=== PATIENT | male | born 1955 | race African-American/Black ===

== ENCOUNTER 2020-10-30 13:31 | Emergency (ER) | payer OTHER ==
--- NOTE | 2020-10-30 16:30 | RAD REPORT ---
EXAM DESCRIPTION: RAD - Foot Right 3 View - 10/30/2020 4:20 pm CLINICAL HISTORY: Right foot pain FINDINGS: No fracture or dislocation is seen. Vascular calcifications are present. Small calcaneal spur.
[2020-10-30] MEDS ORDERED: VANCOMYCIN/NS 1 gm 1 GM/250 ML BAG IV SCH (17:00)
[2020-10-30 17:09] LABS: Absolute Lymphocytes (CBC) 1.6 K/uL (0.7-4.9); Basophils % 0.8 % (0-1.3); Hematocrit 39.8 % (39.6-49.0); Lymphocytes % 26.6 % (15.3-44.8); MPV 9.3 fL (7.6-11.3); RBC Red Blood Cell Count 4.72 M/uL (4.33-5.43)
[2020-10-30 17:24] LABS: Potassium 4.4 mmol/L (3.5-5.1)
--- NOTE | 2020-10-30 17:42 | ER ---
Nurse's Notes [facility] Name: Willy Yoo Age: 64 yrs Sex: Male : 1955 Arrival Date: 10/30/2020 Time: 13:35 Bed 4 Private MD: Diagnosis: Open wound of foot-right great toe Presentation: 10/30 13:41 Chief complaint: Patient states: R foot 1st digit pain, swelling, and wound since ll1 08/27/20. Seen at [facility], prescribed nuzyra. Cant afford this RX. No fever. Coronavirus screen: Client denies travel out of the [place] in the last 14 days. At this time, the client does not indicate any symptoms associated with coronavirus-19. Ebola Screen: Patient denies travel to an Ebola-affected area in the 21 days before illness onset. Initial Sepsis Screen: Does the patient meet any 2 criteria? No. Patient's initial sepsis screen is negative. Does the patient have a suspected source of infection? Yes: Skin breakdown/wound. Risk Assessment: Do you want to hurt yourself or someone else? Patient reports no desire to harm self or others. Onset of symptoms was August 27, 2020. 13:41 Method Of Arrival: Ambulatory ll1 13:41 Acuity: JARAD 3 ll1 Historical: - Allergies: 13:40 No Known Allergies; ll1 - PMHx: 13:40 Diabetes - NIDDM; High Cholesterol; ll1 - PSHx: 13:40 None; ll1 - Immunization history:: Flu vaccine is not up to date. - Social history:: Smoking status: Patient denies any tobacco usage or history of. Screenin:56 Abuse screen: Denies threats or abuse. Nutritional screening: No deficits noted. ap3 Tuberculosis screening: No symptoms or risk factors identified. Fall Risk None identified. Assessment: 16:48 General: Appears in no apparent distress. well groomed, Behavior is calm, cooperative. ap3 Pain: Denies pain. Neuro: Level of Consciousness is awake, alert, obeys commands, Oriented to person, place, time, Gait is steady. Cardiovascular: Patient's skin is warm and dry. Derm: Skin is patients right great toe is black in color. Musculoskeletal: Injury Description:. 17:28 Reassessment: Patient appears in no apparent distress at this time. No changes from ap3 previously documented assessment. Patient and/or family updated on plan of care and expected duration. Pain level reassessed. Patient is alert, oriented x 3, equal unlabored respirations, skin warm/dry/pink. Patient denies pain at this time. 18:00 Reassessment: Pt up for discharge but is waiting for vancomycin infusion to be ap3 completed. 19:09 Reassessment: Patient appears in no apparent distress at this time. No changes from ap3 previously documented assessment. Patient and/or family updated on plan of care and expected duration. Pain level reassessed. Patient is alert, oriented x 3, equal unlabored respirations, skin warm/dry/pink. Vital Signs: 13:41 BP 137 / 81; Pulse 75; Resp 17; Temp 97.8; Pulse Ox 96% on R/A; Weight 74.84 kg; Height ll1 5 ft. 10 in. (177.80 cm); Pain 1/10; 16:58 BP 138 / 95 LA Sitting (auto/); Pulse 77; Pulse Ox 98% on R/A; ap3 13:41 Body Mass Index 23.67 (74.84 kg, 177.80 cm) ll1 ED Course: 13:35 Patient arrived in ED. ds1 13:41 Arm band placed on. ll1 13:54 Triage completed. ll1 15:38 Ira[facility] Lemon [facility]C [facility]. kb 15:38 Chance Davis MD is Attending Physician. kb 16:06 Adele Logan, LEELEE is Primary Nurse. sv 16:19 Foot Right 3 View XRAY In Process Unspecified. EDMS 16:40 Inserted saline lock: 20 gauge in left forearm, using aseptic technique. Blood ap3 collected. 16:45 Initial lab(s) drawn, by co, sent to lab. First set of blood cultures drawn by me. ap3 16:55 Second set of blood cultures drawn by co. ap3 16:57 Patient has correct armband on for positive identification. Bed in low position. Call ap3 light in reach. Side rails up X 1. Adult w/ patient. NIBP on. Door closed. Warm blanket given. Head of bed. 17:15 CBC with Diff Sent. ap3 17:15 Basic Metabolic Panel Sent. ap3 17:15 Blood Culture Adult (2) Sent. ap3 17:28 Dressings: non-adherent dressing x 1 right first toe. ap3 17:32 Primary Nurse role handed off by Adele Logan RN ap3 17:32 Evelyn Hale, LEELEE is Primary Nurse. ap3 19:09 No provider procedures requiring assistance completed. IV discontinued, intact, ap3 bleeding controlled, No redness/swelling at site. Pressure dressing applied. Administered Medications: 17:14 Drug: vancoMYCIN 1 grams Route: IVPB; Infused Over: 2 hrs; Site: left forearm; ap3 19:11 Follow up: Response: No adverse reaction; IV Status: Completed infusion; IV Intake: ap3 250ml Intake: 19:11 IV: 250ml; Total: 250ml. ap3 Outcome: 17:41 Discharge ordered by . kb 19:09 Discharged to home ambulatory, with family. ap3 19:09 Condition: stable 19:09 Discharge instructions given to patient, Instructed on discharge instructions, follow up and referral plans. medication usage, Demonstrated understanding of instructions, follow-up care, medications, Prescriptions given X 2. 19:11 Patient left the ED. ap3 Signatures: Dispatcher [employer] EDMD Irais Lemon, NAIL EXPERT-C NAIL EXPERT-Ckb Adele Logan, Violeta Roque RN ds1 Evelyn Hale RN RN ap3 Lewis, Lynsay, RN RN ll1
--- NOTE | 2020-10-30 17:42 | EDPHYS ---
Physician Documentation [facility] Name: Willy Yoo Age: 64 yrs Sex: Male : 1955 Arrival Date: 10/30/2020 Time: 13:35 Bed 4 Private MD: ED Physician Chance Davis HPI: 10/30 16:14 This 64 yrs old Black Male presents to ER via Ambulatory with complaints of Foot Issue. kb 16:14 The patient presents with pain, swelling, redness, ulceration, discoloration. The kb complaints affect the right first toe. Context: resulted from started as fungal infection, ulcer started and hasn't healed, the patient can fully bear weight, the patient is able to ambulate. Onset: The symptoms/episode began/occurred 1 month(s) ago. Modifying factors: The symptoms are alleviated by nothing, the symptoms are aggravated by nothing. Associated signs and symptoms: Pertinent positives: swelling, Pertinent negatives: calf tenderness, fever, nausea, numbness, rash, tingling, vomiting, warmth, weakness. Severity of symptoms: At their worst the symptoms were moderate, in the emergency department the symptoms are unchanged. The patient has not experienced similar symptoms in the past. The patient has not recently seen a physician. Pt went to a clinical biochemical geneticist 2 days ago for this and was prescribed an antibiotic that was too expensive so he came to see if there was something else that he could get, maybe an IV antibiotic. Historical: - Allergies: 13:40 No Known Allergies; ll1 - PMHx: 13:40 Diabetes - NIDDM; High Cholesterol; ll1 - PSHx: 13:40 None; ll1 - Immunization history:: Flu vaccine is not up to date. - Social history:: Smoking status: Patient denies any tobacco usage or history of. ROS: 16:11 Constitutional: Negative for fever, chills, and weight loss, Respiratory: Negative for kb shortness of breath, cough, wheezing, and pleuritic chest pain, MS/Extremity: Negative for injury and deformity, Neuro: Negative for headache, weakness, numbness, tingling, and seizure. 16:11 Skin: Positive for erythema, swelling, ulceration, of the right first toe. Exam: 16:12 Constitutional: This is a well developed, well nourished patient who is awake, alert, kb and in no acute distress. Head/Face: Normocephalic, atraumatic. Respiratory: Respirations even and unlabored. No increased work of breathing, no retractions or nasal flaring. MS/ Extremity: Pulses equal, no cyanosis. Neurovascular intact. Full, normal range of motion. Neuro: Awake and alert, GCS 15, oriented to person, place, time, and situation. Moves all extremities. Normal gait. 16:12 Skin: lesion(s), noted, and can be described as erythematous, ulcerated, violaceous, located on the right first toe. Vital Signs: 13:41 BP 137 / 81; Pulse 75; Resp 17; Temp 97.8; Pulse Ox 96% on R/A; Weight 74.84 kg; Height ll1 5 ft. 10 in. (177.80 cm); Pain 1/10; 16:58 BP 138 / 95 LA Sitting (auto/); Pulse 77; Pulse Ox 98% on R/A; ap3 13:41 Body Mass Index 23.67 (74.84 kg, 177.80 cm) ll1 MDM: 15:38 Patient medically screened. kb 16:10 Data reviewed: vital signs, nurses notes. Data interpreted: Pulse oximetry: on room air kb is 96 %. Interpretation: normal. 17:40 Counseling: I had a detailed discussion with the patient and/or guardian regarding: the kb historical points, exam findings, and any diagnostic results supporting the discharge/admit diagnosis, lab results, radiology results, the need for outpatient follow up, a clinical biochemical geneticist, to return to the emergency department if symptoms worsen or persist or if there are any questions or concerns that arise at home. ED course: Pt has follow up appt with clinical biochemical geneticist on Tuesday. 10/30 15:53 Order name: Basic Metabolic Panel kb 10/30 15:53 Order name: CBC with Diff kb 10/30 15:53 Order name: Blood Culture Adult (2) kb 10/30 15:53 Order name: Basic Metabolic Panel; Complete Time: 17:25 EDMS 10/30 15:53 Order name: CBC with Automated Diff; Complete Time: 17:14 EDMS 10/30 15:53 Order name: Blood Culture EDMS 10/30 15:53 Order name: IV Start; Complete Time: 17:15 kb 10/30 15:53 Order name: Foot Right 3 View XRAY; Complete Time: 16:32 kb 10/30 17:40 Order name: Wound dressing; Complete Time: 17:56 kb Administered Medications: 17:14 Drug: vancoMYCIN 1 grams Route: IVPB; Infused Over: 2 hrs; Site: left forearm; ap3 19:11 Follow up: Response: No adverse reaction; IV Status: Completed infusion; IV Intake: ap3 250ml Disposition: 10/31 06:51 Co-signature as Attending Physician, Chance Davis MD I agree with the assessment and kdr plan of care. Disposition: 10/30/20 17:41 Discharged to Home. Impression: Open wound of foot - right great toe. - Condition is Stable. - Discharge Instructions: Wound Care. - Prescriptions for Doxycycline Hyclate 100 mg Oral Tablet - take 1 tablet by ORAL route every 12 hours; 20 tablet. Bactrim DS 800- 160 mg Oral Tablet - take 1 tablet by ORAL route every 12 hours for 10 days; 20 tablet. - Medication Reconciliation Form, Thank You Letter, Antibiotic Education, Prescription Opioid Use form. - Follow up: Emergency Department; When: As needed; Reason: Worsening of condition. Follow up: Private Physician; When: 2 - 3 days; Reason: Recheck today's complaints, Continuance of care, Re-evaluation by your physician. Signatures: Dispatcher [employer] EDMS Irais Lemon, ÁLVARO-C DEBURRING MACHINE OPERATOR-Chance Talbert MD MD [facility] Evelyn Hale RN RN ap3 Milly Muñoz RN RN ll1 Corrections: (The following items were deleted from the chart) 10/30 19:11 17:41 10/30/2020 17:41 Discharged to Home. Impression: Open wound of foot - right great ap3 toe. Condition is Stable. Forms are Medication Reconciliation Form, Thank You Letter, Antibiotic Education, Prescription Opioid Use. Follow up: Emergency Department; When: As needed; Reason: Worsening of condition. Follow up: Private Physician; When: 2 - 3 days; Reason: Recheck today's complaints, Continuance of care, Re-evaluation by your physician. kb
[2020-10-30 19:19] VITALS: TEMP 97.8
[2020-10-30 19:20] VITALS: BP 138/95; O2SAT 98
== END 2020-10-30 19:11 | disposition home or self-care (01) ==
LOC: ER 13:31
DX: S91.101A Unspecified open wound of right great toe without damage to nail, initial encounter (principal); E11.9 Type 2 diabetes mellitus without complications
CPT/HCPCS: 96365; 87040 ×2; 85025; 80048; 36415; 73630; 99284; 96366; J3370

== ENCOUNTER 2023-06-15 17:45 | Inpatient (IN) | payer OTHER ==
--- OUTSIDE RECORDS SUMMARY | 2023-06-15 17:50 | XMS REPORT | Continuity of Care Document ---
:1955 Author Organization [facility] t Address [address] [place] [address] [address] [place] [address] Care Team Providers Name Role Phone Asked, No Pcp Primary Care Physician Unavailable JUDSON FOX Attending Clinician Unavailable BERNARDINO LUGO Attending Clinician Unavailable BERNARDINO LUGO Attending Clinician Unavailable ERICKA VALDES Attending Clinician Unavailable LAB90 Attending Clinician Unavailable XI MEJÍA Attending Clinician Unavailable August Munguia Attending Clinician TORIN RASCON Attending Clinician Unavailable JUDSON FOX Attending Clinician Unavailable Bruce Heller MD Attending Clinician Saeed Mccartney MD Attending Clinician Joann Durant DPM Attending Clinician Payers Payer Name Policy Type Policy Number Effective Date Expiration Date S yesenia [employer] MEDICARE PPO [id number] 2020 00:00:00 AET[employer] [place] PPO 5 [id number] 2021 00:00:00 Problems Condition Condition Condition Status Onset Resolution Last Treating Co mments Source Name Details Category Date Date Treatment Clinician Date 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 Ghislaine diabetes diabetes 1-29 Seybol d mellitus mellitus 00:00: - without without 00 Externa complicati complicati l on, on, without without long-term long-term current current use of use of insulin insulin DM type 2 DM type 2 Disease Active 2021-07 Ajith cotton with with 08-15 Seybold diabetic diabetic 00:00: - mixed mixed 00 Externa hyperlipid hyperlipid l emia emia Hyperlipid Hyperlipid Disease Active 2021-07 Marly gray emia 08-15 Seybold 00:00: - 00 Externa l Status Status Disease Active [facility] post left post left 03-20 Heal th hip hip 00:00: replacemen replacemen 00 t t Primary Primary Disease Active [facility] osteoarthr osteoarthr 01-12 He alth itis of itis of 00:00: left hip left hip 00 Hip pain, Hip pain, Disease Active [facility] left left 01-12 Health 00:00: 00 Hyperlipid Hyperlipi Problem Active 2021-02-14 Memoria emia, demia, 04:10:54 l unspecifie unspecifie He yanique d d hyperlipid hyperlipid emia type emia type Active Problem 02/14/2021 Wen Clay M.D P.A. PAD PAD Problem Active 2021-02-14 Ponceor ia (periphera (periphera 04:10:54 l l artery l artery Rivera n disease) disease) Active Problem 02/14/2021 Wen Clay M.D P.A. Type 2 Type 2 Problem Active 2021-02-14 Neymar fernie diabetes diabetes 04:10:54 l mellitus mellitus Rivera n without without complicati complicati on, on, without without long-term long-term current current use of use of insulin insulin Active Problem 02/14/2021 Wen Clay M.D P.A. Pre-op Pre-op Diagnosis Active 2021-02-14 Wv moria evaluation evaluation 04:10:54 l Active Ozzie Diagnosis 02/14/2021 Wen Clay M.D P.A. Prostate Prostate Diagnosis Active 2020-12-29 [place] cancer cancer 04:10:27 l screening screening Herm da Active Diagnosis 12/29/2020 Wen Clay M.D P.A. Encounter Encounter Diagnosis Active 2020-12-29 Memoria for for 04:10:27 l [facility] adult adult medical medical examinatio examinatio n without n without abnormal abnormal findings findings Active Diagnosis 12/29/2020 Wen Cedillo Allergies, Adverse Reactions, Alerts Allergy Allergy Status Severity Reaction(s) Onset Inactive Treating Comm ents Source Name Type Date Date Clinician Rolf Bansal Active Info Not Neymar fernie Available 08 l 00:00: Ozzie 00 Social History Social Habit Start Date Stop Date Quantity Comments Source History [facility] Health Alcohol Std Drinks History [facility] Health Alcohol Binge History [facility] Alcohol Comment [facility] intake 2022-06-15 2022-06-15 Lifetime Ghislaine Cotton bold - 00:00:00 00:00:00 non-drinker External (finding) Exposure to 2022-05-25 2022-06-04 Not sure Ghislaine George d - SARS-CoV-2 (event) 00:00:00 08:06:00 Squirrel Man al History of Social 2021-05-06 2021-05-[address] function 00:00:00 00:00:00 Hospital Tobacco use and 2021-01-12 2021-01-12 Smokeless [facility] exposure 00:00:00 00:00:00 tobacco non-user History [facility] 2021-01-12 2021-01-12 [facility] Alcohol Frequency 00:00:00 00:00:00 Sex [birth year] [employer] 00:00:00 00:00:00 Hospital Smoking Status Start Date Stop Date Source Unknown if ever smoked [facility] Never smoked tobacco Ghislaine Dorsey old - External Medications Ordered Filled Start Stop Current Ordering Indication Dosage Frequency Signature Comments Components Source Medication Medication Date Date Medication? Clinician (SIG) Name Name French Espino 2021-07 Yes 50mg Take 50 mg K elsey MG oral 1-08 by mouth Seybold Tablet 00:00: daily - 00 Externa l Jardiance 2021-07 Yes 1{tbl} Take 1 Gabriella ey 25 MG oral 1-08 tablet by Seyb old Tablet 00:00: mouth 2 - 00 times Externa daily FOR l 90 DAYS Atorvastati 2021-07 Yes 20mg Take 20 mg Ghislaine n Calcium 1-06 by mouth 2 Seyb old 20 MG oral 00:00: times - Tablet 00 daily FOR Externa 90 DAYS l Metformin Yes 500mg Take 500 Ajith sey HCl ER 500 9-13 mg by Seybold MG oral 00:00: mouth 2 - TABLET SR 00 times Externa 24 HR daily l Xarelto 2.5 Yes 2.5mg Q.5D Take 2.5 U T MG tablet 9-23 mg by Health 00:00: mouth 2 00 (two) times a day. Xarelto 2.5 Yes 2.5mg Q.5D Take 2.5 U T MG tablet 9-23 mg by Health 00:00: mouth 2 00 (two) times a day. meloxicam 2021- No [id number] 15mg QD Take 1 UT (Mobic) 15 03-20 tablet (15 He alth MG tablet 00:00: 04:59 mg total) 00 :00 by mouth 1 (one) time each day. meloxicam 2021- No [id number] 15mg QD Take 1 UT (Mobic) 15 03-20 tablet (15 He alth MG tablet 00:00: 04:59 mg total) 00 :00 by mouth 1 (one) time each day. meloxicam 2021- No [id number] 15mg QD Take 1 UT (Mobic) 15 03-20 tablet (15 He alth MG tablet 00:00: 04:59 mg total) 00 :00 by mouth 1 (one) time each day. meloxicam 2021- No [id number] 15mg QD Take 1 UT (Mobic) 15 03-20 tablet (15 He alth MG tablet 00:00: 04:59 mg total) 00 :00 by mouth 1 (one) time each day. HYDROcodone 2020- No [id number] 1{tbl} Take 1 UT -acetaminop 03-20 tablet by He alth hen ([place]) 00:00: 04:59 mouth 5-325 MG 00 :00 every 4 tablet (four) hours if needed for severe pain for up to 7 days. HYDROcodone 2020- No [id number] 1{tbl} Take 1 UT -acetaminop -09 23-11 tablet by He alth hen ([place]) 00:00: 04:59 mouth 5-325 MG 00 :00 every 4 tablet (four) hours if needed for severe pain for up to 7 days. pregabalin Yes [id number] 100mg Q.[id number] Take 1 UT (Lyrica) 8-24 [id number] capsule He alth 100 MG 00:00: 3D (100 mg capsule 00 total) by mouth 3 (three) times a day. pregabalin Yes [id number] 100mg Q.[id number] Take 1 UT (Lyrica) 8- [id number] capsule He alth 100 MG 00:00: 3D (100 mg capsule 00 total) by mouth 3 (three) times a day. docusate 2020- No [id number] 100mg Q.5D Take 1 UT sodium 03-10 capsule Health (Colace) 00:00: 04:59 (100 mg 100 MG 00 :00 total) by capsule mouth 2 (two) times a day if needed for constipati on. docusate 2020- No [id number] 100mg Q.5D Take 1 UT sodium 8-04-25 capsule Health (Colace) 00:00: 04:59 (100 mg 100 MG 00 :00 total) by capsule mouth 2 (two) times a day if needed for constipati on. docusate 2020- No [id number] 100mg Q.5D Take 1 UT sodium 8-04-25 capsule Health (Colace) 00:00: 04:59 (100 mg 100 MG 00 :00 total) by capsule mouth 2 (two) times a day if needed for constipati on. docusate 2020- No [id number] 100mg Q.5D Take 1 UT sodium 8-24 04-25 capsule Health (Colace) 00:00: 04:59 (100 mg 100 MG 00 :00 total) by capsule mouth 2 (two) times a day if needed for constipati on. docusate 2020- No [id number] 100mg Q.5D Take 1 UT sodium 03-10 capsule Health (Colace) 00:00: 04:59 (100 mg 100 MG 00 :00 total) by capsule mouth 2 (two) times a day if needed for constipati on. docusate 2020- No [id number] 100mg Q.5D Take 1 UT sodium 03-10 capsule Health (Colace) 00:00: 04:59 (100 mg 100 MG 00 :00 total) by capsule mouth 2 (two) times a day if needed for constipati on. pregabalin 2020- No [id number] 100mg Q.[id number] Take 1 UT (Lyrica) 03-10 [id number] capsule H ealth 100 MG 00:00: 04:59 3D (100 mg capsule 00 :00 total) by mouth 3 (three) times a day. pregabalin 2020- No [id number] 100mg Q.[id number] Take 1 UT (Lyrica) 03-10 [id number] capsule H ealth 100 MG 00:00: 04:59 3D (100 mg capsule 00 :00 total) by mouth 3 (three) times a day. pregabalin 2020- No [id number] 100mg Q.[id number] Take 1 UT (Lyrica) 03-10 [id number] capsule H ealth 100 MG 00:00: 04:59 3D (100 mg capsule 00 :00 total) by mouth 3 (three) times a day. pregabalin 2020- No [id number] 100mg Q.[id number] Take 1 UT (Lyrica) 03-10 [id number] capsule H ealth 100 MG 00:00: 04:59 3D (100 mg capsule 00 :00 total) by mouth 3 (three) times a day. aspirin 81 2020- No 81mg Q.5D Take 1 UT MG EC 03-10 tablet (81 Health tablet 00:00: 04:59 mg total) 00 :00 by mouth 2 (two) times a day for 20 days. For DVT prophylaxi s aspirin 81 2020- No 81mg Q.5D Take 1 UT MG EC 03-10-14 tablet (81 Health tablet 00:00: 04:59 mg total) 00 :00 by mouth 2 (two) times a day for 20 days. For DVT prophylaxi s aspirin 81 2020-0 2020- No 81mg Q.5D Take 1 UT MG EC 03-10-14 tablet (81 Health tablet 00:00: 04:59 mg total) 00 :00 by mouth 2 (two) times a day for 20 days. For DVT prophylaxi s aspirin 81 0 2020- No 81mg Q.5D Take 1 UT MG EC 03-10-14 tablet (81 Health tablet 00:00: 04:59 mg total) 00 :00 by mouth 2 (two) times a day for 20 days. For DVT prophylaxi s ferrous Yes 1 TAB BY UT sulfate 325 8-23 MOUTH Health (65 Fe) MG 00:00: DAILY,INST EC tablet 00 R GIVE WITH ORANGE JUICE ferrous Yes 1 TAB BY UT sulfate 325 8-23 MOUTH Health (65 Fe) MG 00:00: DAILY,INST EC tablet 00 R GIVE WITH ORANGE JUICE Doxycycline Yes Gulnur Kul as Memoria Hyclate - [place] directed l 04:10: Juluvia Yes Gulnur Kul 1 tablet Memoria - [place] l 04:10: Santyl Yes Gulnur Kul not Memor ia 7- [place] defined l 04:10: Atorvastati Yes Gulnur Kul 1 tablet Memoria n Calcium 7- [place] l 04:10: Metformin Yes Gulnur Kul 1 tablet Memoria HCl 7- [place] with a l 04:10: meal Doxycycline Yes Gulnur Kul as Memoria Hyclate 7- [place] directed l 04:10: Januvia Yes Gulnur Kul 1 tablet Memoria 7- [place] l 04:10: Santyl Yes Gulnur Kul not Memor ia 7-09 [place] defined l 04:10: Atorvastati Yes Gulnur Kul 1 tablet Memoria n Calcium 7-09 [place] l 04:10: Metformin Yes Gulnur Kul 1 tablet Memoria HCl 7-09 [place] with a l 04:10: meal Doxycycline Yes Gulnur Kul as Memoria Hyclate 7-09 [place] directed l 04:10: ia Yes Gulnur Kul 1 tablet Memoria 7-09 [place] l 04:10: Santyl Yes Gulnur Kul not Memor ia 7-09 [place] defined l 04:10: Atorvastati Yes Gulnur Kul 1 tablet Memoria n Calcium 7-09 [place] l 04:10: Metformin Yes Gulnur Kul 1 tablet Memoria HCl 7-09 [place] with a l 04:10: meal Doxycycline Yes Gulnur Kul as Memoria Hyclate 7-09 [place] directed l 04:10: ia Yes Gulnur Kul 1 tablet Memoria 7-09 [place] l 04:10: Santyl Yes Gulnur Kul not Memor ia 7-09 [place] defined l 04:10: Atorvastati Yes Gulnur Kul 1 tablet Memoria n Calcium 7-09 [place] l 04:10: Metformin Yes Gulnur Kul 1 tablet Memoria HCl 7-09 [place] with a l 04:10: meal Doxycycline Yes Gulnur Kul as Memoria Hyclate 7-09 [place] directed l 04:10: ia Yes Gulnur Kul 1 tablet Memoria 7-09 [place] l 04:10: Santyl Yes Gulnur Kul not Memor ia 7-09 [place] defined l 04:10: Metformin Yes Gulnur Kul 1 tablet Memoria HCl 7-09 [place] with a l 04:10: meal Atorvastati Yes Gulnur Kul 1 tablet Memoria n Calcium 7-09 [place] l 04:10: Juluvia Yes Gulnur Kul 1 tablet Memoria 7-09 [place] l 04:10: Doxycycline Yes Gulnur Kul as Memoria Hyclate 7-09 [place] directed l 04:10: Santyl Yes Gulnur Kul not Memor ia 7-09 [place] defined l 04:10: Metformin Yes Gulnur Kul 1 tablet Memoria HCl 7-09 [place] with a l 04:10: meal Atorvastati Yes Gulnur Kul 1 tablet Memoria n Calcium 7-09 [place] l 04:10: ia Yes Gulnur Kul 1 tablet Memoria 7-09 [place] l 04:10: Doxycycline Yes Gulnur Kul as Memoria Hyclate 7-09 [place] directed l 04:10: Santyl Yes Gulnur Kul not Memor ia 7-09 [place] defined l 04:10: Metformin Yes Gulnur Kul 1 tablet Memoria HCl 7-09 [place] with a l 04:10: meal Atorvastati Yes Gulnur Kul 1 tablet Memoria n Calcium 7-09 [place] l 04:10: Juluvia Yes Gulnur Kul 1 tablet Memoria 7-09 [place] l 04:10: Doxycycline Yes Gulnur Kul as Memoria Hyclate 7-09 [place] directed l 04:10: Santyl Yes Gulnur Kul not Memor ia 7-09 [place] defined l 04:10: Santyl Yes Gulnur Kul not Memor ia 7-09 [place] defined l 04:10: Metformin Yes Gulnur Kul 1 tablet Memoria HCl 7-09 [place] with a l 04:10: meal Atorvastati Yes Gulnur Kul 1 tablet Memoria n Calcium 7-09 [place] l 04:10: Januvia Yes Gulnur Kul 1 tablet Memoria 7-09 [place] l 04:10: Doxycycline Yes Gulnur Kul as Memoria Hyclate 7-09 [place] directed l 04:10: Metformin Yes Gulnur Kul 1 tablet Memoria HCl 7-09 [place] with a l 04:10: meal Atorvastati Yes Gulnur Kul 1 tablet Memoria n Calcium 7-09 [place] l 04:10: Januvia Yes Gulnur Kul 1 tablet Memoria 7-09 [place] l 04:10: Doxycycline Yes Gulnur Kul as Memoria Hyclate 7-09 [place] directed l 04:10: Santyl Yes Gulnur Kul not Memor ia 7-09 [place] defined l 04:10: Atorvastati Yes Gulnur Kul 1 tablet Memoria n Calcium 7-09 [place] l 04:10: Metformin Yes Gulnur Kul 1 tablet Memoria HCl 7-09 [place] with a l 04:10: meal meloxicam 2021- No [id number] 15mg QD Take 1 UT (Mobic) 15 01-22- tablet (15 He alth MG tablet 00:00: 04:59 mg total) 00 :00 by mouth 1 (one) time each day. meloxicam 2021- No [id number] 15mg QD Take 1 UT (Mobic) 15 01-22 tablet (15 He alth MG tablet 00:00: 04:59 mg total) 00 :00 by mouth 1 (one) time each day. meloxicam No [id number] 15mg QD Take 1 UT (Mobic) 15 01-22 tablet (15 He alth MG tablet 00:00: 04:59 mg total) 00 :00 by mouth 1 (one) time each day. meloxicam No [id number] 15mg QD Take 1 UT (Mobic) 15 01-22 tablet (15 He alth MG tablet 00:00: 00:00 mg total) 00 :00 by mouth 1 (one) time each day. meloxicam No [id number] 15mg QD Take 1 UT (Mobic) 15 01-22 tablet (15 He alth MG tablet 00:00: 00:00 mg total) 00 :00 by mouth 1 (one) time each day. meloxicam No [id number] 15mg QD Take 1 UT (Mobic) 15 01-22 tablet (15 He alth MG tablet 00:00: 00:00 mg total) 00 :00 by mouth 1 (one) time each day. meloxicam No [id number] 15mg QD Take 1 UT (Mobic) 15 01-22 tablet (15 He alth MG tablet 00:00: 00:00 mg total) 00 :00 by mouth 1 (one) time each day. methylPREDN 2020-0 Yes [id number] Use as UT ISolone 6-28 9108 directed Health (Medrol 00:00: by package Dospak) 4 00 instructio MG tablets ns methylPREDN 2020-0 Yes [id number] Use as UT ISolone 6-28 9108 directed Health (Medrol 00:00: by package Dospak) 4 00 instructio MG tablets ns methylPREDN 2021-0 Yes [id number] Use as UT ISolone 6-28 9108 directed Health (Medrol 00:00: by package Dospak) 4 00 instructio MG tablets ns methylPREDN 2020-0 Yes [id number] Use as UT ISolone 6-28 9108 directed Health (Medrol 00:00: by package Dospak) 4 00 instructio MG tablets ns methylPREDN 2021-0 Yes [id number] Use as UT ISolone 6-28 9108 directed Health (Medrol 00:00: by package Dospak) 4 00 instructio MG tablets ns methylPREDN 2021-0 Yes [id number] Use as UT ISolone 6-28 9108 directed Health (Medrol 00:00: by package Dospak) 4 00 instructio MG tablets ns methylPREDN 2021-0 Yes [id number] Use as UT ISolone 6-28 9108 directed Health (Medrol 00:00: by package Dospak) 4 00 instructio MG tablets ns methylPREDN 2021-0 Yes [id number] Use as UT ISolone 6-28 9108 directed Health (Medrol 00:00: by package Dospak) 4 00 instructio MG tablets ns methylPREDN 2021-0 Yes [id number] Use as UT ISolone 6-28 9108 directed Health (Medrol 00:00: by package Dospak) 4 00 instructio MG tablets ns methylPREDN 2021-0 Yes [id number] Use as UT ISolone 6-28 9108 directed Health (Medrol 00:00: by package Dospak) 4 00 instructio MG tablets ns methylPREDN 2021-0 Yes [id number] Use as UT ISolone 6-28 9108 directed Health (Medrol 00:00: by package Dospak) 4 00 instructio MG tablets ns methylPREDN 2021-0 Yes [id number] Use as UT ISolone 6-28 9108 directed Health (Medrol 00:00: by package Dospak) 4 00 instructio MG tablets ns methylPREDN 2021-0 Yes [id number] Use as UT ISolone 6-28 9108 directed Health (Medrol 00:00: by package Dospak) 4 00 instructio MG tablets ns meloxicam 1-0 2021- No [id number] 15mg QD Take 1 UT (Mobic) 01-12 9108 tablet (15 He alth MG tablet 00:00: 04:59 mg total) 00 :00 by mouth 1 (one) time each day. meloxicam 1-0 2021- No [id number] 15mg QD Take 1 UT (Mobic) 15 01-12 9108 tablet (15 He alth MG tablet 00:00: 04:59 mg total) 00 :00 by mouth 1 (one) time each day. meloxicam 2021- No [id number] 15mg QD Take 1 UT (Mobic) 15 01-12 9108 tablet (15 He alth MG tablet 00:00: 04:59 mg total) 00 :00 by mouth 1 (one) time each day. meloxicam 2021- No [id number] 15mg QD Take 1 UT (Mobic) 15 01-12 9108 tablet (15 He alth MG tablet 00:00: 04:59 mg total) 00 :00 by mouth 1 (one) time each day. meloxicam 2020- No [id number] 15mg QD Take 1 UT (Mobic) 15 01-12 9108 tablet (15 He alth MG tablet 00:00: 00:00 mg total) 00 :00 by mouth 1 (one) time each day. meloxicam 2020- No [id number] 15mg QD Take 1 UT (Mobic) 15 01-12 9108 tablet (15 He alth MG tablet 00:00: 00:00 mg total) 00 :00 by mouth 1 (one) time each day. meloxicam 2020- No [id number] 15mg QD Take 1 UT (Mobic) 15 01-12 9108 tablet (15 He alth MG tablet 00:00: 00:00 mg total) 00 :00 by mouth 1 (one) time each day. meloxicam 2020- No [id number] 15mg QD Take 1 UT (Mobic) 15 01-12 9108 tablet (15 He alth MG tablet 00:00: 00:00 mg total) 00 :00 by mouth 1 (one) time each day. Januvia 100 0 Yes UT MG tablet 01-09 Health 00:00: 00 Januvia 100 0 Yes UT MG tablet 01-09 Health 00:00: 00 Januvia 100 2020-0 Yes UT MG tablet 01-09 Health 00:00: 00 Januvia 100 2020-0 Yes UT MG tablet 01-09 Health 00:00: 00 French 2020-0 Yes UT MG tablet 01-09 Health 00:00: 00 French 2020-0 Yes UT MG tablet 01-09 Health 00:00: 00 French 2020-0 Yes UT MG tablet 01-09 Health 00:00: 00 French 2020-0 Yes UT MG tablet 01-09 Health 00:00: 00 French 2020-0 Yes UT MG tablet 01-09 Health 00:00: 00 French 2020-0 Yes UT MG tablet 01-09 Health 00:00: 00 French 2020-0 Yes UT MG tablet 01-09 Health 00:00: 00 French 2020-0 Yes UT MG tablet 01-09 Health 00:00: 00 French 2020-0 Yes UT MG tablet 01-09 Health 00:00: 00 Doxycycline 2020-0 Yes Wen not Mem oria 6-14 [facility] defined l 04:10: Ozzie Doxycycline 0 Yes Wen not Mem oria 6-14 [facility] defined l 04:10: Ozzie Doxycycline 0 Yes Wen not Mem oria 6-14 [facility] defined l 04:10: Ozzie Doxycycline 2020-0 Yes Wen not Mem oria 6-14 [facility] defined l 04:10: Ozzie Doxycycline 2020-0 Yes Wen not Mem oria 6-14 [facility] defined l 04:10: Ozzie Doxycycline 2020-0 Yes Wen not Mem oria 6-14 [facility] defined l 04:10: Ozzie Doxycycline 2020-0 Yes Wen not Mem oria 6-14 [facility] defined l 04:10: Ozzie Doxycycline 2020-0 Yes Wen not Mem oria 6-14 [facility] defined l 04:10: Ozzie Doxycycline 2020-0 Yes Wen not Mem oria 6-14 [facility] defined l 04:10: Ozzie Doxycycline 2020-0 Yes Wen not Mem oria 6-14 [facility] defined l 04:10: Ozzie gabapentin 2020-0 Yes UT (Neurontin) 6 Health 100 MG 00:00: capsule 00 gabapentin 2020-0 Yes UT (Neurontin) 6-03 Health 100 MG 00:00: capsule 00 gabapentin 2020-0 Yes UT (Neurontin) 6-03 Health 100 MG 00:00: capsule 00 gabapentin 2020-0 Yes UT (Neurontin) 6-03 Health 100 MG 00:00: capsule 00 gabapentin 202-0 Yes UT (Neurontin) 6-03 Health 100 MG 00:00: capsule 00 gabapentin 2021-0 Yes UT (Neurontin) 6-03 Health 100 MG 00:00: capsule 00 gabapentin 2020-0 Yes UT (Neurontin) 6-03 Health 100 MG 00:00: capsule 00 gabapentin 2020-0 Yes UT (Neurontin) 6-03 Health 100 MG 00:00: capsule 00 gabapentin 2020-0 Yes UT (Neurontin) 6-03 Health 100 MG 00:00: capsule 00 gabapentin 2020-0 Yes UT (Neurontin) 6-03 Health 100 MG 00:00: capsule 00 gabapentin 2020-0 Yes UT (Neurontin) 6-03 Health 100 MG 00:00: capsule 00 gabapentin 2020-0 Yes UT (Neurontin) 6-03 Health 100 MG 00:00: capsule 00 gabapentin 2020-0 Yes UT (Neurontin) 6-03 Health 100 MG 00:00: capsule 00 Santyl 250 2020-0 Yes APPLY UT UNIT/GM 5-06 TOPICALLY Health ointment 00:00: ONCE DAILY 00 FOR DEBRIDEMEN T Santyl 250 2020-0 Yes APPLY UT UNIT/GM 5-06 TOPICALLY Health ointment 00:00: ONCE DAILY 00 FOR DEBRIDEMEN T Santyl 250 2020-0 Yes APPLY UT UNIT/GM 5-06 TOPICALLY Health ointment 00:00: ONCE DAILY 00 FOR DEBRIDEMEN T Santyl 250 2020-0 Yes APPLY UT UNIT/GM 5-06 TOPICALLY Health ointment 00:00: ONCE DAILY 00 FOR DEBRIDEMEN T Santyl 250 2020-0 Yes APPLY UT UNIT/GM 5-06 TOPICALLY Health ointment 00:00: ONCE DAILY 00 FOR DEBRIDEMEN T Santyl 250 2020-0 Yes APPLY UT UNIT/GM 5-06 TOPICALLY Health ointment 00:00: ONCE DAILY 00 FOR DEBRIDEMEN T Santyl 250 2020-0 Yes APPLY UT UNIT/GM 5-06 TOPICALLY Health ointment 00:00: ONCE DAILY 00 FOR DEBRIDEMEN T Santyl 250 2020-0 Yes APPLY UT UNIT/GM 5-06 TOPICALLY Health ointment 00:00: ONCE DAILY 00 FOR DEBRIDEMEN T Santyl 250 2020-0 Yes APPLY UT UNIT/GM 5-06 TOPICALLY Health ointment 00:00: ONCE DAILY 00 FOR DEBRIDEMEN T Santyl 250 2020-0 Yes APPLY UT UNIT/GM 5-06 TOPICALLY Health ointment 00:00: ONCE DAILY 00 FOR DEBRIDEMEN T Santyl 250 2020-0 Yes APPLY UT UNIT/GM 5-06 TOPICALLY Health ointment 00:00: ONCE DAILY 00 FOR DEBRIDEMEN T Santyl 250 2020-0 Yes APPLY UT UNIT/GM 5-06 TOPICALLY Health ointment 00:00: ONCE DAILY 00 FOR DEBRIDEMEN T Santyl 250 2020-0 Yes APPLY UT UNIT/GM 5-06 TOPICALLY Health ointment 00:00: ONCE DAILY 00 FOR DEBRIDEMEN T clopidogrel 1-0 Yes 75mg QD Take 75 mg UT (Plavix) 75 5-05 by mouth 1 He alth MG tablet 00:00: (one) time 00 each day. clopidogrel 2021-0 Yes 75mg QD Take 75 mg UT (Plavix) 75 5-05 by mouth 1 He alth MG tablet 00:00: () time 00 each day. clopidogrel 2021-0 Yes 75mg QD Take 75 mg UT (Plavix) 75 5-05 by mouth 1 He alth MG tablet 00:00: () time 00 each day. clopidogrel 2021-0 Yes 75mg QD Take 75 mg UT (Plavix) 75 5-05 by mouth 1 He alth MG tablet 00:00: () time 00 each day. clopidogrel 2021-0 Yes 75mg QD Take 75 mg UT (Plavix) 75 5-05 by mouth 1 He alth MG tablet 00:00: () time 00 each day. clopidogrel 2021-0 Yes 75mg QD Take 75 mg UT (Plavix) 75 5-05 by mouth 1 He alth MG tablet 00:00: () time 00 each day. clopidogrel 2021-0 Yes 75mg QD Take 75 mg UT (Plavix) 75 5-05 by mouth 1 He alth MG tablet 00:00: () time 00 each day. clopidogrel 2021-0 Yes 75mg QD Take 75 mg UT (Plavix) 75 5-05 by mouth 1 He alth MG tablet 00:00: (one) time 00 each day. clopidogrel 2021-0 Yes 75mg QD Take 75 mg UT (Plavix) 75 5-05 by mouth 1 He alth MG tablet 00:00: (one) time 00 each day. clopidogrel 2021-0 Yes 75mg QD Take 75 mg UT (Plavix) 75 5-05 by mouth 1 He alth MG tablet 00:00: (one) time 00 each day. clopidogrel 2021-0 Yes 75mg QD Take 75 mg UT (Plavix) 75 5-05 by mouth 1 He alth MG tablet 00:00: (one) time 00 each day. clopidogrel 2021-0 Yes 75mg QD Take 75 mg UT (Plavix) 75 5-05 by mouth 1 He alth MG tablet 00:00: (one) time 00 each day. clopidogrel 2021-0 Yes 75mg QD Take 75 mg UT (Plavix) 75 5-05 by mouth 1 He alth MG tablet 00:00: (one) time 00 each day. atorvastati 2021-0 Yes 20mg QD Take 20 mg UT n (Lipitor) 4-27 by mouth 1 He alth 20 MG 00:00: (one) time tablet 00 each day. atorvastati 2021-0 Yes 20mg QD Take 20 mg UT n (Lipitor) 4-27 by mouth 1 He alth 20 MG 00:00: (one) time tablet 00 each day. atorvastati 2021-0 Yes 20mg QD Take 20 mg UT n (Lipitor) 4-27 by mouth 1 He alth 20 MG 00:00: (one) time tablet 00 each day. atorvastati 2021-0 Yes 20mg QD Take 20 mg UT n (Lipitor) 4-27 by mouth 1 He alth 20 MG 00:00: (one) time tablet 00 each day. atorvastati 2021-0 Yes 20mg QD Take 20 mg UT n (Lipitor) 4-27 by mouth 1 He alth 20 MG 00:00: (one) time tablet 00 each day. atorvastati 2021-0 Yes 20mg QD Take 20 mg UT n (Lipitor) 4-27 by mouth 1 He alth 20 MG 00:00: (one) time tablet 00 each day. atorvastati 2021-0 Yes 20mg QD Take 20 mg UT n (Lipitor) 4-27 by mouth 1 He alth 20 MG 00:00: (one) time tablet 00 each day. atorvastati 2021-0 Yes 20mg QD Take 20 mg UT n (Lipitor) 4-27 by mouth 1 He alth 20 MG 00:00: (one) time tablet 00 each day. atorvastati 2021-0 Yes 20mg QD Take 20 mg UT n (Lipitor) 4-27 by mouth 1 He alth 20 MG 00:00: (one) time tablet 00 each day. atorvastati 2021-0 Yes 20mg QD Take 20 mg UT n (Lipitor) 4-27 by mouth 1 He alth 20 MG 00:00: (one) time tablet 00 each day. atorvastati 2021-0 Yes 20mg QD Take 20 mg UT n (Lipitor) 4-27 by mouth 1 He alth 20 MG 00:00: (one) time tablet 00 each day. atorvastati 2021-0 Yes 20mg QD Take 20 mg UT n (Lipitor) 4-27 by mouth 1 He alth 20 MG 00:00: (one) time tablet 00 each day. atorvastati 2021-0 Yes 20mg QD Take 20 mg UT n (Lipitor) 4-27 by mouth 1 He alth 20 MG 00:00: (one) time tablet 00 each day. Synjardy XR 2021-0 Yes 2{tbl} QD Take 2 UT 12.5-1000 3-04 tablets by Heal th MG 24 hr 00:00: mouth 1 tablet 00 (one) time each day. Synjardy XR 2021-0 Yes 2{tbl} QD Take 2 UT 12.5-1000 3-04 tablets by Heal th MG 24 hr 00:00: mouth 1 tablet 00 (one) time each day. Synjardy XR 2021-0 Yes 2{tbl} QD Take 2 UT 12.5-1000 3-04 tablets by Heal th MG 24 hr 00:00: mouth 1 tablet 00 (one) time each day. Synjardy XR 2021-0 Yes 2{tbl} QD Take 2 UT 12.5-1000 3-04 tablets by Heal th MG 24 hr 00:00: mouth 1 tablet 00 (one) time each day. Synjardy XR 2021-0 Yes 2{tbl} QD Take 2 UT 12.5-1000 3-04 tablets by Heal th MG 24 hr 00:00: mouth 1 tablet 00 (one) time each day. Synjardy XR 2021-0 Yes 2{tbl} QD Take 2 UT 12.5-1000 3-04 tablets by Heal th MG 24 hr 00:00: mouth 1 tablet 00 (one) time each day. Synjardy XR 2021-0 Yes 2{tbl} QD Take 2 UT 12.5-1000 3-04 tablets by Heal th MG 24 hr 00:00: mouth 1 tablet 00 (one) time each day. Synjardy XR 2021-0 Yes 2{tbl} QD Take 2 UT 12.5-1000 3-04 tablets by Heal th MG 24 hr 00:00: mouth 1 tablet 00 (one) time each day. Synjardy XR 2021-0 Yes 2{tbl} QD Take 2 UT 12.5-1000 3-04 tablets by Heal th MG 24 hr 00:00: mouth 1 tablet 00 (one) time each day. Synjardy XR 2021-0 Yes 2{tbl} QD Take 2 UT 12.5-1000 3-04 tablets by Heal th MG 24 hr 00:00: mouth 1 tablet 00 (one) time each day. Synjardy XR 2021-0 Yes 2{tbl} QD Take 2 UT 12.5-1000 3-04 tablets by Heal th MG 24 hr 00:00: mouth 1 tablet 00 (one) time each day. Synjardy XR 1-0 Yes 2{tbl} QD Take 2 UT 12.5-1000 3-04 tablets by Heal th MG 24 hr 00:00: mouth 1 tablet 00 (one) time each day. Synjardy XR 2021-0 Yes 2{tbl} QD Take 2 UT 12.5-1000 3-04 tablets by Heal th MG 24 hr 00:00: mouth 1 tablet 00 (one) time each day. Vital Signs Vital Name Observation Time Observation Value Comments Source Systolic blood 2022-06-15 14:36:00 116 mm[Hg] Ghislaine Laboyybold - pressure External Diastolic blood 2022-06-15 14:36:00 58 mm[Hg] Kelse y Seybold - pressure External Heart rate 2022-06-15 14:36:00 93 /min Ghislaine gossbold - External Body temperature 2022-06-15 14:36:00 35.78 Lissette Gabriella goss Seybold - External Respiratory rate 2022-06-15 14:36:00 16 /min Gabriella goss Seybold - External Body height 2022-06-15 14:36:00 177.8 cm Ghislaine gossbold - External Body weight 2022-06-15 14:36:00 78.019 kg Ghislaine gossbold - External BMI 2022-06-15 14:36:00 24.68 kg/m2 Ghislaine Weldon eybold - External Body height 2021-02-23 15:16:00 177.8 cm [facility] 2021-02-23 15:16:00 80.74 kg [facility] BMI 2021-02-23 15:16:00 25.54 kg/m2 [facility] height 2021-01-22 13:29:00 177.8 cm [facility] weight 2021-01-22 13:29:00 79.379 kg [facility] BMI 2021-01-22 13:29:00 25.11 kg/m2 [facility] height 2021-01-12 19:03:00 177.8 cm [facility] weight 2021-01-12 19:03:00 74.844 kg [facility] BMI 2021-01-12 19:03:00 23.68 kg/m2 [facility] Weight 2021-01-22 15:00:00 [facility] Height 2021-01-22 15:00:00 [facility] Temperature Oral (F) 2021-01-22 15:00:00 98.5 F [facility] Heart Rate 2021-01-22 15:00:00 [facility] Diastolic (mm Hg) 2021-01-22 15:00:00 [facility] Systolic (mm Hg) 2021-01-22 15:00:00 [facility] Weight 2020-12-25 16:00:00 [facility] Height 2020-12-25 16:00:00 [facility] Temperature Oral (F) 2020-12-25 16:00:00 98.7 F [facility] Heart Rate 2020-12-25 16:00:00 [facility] Diastolic (mm Hg) 2020-12-25 16:00:00 [facility] Systolic (mm Hg) 2020-12-25 16:00:00 Neymar rial[facility] Procedures Procedure Date / Time Performed Performing Clinician [facility] e XR HIP 2 OR 3 VW LEFT 2021-03-20 14:08:17 August Huntley IN Hea lth XR HIP 2 OR 3 VW LEFT 2021-01-12 19:17:54 Saeed Mccartney IN He alth ANKLE BRACHIAL INDEX 2020-11-05 22:38:[facility] 2020-11-05 22:37:48 Carleen [facility] LOWER EXTREMITY BILATERAL Plan of Care Planned Activity Planned Date Details Comments Source Future Scheduled 2023-05-14 Screening for [facility] Test 20:03:06 malignant neoplasm of colon (procedure) [code = 894146586] Future Scheduled 2023-05-14 Screening for [facility] Test 20:03:06 malignant neoplasm of colon (procedure) [code = 736106364] Future Scheduled 2023-05-14 Screening for [facility] Test 20:03:06 malignant neoplasm of colon (procedure) [code = 433031981] Future Scheduled 2023-05-14 Hepatitis C screening [facility] Test 20:03:06 (procedure) [code = 028142477] Future Scheduled 2023-05-14 Screening for [facility] Test 20:03:06 malignant neoplasm of colon (procedure) [code = 563328773] Future Scheduled 2023-05-14 Screening for [facility] Test 20:03:06 malignant neoplasm of colon (procedure) [code = 542735693] Future Scheduled 2023-05-14 SHINGLES VACCINES (1 [facility] Test 20:03:06 of 2) [code = SHINGLES VACCINES (1 of 2)] Future Scheduled 2023-05-14 65+ PNEUMOCOCCAL [facility] Test 20:03:06 VACCINE (1 - PCV) [code = 65+ PNEUMOCOCCAL VACCINE (1 - PCV)] Future Scheduled 2023-05-14 COVID-19 VACCINE (3 - [facility] Test 20:03:06 ) [code = COVID-19 VACCINE (3 - season)] Future Scheduled 2023-05-14 INFLUENZA VACCINE (#1) [facility] Test 20:03:06 [code = INFLUENZA VACCINE (#1)] Future Scheduled 2023-05-14 Screening for [facility] Test 20:03:06 malignant neoplasm of colon (procedure) [code = 079567947] Future Scheduled 2023-05-14 Screening for [facility] Test 20:03:06 malignant neoplasm of colon (procedure) [code = 369142906] Future Scheduled 2023-05-14 Screening for [facility] Test 20:03:06 malignant neoplasm of colon (procedure) [code = 874109849] Future Scheduled 2023-05-14 Hepatitis C screening [facility] Test 20:03:06 (procedure) [code = 202875605] Future Scheduled 2023-05-14 Screening for [facility] Test 20:03:06 malignant neoplasm of colon (procedure) [code = 120129076] Future Scheduled 2023-05-14 Screening for [facility] Test 20:03:06 malignant neoplasm of colon (procedure) [code = 864936111] Future Scheduled 2023-05-14 [facility] 20:03:06 of 2) [code = SHINGLES VACCINES (1 of 2)] Future Scheduled 2023-05-14 65+ PNEUMOCOCCAL [facility] Test 20:03:06 VACCINE (1 - PCV) [code = 65+ PNEUMOCOCCAL VACCINE (1 - PCV)] Future Scheduled 2023-05-14 COVID-19 VACCINE (3 - [facility] Test 20:03:06 ) [code = COVID-19 VACCINE (3 - season)] Future Scheduled 2023-05-14 INFLUENZA VACCINE (#1) [facility] Test 20:03:06 [code = INFLUENZA VACCINE (#1)] Future Scheduled 2023-05-14 Hepatitis C screening [facility] Test 20:03:06 (procedure) [code = 616679625] Future Scheduled 2023-05-14 Screening for [facility] Test 20:03:06 malignant neoplasm of colon (procedure) [code = 531665847] Future Scheduled 2023-05-14 Screening for [facility] Test 20:03:06 malignant neoplasm of colon (procedure) [code = 059307750] Future Scheduled 2023-05-14 [facility]INES ([facility] Test 20:03:06 of 2) [code = SHINGLES VACCINES (1 of 2)] Future Scheduled 2023-05-14 65+ PNEUMOCOCCAL [facility] Test 20:03:06 VACCINE (1 - PCV) [code = 65+ PNEUMOCOCCAL VACCINE (1 - PCV)] Future Scheduled 2023-05-14 COVID-19 VACCINE (3 - [facility] Test 20:03:06 season) [code = COVID-19 VACCINE (3 - season)] Future Scheduled 2023-05-14 INFLUENZA VACCINE (#1) [facility] Test 20:03:06 [code = INFLUENZA VACCINE (#1)] Future Scheduled 2023-05-14 Screening for [facility] Test 20:03:06 malignant neoplasm of colon (procedure) [code = 604153467] Future Scheduled 2023-05-14 Screening for [facility] Test 20:03:06 malignant neoplasm of colon (procedure) [code = 601751459] Future Scheduled 2023-05-14 Screening for [facility] Test 20:03:06 malignant neoplasm of colon (procedure) [code = 273340480] Future Scheduled 2023-04-30 Screening for [facility] Test 23:04:33 malignant neoplasm of colon (procedure) [code = 919880854] Future Scheduled 2023-04-30 Screening for [facility] Test 23:04:33 malignant neoplasm of colon (procedure) [code = 986984012] Future Scheduled 2023-04-30 Screening for [facility] Test 23:04:33 malignant neoplasm of colon (procedure) [code = 298813782] Future Scheduled 2023-04-30 Hepatitis C screening [facility] Test 23:04:33 (procedure) [code = 300031774] Future Scheduled 2023-04-30 Screening for [facility] Test 23:04:33 malignant neoplasm of colon (procedure) [code = 052359998] Future Scheduled 2023-04-30 Screening for [facility] Test 23:04:33 malignant neoplasm of colon (procedure) [code = 148792064] Future Scheduled 2023-04-30 SHINGLES VACCINES (1 [facility] Test 23:04:33 of 2) [code = SHINGLES VACCINES (1 of 2)] Future Scheduled 2023-04-30 RSV VACCINES > 60 YR [facility] Test 23:04:33 (1 - 1-dose 60+ series) [code = RSV VACCINES > 60 YR (1 - 1-dose 60+ series)] Future Scheduled 2023-04-30 65+ [facility]AL [facility] Test 23:04:33 VACCINE (1 - PCV) [code = 65+ PNEUMOCOCCAL VACCINE (1 - PCV)] Future Scheduled 2023-04-30 COVID-19 VACCINE (3 - [facility] Test 23:04:33 season) [code = COVID-19 VACCINE (3 - season)] Future Scheduled 2023-04-30 INFLUENZA VACCINE (#1) [facility] Test 23:04:33 [code = INFLUENZA VACCINE (#1)] Future Scheduled 2022-07-22 Hepatitis C screening [facility] Test 13:23:35 (procedure) [code = 901558859] Future Scheduled 2022-07-22 COLONOSCOPY SCREENING [facility] Test 13:23:35 [code = COLONOSCOPY SCREENING] Future Scheduled 2022-07-22 SHINGLES VACCINES (1 [facility] Test 13:23:35 of 2) [code = SHINGLES VACCINES (1 of 2)] Future Scheduled 2022-07-22 COVID-19 VACCINE (3 - [facility] Test 13:23:35 Booster for Moderna series) [code = COVID-19 VACCINE (3 - Booster for Moderna series)] Future Scheduled 2022-07-22 65+ [facility]OCOCCAL [facility] Test 13:23:35 VACCINE (1 - PCV) [code = 65+ PNEUMOCOCCAL VACCINE (1 - PCV)] Future Scheduled 2022-07-22 INFLUENZA VACCINE [facility] Test 13:23:35 [code = INFLUENZA VACCINE] Future Scheduled 2022-07-22 Hepatitis C screening [facility] Test 13:23:35 (procedure) [code = 767121245] Future Scheduled 2022-07-22 COLONOSCOPY SCREENING [facility] Test 13:23:35 [code = COLONOSCOPY SCREENING] Future Scheduled 2022-07-22 SHINGLES VACCINES (1 Met [facility] Test 13:23:35 of 2) [code = SHINGLES VACCINES (1 of 2)] Future Scheduled 2022-07-22 COVID-19 VACCINE (3 - [facility] Test 13:23:35 Booster for Moderna series) [code = COVID-19 VACCINE (3 - Booster for Moderna series)] Future Scheduled 2022-07-22 65+ [facility]OCOCCAL [facility] Test 13:23:35 VACCINE (1 - PCV) [code = 65+ PNEUMOCOCCAL VACCINE (1 - PCV)] Future Scheduled 2022-07-22 [facility]ZA VACCINE [facility] Test 13:23:35 [code = INFLUENZA VACCINE] Future Scheduled 2022-07-22 [facility] C [facility] Test 13:23:35 (procedure) [code = 856192048] Future Scheduled 2022-07-22 COLONOSCOPY SCREENING [facility] Test 13:23:35 [code = COLONOSCOPY SCREENING] Future Scheduled 2022-07-22 SHINGLES VACCINES (1 Met [facility] Test 13:23:35 of 2) [code = SHINGLES VACCINES (1 of 2)] Future Scheduled 2022-07-22 COVID-19 VACCINE (3 - [facility] Test 13:23:35 Booster for Moderna series) [code = COVID-19 VACCINE (3 - Booster for Moderna series)] Future Scheduled 2022-07-22 65+ [facility]OCOCCAL [facility] Test 13:23:35 VACCINE (1 - PCV) [code = 65+ PNEUMOCOCCAL VACCINE (1 - PCV)] Future Scheduled 2022-07-22 [facility]FLUENZA VACCINE [facility] Test 13:23:35 [code = INFLUENZA VACCINE] Future Scheduled 2022-07-21 Hepatitis C screening [facility] Test 17:49:06 (procedure) [code = 627495165] Future Scheduled 2022-07-21 COLONOSCOPY SCREENING [facility] Test 17:49:06 [code = COLONOSCOPY SCREENING] Future Scheduled 2022-07-21 SHINGLES VACCINES (1 Met [facility] Test 17:49:06 of 2) [code = SHINGLES VACCINES (1 of 2)] Future Scheduled 2022-07-21 COVID-19 VACCINE (3 - [facility] Test 17:49:06 Booster for Moderna series) [code = COVID-19 VACCINE (3 - Booster for Moderna series)] Future Scheduled 2022-07-21 65+ [facility]OCOCCAL [facility] Test 17:49:06 VACCINE (1 - PCV) [code = 65+ PNEUMOCOCCAL VACCINE (1 - PCV)] Future Scheduled 2022-07-21 [facility]ZA [facility]ACCINE [facility] Test 17:49:06 [code = INFLUENZA VACCINE] Future Scheduled Hepatitis C screening [facility] Test (procedure) [code = 407198915] Future Scheduled COLONOSCOPY SCREENING [facility] Test [code = COLONOSCOPY SCREENING] Future Scheduled SHINGLES VACCINES (#1) [facility] Test [code = SHINGLES VACCINES (#1)] Future Scheduled 65+ PNEUMOCOCCAL [facility] Test VACCINE (1 of 1 - PPSV23) [code = 65+ PNEUMOCOCCAL VACCINE (1 of 1 - PPSV23)] Future Scheduled INFLUENZA VACCINE [facility] Test [code = INFLUENZA VACCINE] Encounters Start End Encounter Admission Attending Care Care Encounter Source Date/Time Date/Time Type Type Clinicians Facility Department ID 2023-06-15 Outpatient [id number] [id number] [facility]oria 17:48:58 CBFA-4679 FA-4679-BD2 BFA-4679- B l -AZ22-2G0 [id number] A76-9D2N88 [facility] [id number] 9673-11-22 Outpatient [id number] [id number]-[id number] 916B B305-A [facility] 04:10:17 I145-0FJ0 48-8CM6-Z6T 148-4DB2- A l -H0Q8-50W 2-87DWX567F 9T0-31XYV2 [facility] VO557S6JD 3DC 32A3DC 2023-05-24 Outpatient PR7YCOA0- LH2XVZN5-0N CC2C DFD9-7 [facility] 07:36:05 6S37-4L69 79-4L09-278 Z40-5A24- 8 l -8906-F5F 6-I9J9HR6FB 906-F5F6FE [facility] 0PB6ZF362 663 6HY984 2023-05-14 Outpatient [id number] D128 0ACC-9 [facility]oria 04:07:28 9ADD-4430 DD-4430-910 ADD-4430- 9 l -910B-454 B-498H3OYI5 10B-454D3D [place] P8KFK45V1 9A4 EF09A4 2022-08-02 Outpatient [id number] 21D6-C [facility] 18:12:24 CAD2-41BF D2-41BF-92E AD2-41BF- 9 l -81T1-9J9 7-8S48450TT 8Q0-0Q0350 [facility] 1330SX975 253 0QS555 2022-08-01 Outpatient [id number] 7ECE 02EE-1 [facility] 12:52:07 11BF-4FFD BF-4FFD-971 1BF-4FFD- 9 l -971E-DE9 E-SG4V3F38U 71E-DE9B3F [facility] H0Q04C584 963 60Q440 2022-07-22 Outpatient [id number] 5DKCQA04-GB 0CBD EC97-E [facility] 13:23:34 NT86-962Q 96-494C-A1F M50-240L- A l -Q8Z6-6ZU 1-7LO6NCN83 9M0-1GH1TJ [facility] 1MPG363K2 7C4 E817C4 2022-07-21 Outpatient [id number]- [id number] 58EB 9D9D-6 [facility] 17:49:06 603B-4F8E 3B-4J0V-2G3 03B-4F8E- 8 l -8B23-I5K 9-I8Z0W5769 A62-Q1K7Q5 [facility] 6D1749N36 A18 763A18 2022-06-15 Outpatient [id number] 4C77 91CA-5 [facility] 08:35:51 5511-411C 11-411C-A7B 511-411C- A l -U2UD-X31 D-R681VZ7NM 7BD-C103ED [facility] 9HH3WX7Y5 2B7 0AC2B7 2021-06-09 Magdalene FOX [facility] [id number] [place] [facility]03[facility] Outpatient [id number] [id number] 8CD1-F [facility] 13:27:27 O34Z-3L0A 8E-1X3N-340 28E-4E8B- 9 l -921B-568 B-035U83549 21B-568D40 [place] [id number] C47 655C47 2021-03-20 Outpatient [facility] [id number] [place] 09:00:49 Health 2021-02-11 Outpatient [facility] [id number] [place] 09:14:23 Health 2021-02-03 Outpatient ROMAIN, FB CAR 7502 MHFB 10:53:12 BERNARDINO 2021-01-30 Outpatient ROMAIN, [facility] [id number] [place] 01:06:45 BERNARDINO Ch[facility] 2021-01-12 Outpatient [facility] [id number] [place] 14:12:35 Health 2023-01-05 2023-01-05 Outpatient GHISLAINE VALDES [id number] [place]aine 00:00:00 00:00:00 ERICKA Seybol d 2022-12-22 2022-12-22 Outpatient GHISLAINE VALDES [id number] G[place]aine 00:00:00 00:00:00 ERICKA Seybol kade 2022-11-16 2022-11-16 Outpatient GHISLAINE VALDES [id number] Ghis[place]aine 00:00:00 00:00:00 ERICKA Seybol d 2022-10-14 2022-10-14 Outpatient GHISLAINE VALDES [id number] Ghis[place]aine 00:00:00 00:00:00 ERICKA Seybol d 2022-06-18 2022-06-18 Outpatient GHISLAINE VALDES [id number] [place]aine 00:00:00 00:00:00 ERICKA Seybol d 2022-06-17 2022-06-17 Outpatient GHISLAINE VALDES [id number] [place]aine 00:00:00 00:00:00 ERICKA Seybol d 2022-06-15 2022-06-15 Outpatient LAB90 GHISLAINE BRADFORD [id number] [place] 09:45:00 09:45:00 Seybol d 2022-06-15 2022-06-15 Outpatient GHISLAINE VALDES GHISLAINE [id number] [place]aine 08:30:00 08:30:00 ERICKA Seybol d 2022-06-07 2022-06-07 Outpatient AJITH VALDESCLYDE BRADFORD [id number] [place] 15:30:00 15:30:00 ERICKA Seybol d 2021-05-06 2021-05-06 Outpatient KYM [facility] [id number] [place] 00:00:00 00:00:00 XI [address] 2021-04-17 2021-04-17 Office JOSE MARIA Huntley [facility] 1.2.840.114 [id number] [place] 09:48:40 11:04:00 Visit August SUGAR 350.1.13.58 He alth [place] [address].7.[address] [id number] 2021-03-18 2021-04-16 Outpatient ABIODUN, BL BL 9603 BL 10:28:00 23:59:00 TORIN 2021-03-20 2021-03-20 Office JOSE MARIA Huntley [facility] 1.2.840.114 [id number] [place] 08:07:16 10:00:56 Visit August SUGAR 350.1.13.58 He alth [place] 9.2.7.2.[address] [id number] 2021-03-20 2021-03-20 Refill JOSE MARIA Huntley ORTHO 1.2.590.700 [id number] [place] 00:00:00 00:00:00 August SUGAR 350.1.13.58 He alth LAND 9.2.7.2.686 [id number] 2021-03-10 2021-03-10 Outpatient DEBBY HERMINIO [facility] [id number] 16:53:00 20:25:00 [facility] 2021-02-05 2021-03-06 Outpatient ZARINA RASCON MHBL [id number] MHBL 14:28:00 23:59:00 TORIN 2021-02-23 2021-02-23 Office JOSE MARIA Fox ORTHO 1.2.840.114 [id number] [place] 09:06:13 11:18:34 Visit Judson SUGAR 350.1.13.58 He alth LAND 9.2.7.2.686 [id number] 2021-02-12 2021-02-12 Office JOSE MARIA Heller [facility] 1.2.840.114 [id number] [place] 08:52:04 09:07:04 Visit Bruce MUSA 350.1.13.58 [facility] MEDICAL 9.2.7.2.[address] [id number] 2021-02-02 2021-02-02 EXT [facility] OP Romain, EXT MSRDP 1.2.840.11 4 [id number] [place] 00:00:00 00:00:00 [facility] LOCATION 350.1.13.58 Health 9.2.7.2.686 [id number] 2021-02-02 2021-02-02 EXT [facility] OP Romain, EXT MSRDP 1.2.840.11 4 [id number] [place] 00:00:00 00:00:00 [facility] LOCATION 350.1.13.58 Health 9.2.7.2.686 [id number] 2020-12-31 2021-01-29 Outpatient SLATE, BL MHBL 9601 MHBL 10:06:00 23:59:00 TORIN 2021-01-28 2021-01-28 Outpatient ROMAIN, [facility] CAR 7501 [facility] 09:00:00 23:59:00 VIJAIGANESH 2021-01-28 2021-01-28 Outpatient Wen Wen [id number] [facility]inic 10:22:00 10:22:00 [facility] 2021-01-28 2021-01-28 EXT [facility] OP Romain, EXT MSRDP 1.2.840.11 4 [id number] [place] 00:00:00 00:00:00 [facility] LOCATION 350.1.13.58 Health 9.2.7.2.686 [id number] 2021-01-26 2021-01-26 Outpatient ROMAIN, [facility] CAR 7500 [facility] 12:59:00 23:59:00 BERNARDINO 2021-01-22 2021-01-22 Outpatient Wen Wen [id number] eClinic 11:15:00 11:15:00 [facility] 2021-01-22 2021-01-22 Outpatient Wen Wen [id number] eClinic 10:00:00 10:00:00 [facility] 2021-01-22 2021-01-22 Office JOSE MARIA Heller [facility] 1.2.840.114 [id number] [place] 08:05:50 08:20:50 Visit Bruce MUSA 350.1.13.58 H [facility] 9.2.7.2.[address] 4 [id number] 2021-01-12 2021-01-12 Office JOSE MARIA Mccartney [facility] 1.2.840.114 [id number] [place] 13:40:54 17:19:04 Visit Saeed MUSA 350.1.13.58 H [facility] 9.2.7.2.686 [address] 0 [id number] 2020-12-28 2020-12-28 Outpatient Wen Wen [id number] eClinic 19:25:00 19:25:00 [facility] 2020-12-28 2020-12-28 Outpatient Wen Wen [id number] eClinic 15:19:00 15:19:00 [facility] 2020-12-25 2020-12-25 Outpatient Wen Wen [id number] eClinic 11:00:00 11:00:00 [facility] 2020-11-20 2020-12-19 Outpatient SLATE, MHBL MHBL 9600 MHBL 12:39:00 23:59:00 TORIN 2020-11-05 2020-11-05 [facility], 1.2.840.1 [id number] Methodi 15:08:10 23:59:00 Encounter Joann Rivera 98074.1.1 539 s t 3.430.2.7 Hospit a .3.340366 l .8 2020-11-05 2020-11-05 [facility], 1.2.840.1 [id number] Methodi 15:04:31 15:07:00 Encounter Joann Rodriguez. 75308.1.1 538 s t 3.430.2.7 Hospit a .3.398515 l .8 2020-11-05 2020-11-05 Travel 1.2.840.1 1.2.222.551 [id number] Methodi 00:00:00 00:00:[address] 3.430.2.7 0.2.7.3.698 Ho spita .3.429109 084.8 l .8 2020-11-05 2020-11-05 Transcribe Carleen, 1.2.840.1 [id number] Methodi 00:00:00 00:00:00 Orders Joann Rodriguez. 22966.1.[address] 3.430.2.7 Hospit a .3.381044 l .8 2020-11-05 2020-11-05 Transcribe Carleen, 1.2.840.1 [id number] Methodi 00:00:00 00:00:00 Orders Joann Rodriguez. 00512.1.[address] 3.430.2.7 Hospit a .3.484980 l .8 Results Test Description Test Time Test Results Result Source Comments Comments XR hip left 2 or 3 views left hip reveal [facility] 3 views 3 left total hip 15:01:01 replacement is well sized and seated no evidence of fracture or dislocation leg lengths appear equal. XR hip left 2 or 3 views left hip reveal [facility] 3 views 3 left total hip 15:01:01 replacement is well sized and seated no evidence of fracture or dislocation leg lengths appear equal. XR hip left 2 or 2020-12-17 2 views of the left hip [facility] 3 views 8 taken in clinic today 20:33:22 reviewed by me. 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 ?Moderate to severe arthritic changes of the right side as well. 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 Technique: Upper and lower extremity systolic arterial pressure measurements were obtained and bilateral ankle-brachial indices and toe-brachial indices were calculated. Ankle and toe volume plethysmography/photopl ethysmography/pulse volume recordings (PVR) were obtained for evaluation. Bilateral lower extremity arterial Doppler sonography was obtained concomitantly and reported separately. __ Impression: Bilateral ankle-brachial indices (GONZÁLEZ) and toe-brachial indices were calculated as follows: Right GONZÁLEZ: Measured systolic brachial, posterior tibial, and dorsalis pedis arterial pressures were 117, 35, 44, mmHg, respectively. Right digital/toe arterial pressure could not be calculated due to vessel noncompressibility; right toe-brachial index could not be calculated. The calculated ankle-brachial index (posterior tibial) is 0.29 and the calculated ankle-brachial index (dorsalis pedis) is 0.37. These results and the associated right-sided pulse volume recordings/photoplethys mography are consistent with severe peripheral artery disease. Left GONZÁLEZ: Measured systolic brachial, posterior tibial, dorsalis pedis, and digital/toe arterial pressures were 119, 157, 82, and 141 mmHg, respectively. The calculated ankle-brachial index (posterior tibial) is 1.32 and the calculated ankle-brachial index (dorsalis pedis) is 0.69; the calculated toe-brachial index is 1.18. These results and the associated left-sided pulse volume recordings/photoplethys mography suggest mild to moderate peripheral artery disease; please correlate with the findings of bilateral lower extremity arterial Doppler sonography. __ GONZÁLEZ Guidelines: >1.4: Calcified Vessel0.9-1.4: Normal0.7-0.89: Mild PAD0.51-0.69: Moderate PAD<0.5: Severe PAD TBI Guidelines:>0.6: Normal0.34-0.59: Mild PAD0.12-0.34: Moderate PAD<0.11: Severe PAD [facility]-[id number] Interface, Radiology Results Incoming - 11/05/2020 6:36 PM CDT Examination: US ANKLE BRACHIAL INDEX COMPLETEClinical history: "I70.203 Unspecified atherosclerosis of [place] arteries of extremities bilateral legs, I70.203" Comparison: There are no prior studies for comparison.Technique: Upper and lower extremity systolic arterial pressure measurements were obtained and bilateral ankle-brachial indices and toe-brachial indices were calculated. Ankle and toe volume plethysmography/photopl ethysmography/pulse volume recordings (PVR) were obtained for evaluation.Bilateral lower extremity arterial Doppler sonography was obtained concomitantly and reported separately. Impression : Bilateral ankle-brachial indices (GONZÁLEZ) and toe-brachial indices were calculated as follows:Right GONZÁLEZ: Measured systolic brachial, posterior tibial, and dorsalis pedis arterial pressures were 117, 35, 44, mmHg, respectively. Right digital/toe arterial pressure could not be calculated due to vessel noncompressibility; right toe-brachial index could not be calculated. The calculated ankle-brachial index (posterior tibial) is 0.29 and the calculated ankle-brachial index (dorsalis pedis) is 0.37. These results and the associated right-sided pulse volume recordings/photoplethys mography are consistent with severe peripheral artery disease.Left GONZÁLEZ: Measured systolic brachial, posterior tibial, dorsalis pedis, and digital/toe arterial pressures were 119, 157, 82, and 141 mmHg, respectively. The calculated ankle-brachial index (posterior tibial) is 1.32 and the calculated ankle-brachial index (dorsalis pedis) is 0.69; the calculated toe-brachial index is 1.18. These results and the associated left-sided pulse volume recordings/photoplethys mography suggest mild to moderate peripheral artery disease; please correlate with the findings of bilateral lower extremity arterial Doppler sonography. ABI Guidelines:>1.4: Calcified Vessel0.9-1.4: Normal0.7-0.89: Mild PAD0.51-0.69: Moderate PAD<0.5: Severe PADTBI Guidelines:>0.6: Normal0.34-0.59: Mild PAD0.12-0.34: Moderate PAD<0.11: Severe [id number] Us duplex 2020-10-17 Examination: US DUPLEX M [facility]ist arterial lower 1 [facility] extremity 23:28:54 EXTREMITY BILATERAL Clinical history: "I. Unspecified atherosclerosis of [place] arteries of extremities bilateral legs, I70." Comparison: There are no prior studies for comparison. Technique: The bilateral common femoral, femoral, popliteal, posterior tibial, anterior tibial, and dorsalis pedis arteries were evaluated using real-time B-mode grayscale, Doppler spectral analysis, and Doppler color flow imaging. Bilateral ankle-brachial indices were obtained concomitantly and reported separately. __ IMPRESSION: Right lower extremity: Within the named arteries of the right lower extremity, there is evidence of mild to moderate and diffuse atherosclerosis without a focal, hemodynamically significant stenosis identified. If a more definitive evaluation is required, please consider catheter-directed arteriography. Left lower extremity: Within the named arteries of the left lower extremity, there is evidence of mild to moderate and diffuse atherosclerosis without a focal, hemodynamically significant stenosis identified. If a more definitive evaluation is required, please consider catheter-directed arteriography. Findings: Peak systolic arterial velocities are as follows (in cm/s): Right leg: Common femoral: 84 Femoral: Proximal: 67Mid: 86Distal: 102 Popliteal:Proximal: 76Mid: 55Distal: 25 Posterior tibial:Proximal: 53Mid: 26Distal: 22 Anterior tibial:Proximal: 19Mid: 39Distal: 19 Dorsalis pedis: 64 Right leg, arterial DOPPLER WAVEFORMS: Common femoral: Triphasic Femoral: Proximal: TriphasicMid: TriphasicDistal: Triphasic Popliteal:Proximal: BiphasicMid: MonophasicDistal: Monophasic Posterior tibial:Proximal: MonophasicMid: MonophasicDistal: Monophasic Anterior tibial:Proximal: MonophasicMid: MonophasicDistal: Monophasic Dorsalis pedis: Monophasic Left leg: Common femoral: 102 Femoral:Proximal: 55Mid: 78Distal: 107 Popliteal:Proximal: 118Mid: 78Distal: 91 Posterior tibial:Proximal: 38Mid: 33Distal: 46 Anterior tibial:Proximal: 93Mid: 45Distal: 41 Dorsalis pedis: 37 Left leg, arterial DOPPLER WAVEFORMS: Common femoral: Triphasic Femoral: Proximal: TriphasicMid: TriphasicDistal: Triphasic Popliteal:Proximal: TriphasicMid: TriphasicDistal: Triphasic Posterior tibial:Proximal: BiphasicMid: MonophasicDistal: Monophasic Anterior tibial:Proximal: TriphasicMid: MonophasicDistal: Monophasic Dorsalis pedis: Monophasic __ Thank you for allowing us to participate in the care of your patient. __ [facility]-[id number] [facility], Radiology Results Incoming - 11/05/2020 6:31 PM CDT Examination: US DUPLEX ARTERIAL LOWER EXTREMITY BILATERALClinical history: "I70.203 Unspecified atherosclerosis of [place] arteries of extremities bilateral legs, I70.203" Comparison: There are no prior studies for comparison.Technique: The bilateral common femoral, femoral, popliteal, posterior tibial, anterior tibial, and dorsalis pedis arteries were evaluated using real-time B-mode grayscale, Doppler spectral analysis, and Doppler color flow imaging. Bilateral ankle-brachial indices were obtained concomitantly and reported separately. IMPRESSION :Right lower extremity: Within the named arteries of the right lower extremity, there is evidence of mild to moderate and diffuse atherosclerosis without a focal, hemodynamically significant stenosis identified. If a more definitive evaluation is required, please consider catheter-directed arteriography.Left lower extremity: Within the named arteries of the left lower extremity, there is evidence of mild to moderate and diffuse atherosclerosis without a focal, hemodynamically significant stenosis identified. If a more definitive evaluation is required, please consider catheter-directed arteriography.Findings: Peak systolic arterial velocities are as follows (in cm/s):Right leg: Common femoral: 84Femoral: Proximal: 67Mid: 86Distal: 102Popliteal:Proximal: 76Mid: 55Distal: 25Posterior tibial:Proximal: 53Mid: 26Distal: 22Anterior tibial:Proximal: 19Mid: 39Distal: 19Dorsalis pedis: 64 Right leg, arterial DOPPLER WAVEFORMS:Common femoral: TriphasicFemoral: Proximal: TriphasicMid: TriphasicDistal: TriphasicPopliteal:Prox imal: BiphasicMid: MonophasicDistal: MonophasicPosterior tibial:Proximal: MonophasicMid: MonophasicDistal: MonophasicAnterior tibial:Proximal: MonophasicMid: MonophasicDistal: MonophasicDorsalis pedis: MonophasicLeft leg:Common femoral: 102Femoral:Proximal: 55Mid: 78Distal: 107Popliteal:Proximal: 118Mid: 78Distal: 91Posterior tibial:Proximal: 38Mid: 33Distal: 46 Anterior tibial:Proximal: 93Mid: 45Distal: 41 Dorsalis pedis: 37 Left leg, arterial DOPPLER WAVEFORMS:Common femoral: TriphasicFemoral: Proximal: TriphasicMid: TriphasicDistal: TriphasicPopliteal:Prox imal: TriphasicMid: TriphasicDistal: TriphasicPosterior tibial:Proximal: BiphasicMid: MonophasicDistal: MonophasicAnterior tibial:Proximal: TriphasicMid: MonophasicDistal: MonophasicDorsalis pedis: Monophasic Thank you for allowing us to participate in the care of your patient. __[facility]-[id number]
[2023-06-15 18:33] LABS: Absolute Lymphocytes (CBC) 1.1 K/uL (0.7-4.9); Hematocrit 38.7 % (39.6-49.0); Lymphocytes % 21.6 % (15.3-44.8); MCV 87.9 fL (80-100); MPV 8.5 fL (7.6-11.3); Platelets 187 thou/uL (152-406); RBC Red Blood Cell Count 4.41 M/uL (4.33-5.43)
[2023-06-15 18:40] LABS: Protime INR 1.1
--- NOTE | 2023-06-15 18:51 | RAD REPORT ---
EXAM DESCRIPTION: Adri Single View06/15/2023 6:28 pm CLINICAL HISTORY: COUGH COMPARISON: No comparisons TECHNIQUE: Portable AP view of the chest. FINDINGS: The lungs are clear. Left basilar atelectasis. No pneumothorax or effusion. The cardiomed iastinal contours are unremarkable. IMPRESSION: No acute cardiopulmonary process.
[2023-06-15 19:29] LABS: Albumin 2.8 g/dL (3.4-5.0); Bilirubin Direct 0.1 mg/dL (0-0.2); Bilirubin Indirect, Calculated 0.2 mg/dL (0.2-0.8); Bilirubin Total 0.3 mg/dL (0.2-1.0); Magnesium 2.2 mg/dL (1.6-2.4); Potassium 4.2 mEq/L (3.5-5.1); Protein, Total 5.7 g/dL (6.4-8.2)
[2023-06-15 19:35] LABS: Troponin High Sensitivity 134.1 pg/mL (<58.9)
[2023-06-15 19:49] LABS: Specific Gravity 1.028 (1.005-1.030); Urine Bacteria <20 /HPF (<20); Urine Bilirubin NEGATIVE (Negative); Urine Blood Trace (Negative); Urine Clarity Extremely Turbid (Clear); Urine Color Light-Yellow (Yellow); Urine Glucose 4+ (Over) (Negative); Urine Mucus Slight /HPF (None Seen); Urine Protein TRACE (Negative); Urine RBC 21-50 /HPF (None Seen); Urine Urobilinogen Normal (Normal)
--- NOTE | 2023-06-15 19:52 | RAD REPORT ---
EXAM DESCRIPTION: US - Extrem Venous W Compress Jimmy - 06/15/2023 7:05 pm CLINICAL HISTORY: Pain, swelling COMPARISON: None. TECHNIQUE: Real-time sonographic evaluation of the bilateral lower extremity deep venous systems was performed. FINDINGS: Normal compressibility, flow augmentation, phasic flow and spontaneous flow is identified in both the left and right lower extremity deep venous systems. No intraluminal filling defects seen. Bilateral non ruptured Ha cyst, measuring 4.8 cm on the right and 4.1 cm on the left. IMPRESSION: No evidence of DVT in either lower extremity.
[2023-06-15] MEDS ORDERED: CEFTRIAXONE 1000 MG/VIAL ONE (20:52)
[2023-06-15] MEDS ORDERED: ASPIRIN 81 MG CHEWABLE TABLET ONE (20:52)
[2023-06-15] MEDS ORDERED: FUROSEMIDE 40 MG/4 ML VIAL ONE (20:53)
--- NOTE | 2023-06-15 21:31 | ER ---
Nurse's Notes [facility] Name: Willy Yoo Age: 67 yrs Sex: Male : 1955 Arrival Date: 06/15/2023 Time: 17:45 Bed 6 Private MD: Diagnosis: UTI/ Urinary tract infection, site not specified;Combined systolic (congestive) and diastolic (congestive) heart failure;Type 2 diabetes mellitus with hyperglycemia;Edema, unspecified;Non ST elevation [place];Acute kidney failure, unspecified-on chronic;Synovial cyst of popliteal space [Ha], left knee;Synovial cyst of popliteal space [Ha], right knee Presentation: 06/15 17:58 Chief complaint: Patient states: Intermittent puneet feet swelling, pt states "it's worse aa5 when I stand for long periods of time". Pt also reports puneet leg pain. Coronavirus screen: At this time, the client does not indicate any symptoms associated with coronavirus-19. Ebola Screen: Patient denies travel to an Ebola-affected area in the 21 days before illness onset. Initial Sepsis Screen: Does the patient meet any 2 criteria? HR > 90 bpm. Does the patient have a suspected source of infection? No. Patient's initial sepsis screen is negative. Risk Assessment: Do you want to hurt yourself or someone else? Patient reports no desire to harm self or others. Onset of symptoms was 2022. 17:58 Acuity: JARAD 3 aa5 17:58 Method Of Arrival: Ambulatory aa5 Historical: - Allergies: 17:59 No Known Allergies; aa5 - PMHx: 17:58 High Cholesterol; aa5 17:59 Diabetes mellitus; aa5 - Immunization history:: Adult Immunizations unknown. - Social history:: Smoking status: Patient denies any tobacco usage or history of. - Family history:: not pertinent. Screenin:15 [facility] ED Fall Risk Assessment (Adult) History of falling in the last 3 months, mb9 including since admission No falls in past 3 months (0 pts) Confusion or Disorientation No (0 pts) Intoxicated or Sedated No (0 pts) Impaired Gait No (0 pts) Mobility Assist Device Used No (0 pt) Altered Elimination No (0 pt) Score/Fall Risk Level 0 - 2 = Low Risk Oriented to surroundings, Maintained a safe environment, Educated pt \\T\\ family on fall prevention, incl call for assistance when getting out of bed. Abuse screen: Denies threats or abuse. Nutritional screening: No deficits noted. Tuberculosis screening: No symptoms or risk factors identified. Assessment: 21:11 Reassessment:. General: Appears in no apparent distress. Behavior is calm, cooperative. mb9 Pain: Denies pain. Neuro: [place] Agitation-Sedation Scale (RASS): 0 - Alert and Calm Level of Consciousness is awake, alert, obeys commands, Oriented to person, place, time, situation, Appropriate for age. Cardiovascular: Patient's skin is warm and dry. Cardiovascular: Heart tones S1 S2 present JVD is present bilaterally Rhythm is regular. Respiratory: Airway is patent Respiratory effort is even, unlabored, Respiratory pattern is regular, symmetrical, Breath sounds are clear bilaterally. GI: Abdomen is flat, non-distended, Bowel sounds present X 4 quads. Abd is soft and non tender X 4 quads. : No signs and/or symptoms were reported regarding the genitourinary system. EENT: No signs and/or symptoms were reported regarding the EENT system. Derm: Skin is pink, warm \\T\\ dry. Musculoskeletal: Range of motion: intact in all extremities. Vital Signs: 17:58 BP 118 / 82; Pulse 85; Resp 18 S; Temp 98.5(TE); Pulse Ox 100% on R/A; Weight 79.38 kg aa5 (R); Height 5 ft. 10 in. (R); 06/16 02:16 BP 101 / 69; Pulse 69; Resp 17; Temp 98; Pulse Ox 99% on R/A; rv 06/15 17:58 Body Mass Index 25.11 (79.38 kg, 177.8 cm) aa5 [place] Coma Score: 02:16 Eye Response: spontaneous(4). Motor Response: obeys commands(6). Verbal Response: rv oriented(5). Total: 15. ED Course: 06/15 17:48 Patient arrived in ED. mg5 17:56 Ugo Jordan MD is Attending Physician. lakshmi 17:57 Arm band placed on. aa5 17:58 Triage completed. aa5 18:27 Basic Metabolic Panel Sent. bc6 18:27 CBC with Diff Sent. bc6 18:27 LFT's Sent. bc6 18:27 Magnesium Sent. bc6 18:27 NT PRO-BNP Sent. bc6 18:27 PT-INR Sent. bc6 18:27 Troponin HS Sent. bc6 18:27 Inserted saline lock: 20 gauge in left forearm, using aseptic technique. Blood bc6 collected. 18:30 XRAY Chest (1 view) In Process Unspecified. EDMS 19:07 US Extremity Venous W Compression Puneet In Process Unspecified. EDMS 19:19 Urinalysis w/ reflexes Sent. bc6 21:11 Aimee Guillermo RN is Primary Nurse. mb9 21:15 Placed in gown. Bed in low position. Call light in reach. Side rails up X 1. Client mb9 placed on continuous cardiac and pulse oximetry monitoring. NIBP monitoring applied. production stage manager on. 21:15 No provider procedures requiring assistance completed. mb9 21:24 CT Stone Protocol In Process Unspecified. EDMS 21:25 June Zavala MD is Hospitalizing Provider. [facility] 06/16 02:17 Provided Education on: metformin. rv 02:17 Patient admitted, IV remains in place. rv Administered Medications: 06/15 20:45 Drug: Aspirin PO Chewable Tablet 162 mg PO once Route: PO; 3 06/16 02:19 Follow up: Response: No adverse reaction rv 06/15 20:45 Drug: Furosemide IVP 40 mg IVP once; give over 2 minutes Route: IVP; Site: left forearm;lg3 06/16 02:19 Follow up: Response: No adverse reaction rv 06/15 20:45 Drug: Rocephin IV 1 grams IV at per protocol once; Given slow IV push per pharmacy lg3 instructions Route: IV; Rate: per protocol; Site: left forearm; 06/16 02:18 Follow up: IV Status: Completed infusion rv 06/15 21:32 Drug: Enoxaparin Sub-Q 1 mg/kg Sub-Q once Route: Sub-Q; Site: right lower abdomen; 9 06/16 02:18 Follow up: Response: No adverse reaction rv 06/15 21:32 Drug: Lisinopril PO 10 mg PO once Route: PO; 9 06/16 02:18 Follow up: Response: No adverse reaction rv Medication: 02:17 VIS not applicable for this client. rv Outcome: 06/15 21:30 Decision to Hospitalize by Provider. [facility] 11/30 02:17 Admitted to ER Hold. Please see [facility] for further documentation. rv Condition: good Instructed on the need for admit, 08:57 Patient left the ED. ph Signatures: Dispatcher [employer] Ugo Wild MD MD cha Calderon, Audri, RN RN aa5 Rhonda Melo RN RN ph Tuan Rico RN RN rv Susy Briggs RN RN 3 Aimee Guillermo RN RN 9 Millie Brandt [facility] Merline Michel 5 Corrections: (The following items were deleted from the chart) 06/15 17:59 17:58 Chief complaint: Patient states: Intermittent puneet feet swelling, pt states "it's aa5 worse when I stand for long periods of time" aa5 17:59 17:58 PMHx: Diabetes - NIDDM; aa5 aa5
--- NOTE | 2023-06-15 21:31 | EDPHYS ---
Physician Documentation [facility] Name: Willy Yoo Age: 67 yrs Sex: Male : 1955 Arrival Date: 06/15/2023 Time: 17:45 Bed 6 Private MD: ED Physician Ugo Jordan HPI: 06/15 21:15 This 67 yrs old Black Male presents to ER via Ambulatory with complaints of Feet lakshmi Swelling. 21:15 The patient presents with decreased range of motion, pain, swelling. The complaints lakshmi affect the right leg and left leg. Context: The problem was sustained at an unknown site, resulted from an unknown cause, the patient can fully bear weight. Modifying factors: The symptoms are alleviated by elevating leg, the symptoms are aggravated by weight bearing. Associated signs and symptoms: Pertinent positives: swelling. The patient has shortness of breath while exercising. The patient's shortness of breath is aggravated by coughing, supine position, is alleviated by rest, sitting up. le edema. Associated signs and symptoms: Pertinent positives: non-productive cough. Severity of symptoms: At their worst the symptoms were mild moderate in the emergency department the symptoms are unchanged. Historical: - Allergies: 17:59 No Known Allergies; aa5 - PMHx: 17:58 High Cholesterol; aa5 17:59 Diabetes mellitus; aa5 - Immunization history:: Adult Immunizations unknown. - Social history:: Smoking status: Patient denies any tobacco usage or history of. - Family history:: not pertinent. ROS: 21:15 Constitutional: Negative for fever, chills, and weight loss, Eyes: Negative for injury, lakshmi pain, redness, and discharge, ENT: Negative for injury, pain, and discharge, Neck: Negative for injury, pain, and swelling, Respiratory: Negative for shortness of breath, cough, wheezing, and pleuritic chest pain, Exam: 21:20 Constitutional: This is a well developed, well nourished patient who is awake, alert, lakshmi and in no acute distress. Head/Face: Normocephalic, atraumatic. Eyes: Pupils equal round and reactive to light, extra-ocular motions intact. Lids and lashes normal. Conjunctiva and sclera are non-icteric and not injected. Cornea within normal limits. Periorbital areas with no swelling, redness, or edema. ENT: Nares patent. No nasal discharge, no septal abnormalities noted. Tympanic membranes are normal and external auditory canals are clear. Oropharynx with no redness, swelling, or masses, exudates, or evidence of obstruction, uvula midline. Mucous membranes moist. Neck: Trachea midline, no thyromegaly or masses palpated, and no cervical lymphadenopathy. Supple, full range of motion without nuchal rigidity, or vertebral point tenderness. No Meningismus. Chest/axilla: Normal chest wall appearance and motion. Nontender with no deformity. No lesions are appreciated. Respiratory: Lungs have equal breath sounds bilaterally, clear to auscultation and percussion. No rales, rhonchi or wheezes noted. No increased work of breathing, no retractions or nasal flaring. Abdomen/GI: Soft, non-tender, with normal bowel sounds. No distension or tympany. No guarding or rebound. No evidence of tenderness throughout. Back: No spinal tenderness. No costovertebral tenderness. Full range of motion. Male : Normal genitalia with no discharge or lesions. Skin: Warm, dry with normal turgor. Normal color with no rashes, no lesions, and no evidence of cellulitis. Neuro: Awake and alert, GCS 15, oriented to person, place, time, and situation. Cranial nerves II-XII grossly intact. Motor strength 5/5 in all extremities. Sensory grossly intact. Cerebellar exam normal. Normal gait. Psych: Awake, alert, with orientation to person, place and time. Behavior, mood, and affect are within normal limits. 21:20 Cardiovascular: Rate: normal, actual rate is 85 bpm, Rhythm: regular, Pulses: Pulses are 4+ in bilateral radial, brachial, femoral, popliteal, posterior tibial and and dorsalis pedis arteries.. Heart sounds: normal, Edema: 3+ edema to level of left midcalf and right midcalf, JVD: is noted bilaterally, to 3 cm, 21:20 ECG was reviewed by the Attending Physician. Vital Signs: 17:58 BP 118 / 82; Pulse 85; Resp 18 S; Temp 98.5(TE); Pulse Ox 100% on R/A; Weight 79.38 kg aa5 (R); Height 5 ft. 10 in. (R); 06/16 02:16 BP 101 / 69; Pulse 69; Resp 17; Temp 98; Pulse Ox 99% on R/A; rv 06/15 17:58 Body Mass Index 25.11 (79.38 kg, 177.8 cm) aa5 Heidy Coma Score: 02:16 Eye Response: spontaneous(4). Motor Response: obeys commands(6). Verbal Response: rv oriented(5). Total: 15. MDM: 06/15 17:56 Patient medically screened. lakshmi 21:22 Differential diagnosis: Bronchitis CHF exacerbation, pneumonia, pulmonary edema, lakshmi reactive airway disease. Antibiotic administration: Rocephin and Zithromax given. Differential Diagnosis sepsis. Immunization status: Pneumococcal vaccine: within last 5 years. Influenza vaccine: Data reviewed: vital signs, nurses notes, lab test result(s), EKG, radiologic studies, CT scan, plain films. Consideration of Admission/Observation Patient was admitted/placed on observation. Escalation of care including admission/observation considered. I considered the following discharge prescriptions or medication management in the emergency department Medications were administered in the Emergency Department. See MAR. Independent interpretation of the following test(s) in the Emergency Department EKG: See my EKG interpretation above. Test considered but Not performed: Ultrasound no 2 d echo. Historians other than the Patient: Spouse/Significant Other: . Care significantly affected by the following chronic conditions: Diabetes, Hypertension, high cholesterol. Counseling: I had a detailed discussion with the patient and/or guardian regarding the historical points, exam findings, and any diagnostic results supporting the discharge/admit diagnosis, the presence of at least one elevated blood pressure reading (>120/80) during this emergency department visit, lab results, radiology results, the need for further work-up and treatment in the hospital. 06/15 18:00 Order name: Basic Metabolic Panel; Complete Time: 20:24 [facility] 06/15 18:00 Order name: CBC with Diff; Complete Time: 20:24 [facility] 06/15 18:00 Order name: LFT's; Complete Time: 20:24 [facility] 06/15 18:00 Order name: Magnesium; Complete Time: 20:24 [facility] 06/15 18:00 Order name: NT PRO-BNP; Complete Time: 20:24 [facility] 06/15 18:00 Order name: PT-INR; Complete Time: 20:24 [facility] 06/15 18:00 Order name: Troponin HS; Complete Time: 20:24 [facility] 06/15 18:00 Order name: Urinalysis w/ reflexes; Complete Time: 20:24 [facility] 06/15 19:53 Order name: Urine Culture [facility] 06/15 20:25 Order name: Urine Culture [facility] 06/15 22:35 Order name: Basic Metabolic Panel [facility] 06/15 22:35 Order name: Basic Metabolic Panel [facility] 06/15 22:35 Order name: CBC with Automated Diff [facility] 06/15 22:35 Order name: CBC with Automated Diff [facility] 06/16 08:15 Order name: Glucose, Ancillary Testing [facility] 06/16 08:18 Order name: Troponin High Sensitivity [facility] 06/15 18:00 Order name: XRAY Chest (1 view); Complete Time: 20:24 [facility] 06/15 18:00 Order name: US Extremity Venous W Compression Jimmy; Complete Time: 20:24 [facility] 06/15 20:28 Order name: CT Stone Protocol [facility] 06/15 18:00 Order name: EKG; Complete Time: 18:01 [facility] 06/15 18:00 Order name: Cardiac monitoring; Complete Time: 21:16 [facility] 06/15 18:00 Order name: EKG - Nurse/Tech; Complete Time: 18:34 [facility] 06/15 18:00 Order name: IV Saline Lock; Complete Time: 18:26 [facility] 06/15 18:00 Order name: Labs collected and sent; Complete Time: 18:26 [facility] 06/15 18:00 Order name: O2 Per Protocol; Complete Time: 21:16 [facility] 06/15 18:00 Order name: O2 Sat Monitoring; Complete Time: 21:16 [facility] EC:20 Rate is 79 beats/min. Rhythm is regular. QRS [place] is Normal. NM interval is normal. QRS lakshmi interval is normal. QT interval is normal. No Q waves. T waves are Inverted in leads II, III, aVF, V5, V6. No ST changes noted. Clinical impression: NSR w/ Non-specific ST/T Changes. Interpreted by me. Reviewed by me. Administered Medications: 20:45 Drug: Aspirin PO Chewable Tablet 162 mg PO once Route: PO; [facility] 06/16 02:19 Follow up: Response: No adverse reaction 06/15 20:45 Drug: Furosemide IVP 40 mg IVP once; give over 2 minutes Route: IVP; Site: left forearm;[facility] 06/16 02:19 Follow up: Response: No adverse reaction 06/15 20:45 Drug: Rocephin IV 1 grams IV at per protocol once; Given slow IV push per pharmacy lg3 instructions Route: IV; Rate: per protocol; Site: left forearm; 06/16 02:18 Follow up: IV Status: Completed infusion rv 06/15 21:32 Drug: Enoxaparin Sub-Q 1 mg/kg Sub-Q once Route: Sub-Q; Site: right lower abdomen; 9 06/16 02:18 Follow up: Response: No adverse reaction rv 06/15 21:32 Drug: Lisinopril PO 10 mg PO once Route: PO; 9 06/16 02:18 Follow up: Response: No adverse reaction rv Disposition Summary: 06/15/23 21:30 Hospitalization Ordered Notes: Hospitalization Status: Observation lakshmi Provider: June Zavala cha Condition: Fair lakshmi Problem: new lakshmi Symptoms: have improved lakshmi Bed/Room Type: Standard lakshmi Location: Telemetry/MedSurg (observation)(06/16/23 08:16) em1 Room Assignment: 429(06/16/23 08:16) em1 Diagnosis - UTI/ Urinary tract infection, site not specified lakshmi - Combined systolic (congestive) and diastolic (congestive) heart failure lakshmi - Type 2 diabetes mellitus with hyperglycemia lakshmi - Edema, unspecified lakshmi - Non ST elevation HI lakshmi - Acute kidney failure, unspecified - on chronic lakshmi - Synovial cyst of popliteal space [Ha], left knee lakshmi - Synovial cyst of popliteal space [Ha], right knee lakshmi Forms: - Medication Reconciliation Form lakshmi - SBAR form lakshmi - Leadership Thank You Letter lakshmi Signatures: Dispatcher [employer] Ugo Mistry MD MD cha Martinez, Eric em1 Angelina Lakhani, RN RN aa5 Susy Briggs RN RN lg3 Aimee Guillermo RN RN mb9 Tuan Rico RN rv Corrections: (The following items were deleted from the chart) 06/15 17:59 17:58 PMHx: Diabetes - NIDDM; gertrudis caba 06/16 04:05 06/15 21:30 Telemetry/MedSurg (observation) [place] [id number] 06/16 04:05 06/15 21:30 [place] [id number] 06/16 08:16 04:05 [facility] ER HOLD lg3 em1 08:16 04:05 ERHOLD- lg3 em1
[2023-06-15] MEDS ORDERED: ATORVASTATIN 20 MG TAB ONE (21:33)
[2023-06-15] MEDS ORDERED: lisinopriL 10 MG TAB ONE (21:33)
[2023-06-15] MEDS ORDERED: ENOXAPARIN 80 MG/0.8 ML SQ ONE (21:33)
--- NOTE | 2023-06-15 22:22 | RAD REPORT ---
EXAM DESCRIPTION: CT - Stone Protocol - 06/15/2023 9:22 pm CLINICAL HISTORY: FLANK PAIN COMPARISON: No comparisons TECHNIQUE: Thin cut axial CT imaging of the abdomen and pelvis was performed without IV contrast. Mu ltiplanar reformats were generated and reviewed. All CT scans are performed using dose optimization technique as appropriate and may include automated exposure control or mA/KV adjustment according to patient size. FINDINGS: Small layering left pleural effusion. The liver, spleen, adrenal glands, and pancreas show no suspicious findings. Gallbladder and biliary tree are also without suspicious finding. Symmetric renal contour, without suspicious parenchymal findings within limits of noncontrast techniq ue. No hydroureteronephrosis. Bilateral renal nonobstructing calculi largest measuring up to 4 millim eter at the right lower pole. No dilated bowel loops or bowel wall thickening. No free air, free fluid or inflammatory stranding. N o hernia, mass or bulky lymphadenopathy. The urinary bladder is without significant finding. Prostati c calcifications. Dense streak artifact in the pelvis related to neural hip arthroplasty limits evalu ation. No suspicious bony findings. IMPRESSION: Bilateral nonobstructing renal calculi the largest measuring 4 millimeter. No other acut e intra-abdominal process.
--- NOTE | 2023-06-15 22:27 | P.HP ---
Certification for Inpatient Patient admitted to: Observation With expected LOS: <2 Midnights Practitioner: I am a practitioner with admitting privileges, knowledge of patient current condition, hospital course, and medical plan of care. Services: Services provided to patient in accordance with Admission requirements found in Title 42 Section 412.3 of the Code of Federal Regulations Patient History Date of Service: 06/16/23 Reason for admission: Leg swelling, suspected CHF. History of Present Illness: Six 7-year-old male patient was seen with significant medical history who came to the ED with complaint of leg swelling. Reported has been having swelling of the left for a couple of days/weeks. He reports no feelings of orthopnea, PND, dyspnea on exertion. 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 He decided to come to the ED because of leg swelling and in the ED he was worked up and found to have elevated BNP and chest x-ray was not concerning for pul monary edema he had significant leg swelling up to the thighs so he was started on IV diuretic with appropriate response. He was put into the hospital for management of suspected CHF. Allergies No Known Allergies Allergy (Verified 10/30/20 16:37) Review of Systems General: Unremarkable Eyes: Unremarkable ENT: Unremarkable Respiratory: Unremarkable Cardiovascular: Edema Gastrointestinal: Unremarkable Genitourinary: Unremarkable Musculoskeletal: Unremarkable Integumentary: Unremarkable Neurological: Unremarkable Physical Examination - Physical Exam General: Alert, Oriented x3 HEENT: Atraumatic Neck: Supple Respiratory: Normal air movement Cardiovascular: Regular rate/rhythm, Normal S1 S2 Gastrointestinal: Soft and benign Musculoskeletal: Swelling Neurological: Normal speech, Normal strength at 5/5 x4 extr - Studies Laboratory Data (last 24 hrs) 06/15/23 06/15/23 06/15/23 18:25 18:25 18:25 WBC 5.00 Hgb 12.5 L Hct 38.7 L Plt Count 187 PT 12.1 INR 1.10 Sodium 141 Potassium 4.2 BUN 42 H Creatinine 1.83 H Glucose 272 H Magnesium 2.2 Total Bilirubin 0.3 AST 28 ALT 41 Alkaline Phosphatase 110 Assessment and Plan - Plan CHF/leg swelling: Patient has significant symptoms concerning for CHF. Will have echocardiogram done to evaluate cardiac function. Will continue on Lasix therapy for volume management. Will continue fluid restriction of 1.5 L/day. Continue on low-sodium diet. Cardiology consultation placed. Prophylaxis: Lovenox for DVT prophylaxis CODE STATUS: Full code Disposition: Workup is suspected cardiac pathology and will be discharged once is deemed clinically stable. - Advance Directives Does patient have a Living Will: No Does patient have a Durable POA for Healthcare: No
[2023-06-15] MEDS ORDERED: ACETAMINOPHEN 325 MG TABLET PO PRN (22:28)
[2023-06-15] MEDS ORDERED: ONDANSETRON 4 MG/2 ML VIAL IV PRN (22:28)
[2023-06-16 04:09] VITALS: BMI 25.1
[2023-06-16 05:22] LABS: Absolute Lymphocytes (CBC) 1.4 K/uL (0.7-4.9); Hematocrit 38.1 % (39.6-49.0); Lymphocytes % 31.1 % (15.3-44.8); MCV 87.9 fL (80-100); Platelets 195 thou/uL (152-406); RBC Red Blood Cell Count 4.33 M/uL (4.33-5.43)
[2023-06-16 05:46] LABS: Potassium 3.8 mEq/L (3.5-5.1)
[2023-06-16] MEDS: INSULIN REGULAR (HUMAN) 100 UNIT/ML SQ SCH ×4 (07:30→21:00)
[2023-06-16] MEDS: ASPIRIN EC 81 MG TAB PO SCH (08:45)
[2023-06-16] MEDS: ENOXAPARIN 40 MG/0.4 ML SQ SCH ×2 (08:46→18:05)
[2023-06-16] MEDS ORDERED: INSULIN REGULAR (HUMAN) 100 UNIT/ML ONE (08:50)
[2023-06-16] MEDS ORDERED: ASPIRIN EC 81 MG TAB PO ONE (08:50)
[2023-06-16] MEDS ORDERED: FUROSEMIDE 40 MG/4 ML VIAL ONE (08:50)
[2023-06-16] MEDS ORDERED: ENOXAPARIN 40 MG/0.4 ML SQ ONE (08:51)
[2023-06-16] MEDS ORDERED: FUROSEMIDE 40 MG/4 ML VIAL IV SCH (09:00)
--- NOTE | 2023-06-16 11:38 | ECHO ---
HEIGHT: 5 ft 10 in WEIGHT: 175 lb 0 oz DATE OF STUDY: 06/16/[address]: Jorge Barajas MD 2-DIMENSIONAL: YES M.MODE: YES DOPPLER: YES COLOR FLOW: YES TDS: PORTABLE: YES DEFINITY: BUBBLE STUDY: DIAGNOSIS: EVALUATION OF CONGESTIVE HEART FAILURE CARDIAC HISTORY: CATHERIZATION: NO SURGERY: NO PROSTHETIC VALVE: NO PACEMAKER: NO MEASUREMENTS (cm) DIASTOLIC (NORMALS) SYSTOLIC (NORMALS) IVSd 1.2 (0.6-1.2) LA Diam 4.2 (1.9-4.0) LVEF 23% LVIDd 5.3 (3.5-5.7) LVIDs 4.7 (2.0-3.5) %FS 10% LVPWd 1.2 (0.6-1.2) Ao Diam 2.7 (2.0-3.7) 2 DIMENSIONAL ASSESSMENT: RIGHT ATRIUM: NORMAL LEFT ATRIUM: ENLARGED RIGHT VENTRICLE: NORMAL LEFT VENTRICLE: LEFT VENTRICULAR HYPERTROPHY TRICUSPID VALVE: MILD TRICUSPID REGURGITATION MITRAL VALVE: MILD MITRAL REGURGITATION PULMONIC VALVE: NORMAL AORTIC VALVE: NORMAL PERICARDIAL EFFUSION: NONE AORTIC ROOT: NORMAL LEFT VENTRICULAR WALL MOTION: SEVERE GLOBAL HYPOKINESIS DOPPLER/COLOR FLOW: SEE BELOW COMMENTS: 1. SEVERELY DEPRESSED LEFT VENTRICULAR EJECTION FRACTION 25-30% 2. SEVERE GLOBAL HYPOKINESIS 3. LEFT ATRIAL ENLARGEMENT 4. MILD MITRAL REGURGITATION 5. DIASTOLIC DYSFUNCTION 6. MILD TRICUSPID REGURGITATION TECHNOLOGIST: WANG MEJÍA
[2023-06-16] MEDS ORDERED: INFLUENZA VACCINE (for 6+ mo) 0.5 ML DOSE IMVAC ONE (12:00)
--- NOTE | 2023-06-16 12:03 | RAD REPORT ---
EXAM DESCRIPTION: US - Renal Ultrasound-Complete - 06/16/2023 11:24 am CLINICAL HISTORY: NAWAF COMPARISON: Stone Protocol dated 06/15/2023 TECHNIQUE: Sonographic grayscale and color flow images of the kidneys and bladder were obtained. FINDINGS: Both kidneys are normal in size, shape, and echotexture. The right kidney measures 9 cm in length. No hydronephrosis, or focal mass. Mildly echogenic 1 cm foc us near the pelvis may represent a small calculus or prominent fat, with no shadowing. The left kidney measures 9.5 cm in length. No hydronephrosis, or focal mass. 4 millimeter left lower pole echogenic shadowing calculus. The urinary bladder shows normal distention with mild wall thickening and layering debris. IMPRESSION: Bilateral echogenic foci along the renal pelvis, suggestive of calculi. The 1 cm focus o n the right could alternatively represent prominent hilar fat. Mild urinary bladder wall thickening and layering debris. Please correlate clinically for evidence of cystitis.
--- NOTE | 2023-06-16 15:13 | EKG ---
Test Date: 2023-06-15 Test Time: 18:31:59 Plating Tank Operator: MARYAN MEASUREMENT RESULTS: Intervals: Rate: 79 CT: 140 QRSD: 78 QT: 400 QTc: 458 [place]: P: 74 CT: 140 QRS: 95 T: 177 INTERPRETIVE STATEMENTS: Normal sinus rhythm Rightward axis Nonspecific ST and T wave abnormality Abnormal ECG No previous ECG available for comparison Electronically Signed On 06-16-23 15:10:50 RAILROAD DISPATCHER by Leon Coleman
[2023-06-16 17:44] LABS: Albumin 2.5 g/dL (3.4-5.0); Bilirubin Total 0.4 mg/dL (0.2-1.0); Magnesium 2.2 mg/dL (1.6-2.4); Protein, Total 5.3 g/dL (6.4-8.2)
[2023-06-16] MEDS ORDERED: SACUBITRIL/VALSARTAN 24/26 MG TAB PO SCH (21:00)
[2023-06-16] MEDS: MIDODRINE HCL 5 MG TABLET PO SCH (21:18)
[2023-06-16] MEDS: SACUBITRIL/VALSARTAN 24/26 MG TAB PO SCH (21:19)
[2023-06-17] MEDS: ASPIRIN EC 81 MG TAB PO SCH (05:11)
[2023-06-17] MEDS: INSULIN REGULAR (HUMAN) 100 UNIT/ML SQ SCH ×3 (07:30→16:30)
[2023-06-17] MEDS: MIDODRINE HCL 5 MG TABLET PO SCH ×3 (08:24→20:24)
[2023-06-17] MEDS: SACUBITRIL/VALSARTAN 24/26 MG TAB PO SCH ×2 (08:25→20:24)
[2023-06-17] MEDS: FUROSEMIDE 20 MG/ 2ML VIAL IV SCH ×2 (08:25→17:00)
[2023-06-17] MEDS ORDERED: LIDOCAINE 1% 20 ML MDV ONE (16:03)
[2023-06-17] MEDS ORDERED: HEPA 1000U/500MLS 2,000 UNIT/1,000 ML BAG IV ONE (16:03)
[2023-06-17] MEDS ORDERED: NITROGLYCERIN/D5W 50 MG/250 ML BTL IV ONE (16:47)
[2023-06-17] MEDS ORDERED: VERAPAMIL HCL 10 MG/4 ML VIAL IV ONE (16:47)
[2023-06-17] MEDS ORDERED: FENTANYL CITR 100 MCG/2 ML ONE (16:47)
[2023-06-17] MEDS ORDERED: MIDAZOLAM HCL 2 MG/2 ML INJ ONE (16:48)
[2023-06-17] MEDS ORDERED: HEPARIN 5000 UNIT/ML 1 ML VIAL ONE (16:48)
[2023-06-17] MEDS ORDERED: HEPARIN 10,000 UNIT/10 ML VIAL IV ONE (16:48)
[2023-06-17] MEDS ORDERED: NA CHLORIDE 0.9% 500 ML ONE (16:54)
[2023-06-17] MEDS ORDERED: Phenylephrine HCl 10 MG/ML 1 ML VIAL ONE (17:13)
--- NOTE | 2023-06-17 17:46 | OP ---
Date of Procedure: 06/17/2023 Surgeon: YOON WILKINSON Procedures Performed: 1.Selective coronary angiogram. 2.Left heart catheterization. Indication: A newly diagnosed systolic heart failure with ejection fraction below 30%. Access: Right radial artery 6-N[place]ien closed with TR band. Complications: None. Bleeding: Less than 20 mL. Anesthesia: Total sedation time was none. Blood pressure was low, could not give any sedation. Description Of Procedure: After risks, benefits, and alternatives were explained, patient agreed to procedure and signed informed consent. Patient was brought into cardiac catheterization laboratory, prepped and draped in the usual sterile fashion. Then, I accessed right radial artery using Fluid c micropuncture kit, placed a 6-Nigerien Slender sheath and took a 5-Nigerien [place] 4.0 catheter into the aortic root over a J-wire, engaged left main, took standard views and then in the RCA and took stand sadia views and then the catheter was pushed into the LV, measured the LVEDP, and pullback did not samantha rd any gradient. Then, I removed the catheter and the sheath. Placed TR band with good hemostasis. Findings: 1.Left main; proximal 20%, but it is still with very large lumen. It is about 6 mm vessel. 2.LAD; very large, proximal 20% to 30%, mid 20%. Diagonal branches are normal. 3.Left circumflex is normal. 4.RCA is large and dominant and has mid 30% stenosis. 5.LVEDP is elevated at 27 mmHg. Conclusion: 1.Mild nonobstructive coronary artery disease. 2.Elevated LVEDP. Recommendation: Guideline directed medical therapy for congestive heart failure and IV diuretics. SR/MODL Voice ID: [id number] Report ID: [id number]
[2023-06-18] MEDS: INSULIN REGULAR (HUMAN) 100 UNIT/ML SQ SCH ×3 (00:49→11:30)
[2023-06-18] MEDS: MIDODRINE HCL 5 MG TABLET PO SCH (08:44)
[2023-06-18] MEDS: FUROSEMIDE 20 MG/ 2ML VIAL IV SCH (08:44)
[2023-06-18] MEDS: ASPIRIN EC 81 MG TAB PO SCH (08:44)
[2023-06-18 08:45] VITALS: BP 109/69
[2023-06-18] MEDS: ENOXAPARIN 40 MG/0.4 ML SQ SCH (08:45)
[2023-06-18] MEDS: SACUBITRIL/VALSARTAN 24/26 MG TAB PO SCH (09:00)
[2023-06-18 09:19] VITALS: TEMP 97.6
[2023-06-18 09:41] VITALS: O2SAT 100
== END 2023-06-18 13:55 | disposition home or self-care (01) | DRG 281 ==
LOC: ER 17:45 → ERHOLD 22:28 → 4TH 06-16 08:34 → OBSVTOIN 06-16 15:28
PROVIDERS: ADMIT Internal Medicine Nephrology; ATTEND Hospitalist
PROC: 4A023N7 Measurement of Cardiac Sampling and Pressure, Left Heart, Percutaneous Approach (ICD-10-PCS; principal; 2023-06-17)
PROC: B2111ZZ Fluoroscopy of Multiple Coronary Arteries using Low Osmolar Contrast (ICD-10-PCS; 2023-06-17)
DX: I13.0 Hypertensive heart and chronic kidney disease with heart failure and stage 1 through stage 4 chronic kidney disease, or unspecified chronic kidney disease (principal); I21.4 Non-ST elevation (NSTEMI) myocardial infarction; N17.9 Acute kidney failure, unspecified; N39.0 Urinary tract infection, site not specified; I50.9 Heart failure, unspecified; N18.9 Chronic kidney disease, unspecified; E11.22 Type 2 diabetes mellitus with diabetic chronic kidney disease; E11.65 Type 2 diabetes mellitus with hyperglycemia; E78.00 Pure hypercholesterolemia, unspecified; M71.22 Synovial cyst of popliteal space [Baker], left knee; M71.21 Synovial cyst of popliteal space [Baker], right knee; I25.10 Atherosclerotic heart disease of native coronary artery without angina pectoris
CPT/HCPCS: 36415; 71045; 74176; 76377; 76770; 76937; 80048; 80053; 80076; 81001; 82947; 83735; 83880; 84484; 85025; 85610; 87086; 87088; 93005; 93306; 93458; 93970; 96365; 96366; 96372; 96375; 99152; 99153; 99285; C1893; G0378; J0696; J1644; J1650; J1815; J1940; J2001; J2250; J2371; J3010; J7040; Q9966

== ENCOUNTER 2023-10-23 02:25 | Emergency (ER) | payer OTHER ==
[2023-10-23] MEDS ORDERED: IBUPROFEN 400 MG TAB ONE (02:31)
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
[2023-10-23 11:54] VITALS: BP 93/68; TEMP 98.2; O2SAT 95
--- NOTE | 2023-10-24 11:46 | RAD REPORT ---
EXAM DESCRIPTION: RAD - Lumbar Spine 3 Views - 10/23/2023 4:25 am CLINICAL HISTORY: Pain COMPARISON: None. TECHNIQUE: Lumbar Spine 3 Views FINDINGS: Lumbar spine shows minimal leftward convex curvature. No fracture or subluxation. Moderate-sized, anterolateral, endplate osteophytes throughout lumbar spine. No significant sclerotic/lytic bone lesion. Lumbar disc spaces show no significant narrowing. Partially-imaged left total hip arthroplasty. Bilateral iliac arterial calcifications IMPRESSION: Mild lumbar spine degenerative disease. Electronically signed by: Kody Issa MD 10/23/2023 05:05 AM CDT Due to temporary technical issues with the PACS/Fluency reporting system, reports are being signed by the in house radiologist without review as a courtesy to ensure prompt reporting. The interpreting r adiologist is fully responsible for the content of the report
--- NOTE | 2023-10-24 11:51 | RAD REPORT ---
EXAM DESCRIPTION: RAD - Shoulder Left 2 View - 10/23/2023 3:44 am CLINICAL HISTORY: Trauma, pain TECHNIQUE: Two views of the left shoulder. COMPARISON: No relevant prior studies available. FINDINGS: Bones/joints: Mild degenerative changes at the glenohumeral and acromioclavicular articu lations. No acute fracture. No dislocation. Soft tissues: Unremarkable. IMPRESSION: No acute injury. Electronically signed by: Eh Pagan MD 10/23/2023 04:02 AM CDT Due to temporary technical issues with the PACS/Fluency reporting system, reports are being signed by the in house radiologist without review as a courtesy to ensure prompt reporting. The interpreting r adiologist is fully responsible for the content of the report.
--- NOTE | 2023-10-24 12:29 | RAD REPORT ---
EXAM DESCRIPTION: RAD - Forearm Left - 10/23/2023 3:45 am CLINICAL HISTORY: Trauma, pain TECHNIQUE: Frontal and lateral views of the left forearm. COMPARISON: No relevant prior studies available. FINDINGS: Bones/joints: Unremarkable. No acute fracture. No dislocation. Soft tissues: Unremarkable. Vasculature: Atherosclerotic disease. IMPRESSION: No acute injury. Electronically signed by: Eh Pagan MD 10/23/2023 04:01 AM CDT Due to temporary technical issues with the PACS/Fluency reporting system, reports are being signed by the in house radiologist without review as a courtesy to ensure prompt reporting. The interpreting r adiologist is fully responsible for the content of the report.
--- NOTE | 2023-10-24 12:30 | RAD REPORT ---
EXAM DESCRIPTION: CT - Head C Spine Mpr Wo Con - 10/23/2023 6:54 am CLINICAL HISTORY: The patient is 67 years old and is Male; TRAUMA TECHNIQUE: Axial computed tomography images of the head/brain and cervical spine without intravenous contrast. Sagittal and coronal reformatted images were created and reviewed. This CT exam was pe rformed using one or more of the following dose reduction techniques: automated exposure control, a djustment of the mA and/or kV according to patient size, and/or use of iterative reconstruction techn ique. COMPARISON: No relevant prior studies available. FINDINGS: Brain: Unremarkable. No hemorrhage. No significant white matter disease. No edema. Ventricles: Unremarkable. No ventriculomegaly. Skull: No acute fracture. Sinuses: Unremarkable as visualized. No acute sinusitis. Mastoid air cells: Unremarkable as visualized. No mastoid effusion. Vertebrae: See below. Discs/spinal canal/neural foramina: Moderate spinal canal narrowing at C2-3. Moderate left neural foraminal narrowing and moderate spinal canal narrowing at C3-4. Moderate to severe left and moderate right neural foraminal narrowing at C4-5. Moderate spinal canal narrowing at C5-6. Soft tissues: Unremarkable. IMPRESSION: No acute intracranial abnormality. No acute findings in the cervical spine. Electronically signed by: Rafael Brooks MD 10/23/2023 03:32 AM CDT Due to temporary technical issues with the PACS/Fluency reporting system, reports are being signed by the in house radiologist without review as a courtesy to ensure prompt reporting. The interpreting r adiologist is fully responsible for the content of the report.
== END 2023-10-23 05:32 | disposition home or self-care (01) ==
LOC: ER 02:25
DX: M54.2 Cervicalgia (principal); M54.50 Low back pain, unspecified; M79.602 Pain in left arm; V49.40XA Driver injured in collision with unspecified motor vehicles in traffic accident, initial encounter; E11.9 Type 2 diabetes mellitus without complications; E78.00 Pure hypercholesterolemia, unspecified
CPT/HCPCS: 70450; 72100; 72125; 99284

== ENCOUNTER → 2024-06-15 | Emergency (ER) | payer OTHER ==
[~2024-06-15] MED LIST: ACETAMINOPHEN 500 MG TAB PO PRN; ALPRAZOLAM 0.25 MG TABLET PO PRN; D10W 125 ML IV PRN; D10W 250 ML IV ONE; D50W 25 GM/50 ML SYRINGE IV PRN; HEPARIN 5000 UNIT/ML 1 ML VIAL ONE; HEPARIN/D5W 25,000 UNIT/500 ML BAG IV ONE; NA CHLORIDE 0.9% 2,000 ML ONE; ONDANSETRON 4 MG/2 ML VIAL IV PRN
[2024-06-15 06:33] LABS: Absolute Eosinophils 0.1 K/uL (0-0.5); Absolute Monocytes 0.3 K/uL (0.1-1.3); Absolute Neutrophil 1.8 K/uL (1.8-8.0); Basophils % 0.5 % (0-1.3); Eosinophils % 3.6 % (0-4.4); Hematocrit 42.7 % (39.6-49.0); Lymphocytes % 30.1 % (15.3-44.8); MCH 29.2 pg (27.0-35.0); MCHC 32.8 g/dL (32.0-36.0); MCV 88.9 fL (80-100); MPV 7.8 fL (7.6-11.3); Monocytes % 10.2 % (3.3-12.3); Neutrophils % 55.6 % (41.7-73.7); Nucleated Red Blood Cells % 0.1 % (0-0); Platelets 210 thou/uL (152-406); Red Cell Distribution Width 13.5 % (12.1-15.2)
[2024-06-15 06:42] LABS: PT Prothrombin Time 10.3 SECONDS (9.4-12.5); Protime INR 0.92
[2024-06-15 06:56] LABS: ALT/SGPT 52 U/L (16-61); AST/SGOT 43 U/L (15-37); Albumin 2.9 g/dL (3.4-5.0); Alkaline Phosphatase 131 U/L (45-117); Anion Gap 6.2 mEq/L (5.0-15.0); BUN Blood Urea Nitrogen 38 mg/dL (7-18); Bicarbonate 32 mEq/L (21-32); Bilirubin Total 0.3 mg/dL (0.2-1.0); Globulin 2.8 g/dL (2.3-3.5); Glomerular Filtration Rate 43 ml/min (=/>90); Glucose Level 92 mg/dL (74-106); Magnesium 2.4 mg/dL (1.6-2.4); NT PRO-BNP 8762 pg/mL (<125); Potassium 4.2 mEq/L (3.5-5.1); Protein, Total 5.7 g/dL (6.4-8.2); Sodium Level 139 mEq/L (136-145)
[2024-06-15 06:57] LABS: Bilirubin Direct < 0.2 mg/dL (0-0.2); Bilirubin Indirect, Calculated 0.1 mg/dL (0.2-0.8)
[2024-06-15 06:58] LABS: Troponin High Sensitivity 91.2 pg/mL (<58.9)
--- NOTE | 2024-06-15 07:37 | RAD REPORT ---
EXAM: XR Chest, 1 View CLINICAL HISTORY: The patient is 68 years old and is Male; Chest pain. TECHNIQUE: Single view of the chest. COMPARISON: No relevant prior studies available. FINDINGS: Lungs: No pulmonary vascular congestion or consolidation. Pleural space: Unremarkable. No pneumothorax. Heart: The cardiac silhouette is enlarged versus artifact of AP technique. Mediastinum: Unremarkable. Bones/joints: Degenerative changes in the AC joints. No acute rib fracture. Upper abdomen: No free air in the visualized upper abdomen. IMPRESSION: No acute cardiopulmonary process identified. Electronically signed by: Adele Howe MD 06/15/2024 06:[address] [facility] [place] Due to temporary technical issues with the PACS/[employer] reporting system, reports are being christie d by the in-house radiologist without review as a courtesy to ensure prompt reporting the interpreting radiologist is fully responsible for the content of the report. Transcribed Date/Time: 06/15/2024 7:36 AM
--- NOTE | 2024-06-15 08:10 | EDPHYS ---
Physician Documentation [facility] Name: Willy Yoo Age: 68 yrs Sex: Male : 1955 Arrival Date: 06/15/2024 Time: 05:51 Bed 2 Private MD: ED Physician Donald Parra HPI: 06/15 06:08 This 68 yrs old Black Male presents to ER via Unassigned with complaints of Low Blood sp4 Sugar. 08:04 Patient is a 68-year-old male history of CHF, current medications include atorvastatin, sp4 Jardiance, sitagliptin, aspirin,, furosemide, midodrine, potassium, Entresto. Patient presents with fluctuating blood sugars but otherwise reports no other symptoms. He reports that his sugars were registered as low by his Dexcom device. . Historical: - Allergies: 06:00 No Known Allergies; ha1 - Home Meds: 06:00 midodrine 5 mg oral tablet [Active]; ha1 - PMHx: 06:00 diabetes mellitus; High Cholesterol; LOW BLOOD PRESSURE (2023); ha1 - Immunization history:: Adult Immunizations up to date. - Infectious Disease History:: Denies. - Social history:: Smoking status: Patient denies any tobacco usage or history of. - Family history:: not pertinent. ROS: 08:06 Constitutional: Negative for fever, chills, and weight loss, positive for fluctuations sp4 in blood sugar. 08:06 All other systems are negative, Exam: 08:06 Constitutional: This is a well developed, well nourished patient who is awake, alert, sp4 and in no acute distress. Head/Face: Normocephalic, atraumatic. Eyes: Pupils equal round and reactive to light, extra-ocular motions intact. Lids and lashes normal. Conjunctiva and sclera are not injected. Cornea within normal limits. Periorbital areas with no swelling, redness, or edema. ENT: Nares patent. No nasal discharge, no septal abnormalities noted. Tympanic membranes are normal and external auditory canals are clear. Oropharynx with no redness, swelling, or masses, exudates, or evidence of obstruction, uvula midline. Mucous membranes moist. Neck: Trachea midline, no thyromegaly or masses palpated, and no cervical lymphadenopathy. Supple, full range of motion without nuchal rigidity, or vertebral point tenderness. Chest/axilla: Normal chest wall appearance and motion. Nontender with no deformity. No lesions are appreciated. Cardiovascular: Regular rate and rhythm with a normal S1 and S2. No gallops, murmurs, or rubs. Normal PMI, no JVD. No pulse deficits. Respiratory: Lungs have equal breath sounds bilaterally, clear to auscultation and percussion. No rales, rhonchi or wheezes noted. No increased work of breathing, no retractions or nasal flaring. Abdomen/GI: Soft, with normal bowel sounds. No distension or tympany. No guarding or rebound. No evidence of tenderness throughout. Back: No spinal tenderness. No costovertebral tenderness. Skin: Warm, dry with normal turgor. Normal color with no rashes, no lesions, and no evidence of cellulitis. MS/ Extremity: Pulses equal, no cyanosis. Neurovascular intact. Full, normal range of motion. Neuro: Awake and alert, GCS 15, oriented to person, place, time, and situation. Cranial nerves II-XII grossly intact. Motor strength 5/5 in all extremities. Sensory grossly intact. Psych: Awake, alert, with orientation to person, place and time. Behavior, mood, and affect are within normal limits 08:06 ECG was reviewed by the Attending Physician. EKG at 0 614 normal sinus rhythm rate 90. Prolonged QT. Otherwise normal Vital Signs: 06:00 BP 99 / 73; Pulse 90; Resp 18 S; Temp 97.2(T); Pulse Ox 99% on R/A; Weight 77.11 kg; ha1 Height 5 ft. 10 in. ; 07:00 BP 80 / 61; Pulse 89; Resp 16; Pulse Ox 97% ; ko1 07:29 BP 93 / 73; Pulse 85; Resp 16; Pulse Ox 98% ; ko1 08:02 BP 97 / 70; Pulse 74; Resp 16; Pulse Ox 98% ; ko1 06:00 Body Mass Index 24.39 (77.11 kg, 177.8 cm) [facility] MDM: 06:22 Medical Screening Exam initiated sp4 07:47 ED course: EXAM: XR Chest, 1 View CLINICAL HISTORY: The patient is 68 years old and is sp4 Male; Chest pain. TECHNIQUE: Single view of the chest. COMPARISON: No relevant prior studies available. FINDINGS: Lungs: No pulmonary vascular congestion or consolidation. Pleural space: Unremarkable. No pneumothorax. Heart: The cardiac silhouette is enlarged versus artifact of AP technique. Mediastinum: Unremarkable. Bones/joints: Degenerative changes in the AC joints. No acute rib fracture. Upper abdomen: No free air in the visualized upper abdomen. IMPRESSION: No acute cardiopulmonary process identified. . 08:08 Differential diagnosis: DKA, hyperglycemia, hyperthyroidism, myxedema coma, new onset sp4 diabetes, thyroid storm. Data reviewed: vital signs, nurses notes, old medical records, lab test result(s), EKG, radiologic studies, plain films. Consideration of Admission/Observation Patient was admitted/placed on observation. Escalation of care including admission/observation considered. Management of patient was discussed with the following: Hospitalist: admit team, Dr. Lucas VARGHESE . ED course: Patient's troponin is elevated. Stable for admission for further evaluation.. 06/15 06:09 Order name: Basic Metabolic Panel; Complete Time: 07:46 sp4 06/15 06:09 Order name: CBC with Diff; Complete Time: 07:46 sp4 06/15 06:09 Order name: LFT's; Complete Time: 07:46 sp4 06/15 06:09 Order name: Magnesium; Complete Time: 07:46 sp4 06/15 06:09 Order name: NT PRO-BNP; Complete Time: 07:46 sp4 06/15 06:09 Order name: PT-INR; Complete Time: 07:46 sp4 06/15 06:09 Order name: Troponin HS; Complete Time: 07:46 sp4 06/15 06:24 Order name: Glucose, Ancillary Testing; Complete Time: 07:46 EDMS 06/15 07:27 Order name: Glucose, Ancillary Testing; Complete Time: 07:46 EDMS 06/15 08:41 Order name: Urinalysis w/ reflexes EDMS 06/15 08:42 Order name: Basic Metabolic Panel EDMS 06/15 08:42 Order name: Basic Metabolic Panel EDMS 06/15 08:42 Order name: Basic Metabolic Panel EDMS 06/15 08:42 Order name: Basic Metabolic Panel EDMS 06/15 08:42 Order name: CBC with Automated Diff EDMS 06/15 08:42 Order name: CBC with Automated Diff EDMS 06/15 08:42 Order name: CBC with Automated Diff EDMS 06/15 08:42 Order name: CBC with Automated Diff EDMS 06/15 08:42 Order name: Lipid Profile EDMS 06/15 08:42 Order name: Lipid Profile EDMS 06/15 08:42 Order name: Magnesium EDMS 06/15 08:42 Order name: Magnesium EDMS 06/15 08:42 Order name: Magnesium EDMS 06/15 08:42 Order name: Magnesium EDMS 06/15 08:42 Order name: NT PRO-BNP EDMS 06/15 08:42 Order name: NT PRO-BNP EDMS 06/15 08:42 Order name: NT PRO-BNP EDMS 06/15 08:42 Order name: NT PRO-BNP EDMS 06/15 08:42 Order name: Troponin High Sensitivity EDMS 06/15 08:42 Order name: Troponin High Sensitivity; Complete Time: 03:57 EDMS 06/15 08:42 Order name: Troponin High Sensitivity EDMS 06/15 08:42 Order name: Troponin High Sensitivity EDMS 06/15 10:07 Order name: Glucose, Ancillary Testing; Complete Time: 03:57 EDMS 06/15 11:52 Order name: Glucose, Ancillary Testing; Complete Time: 03:57 EDMS 06/15 06:09 Order name: XRAY Chest (1 view); Complete Time: 03:57 sp4 06/15 08:38 Order name: CONS Physician Consult EDHI 06/15 06:09 Order name: Cardiac monitoring; Complete Time: 06:20 sp4 06/15 06:09 Order name: EKG - Nurse/Tech; Complete Time: 06:20 sp4 06/15 06:09 Order name: IV Saline Lock; Complete Time: 06:29 sp4 06/15 06:09 Order name: Labs collected and sent; Complete Time: 06:29 sp4 06/15 06:09 Order name: O2 Per Protocol; Complete Time: 06:29 sp4 06/15 06:09 Order name: O2 Sat Monitoring; Complete Time: :29 sp4 EC:06 Rate is 90 beats/min. Rhythm is regular, Normal Sinus Rhythm. QRS [place] is Normal. [place] sp4 interval is normal. QRS interval is normal. QT interval is prolonged. No Q waves. T waves are Normal. No ST changes noted. Clinical impression: No evidence of ischemia. Interpreted by me. Reviewed by me. Administered Medications: 06:53 Drug: NS 0.9% IV 1000 ml IV at 1 bolus Per protocol; to be given as a bolus over 60 br2 minutes Route: IV; Rate: 1 bolus; Site: right antecubital; 14:30 Follow up: IV Status: Completed infusion bp 06:53 Drug: NS 0.9% IV 1000 ml IV at 1000 ml once; to be given as a bolus over 60 minutes br2 Route: IV; Rate: 1000 ml; Site: right antecubital; 14:31 Follow up: IV Status: Completed infusion bp 07:22 Drug: D10 in Water IVP 250 ml IVP once Route: IVP; Site: left antecubital; bp 14:31 Follow up: Response: No adverse reaction bp 08:28 Drug: Heparin ([place]-Bolus No thrombolytic) - HEParin IVP 60 units/kg IVP once; Max 5000 bp units {Co-Signature: agueda (Ayla Meraz RN).} Route: IVP; Site: right antecubital; 14:31 Follow up: Response: No adverse reaction bp 08:28 Drug: Heparin ([place] Drip) 12 units/kg/hr - ([place] [address] units, D5W IV 500 ml) IV at bp calculated rate Per protocol; Max initial rate 1000 units/hr {Co-Signature: agueda (Ayla Meraz RN).} Route: IV; Rate: calculated rate; Site: right antecubital; 14:30 Follow up: IV Status: Order to discontinue infusion bp Point of Care Testing: Blood Glucose: 06:00 Blood Glucose: 82 mg/dL; ha1 Ranges: Critical Glucose Levels:Adult <50 mg/dl or >400 mg/dl <40 mg/dl or >180 mg/dl Disposition Summary: 06/15/24 08:10 Hospitalization Ordered Notes: Hospitalization Status: Inpatient Admission sp4 Provider: June Zavala sp4 Condition: Stable sp4 Problem: new sp4 Symptoms: have improved sp4 Bed/Room Type: Standard sp4 Location: [facility] ER HOLD(06/15/24 09:38) Room Assignment: (06/15/24 09:38) ss Diagnosis - NSTEMI, acute CHF exacerbation sp4 - Brittle diabetes type II , acute hypoglycemia sp4 Forms: - Medication Reconciliation Form sp4 - SBAR form sp4 - Leadership Thank You Letter sp4 Signatures: Dispatcher [employer] EDMS Vika, Shawna sp Jazz Hercules, RN RN ss Frank Atkinson RN RN bp Alana Vazquez, LEELEE RN ha1 Donald Parra MD MD sp4 Elina Wesley RN RN br2 Ayla Meraz RN ko1 Corrections: (The following items were deleted from the chart) 06:10 06:10 BASIC METABOLIC PANEL+C.LAB.BRZ ordered. EDMS EDMS 06:10 06:10 CBC+H.LAB.BRZ ordered. EDMS EDMS 06:10 06:10 HEPATIC FUNCTION+C.LAB.BRZ ordered. EDMS EDMS 06:10 06:10 MAGNESIUM+C.LAB.BRZ ordered. EDMS EDMS 06:10 06:10 PROBNP+C.LAB.BRZ ordered. EDMS EDMS 06:10 06:10 PROTIME (+INR)+COAG.LAB.BRZ ordered. EDMS EDMS 06:10 06:10 Troponin High Sensitivity+C.LAB.BRZ ordered. EDMS EDMS 06:10 06:10 Chest Single View+RAD.RAD.BRZ ordered. EDMS EDMS 08:57 08:10 sp4 sp 09:29 08:10 Telemetry/MedSurg (observation) sp4 bp 09:29 08:57 410 sp bp 09:37 09:29 BR ER HOLD bp ss 09:37 09:29 bp ss 09:38 09:37 Telemetry/MedSurg (Inpatient) ss ss 09:38 09:37 410 ss ss
--- NOTE | 2024-06-15 08:10 | ER ---
Nurse's Notes [facility] Name: Willy Yoo Age: 68 yrs Sex: Male : 1955 Arrival Date: 06/15/2024 Time: 05:51 Bed 2 Private MD: Diagnosis: NSTEMI, acute CHF exacerbation;Brittle diabetes type II , acute hypoglycemia Presentation: 06/15 06:00 Chief complaint: Patient states: LOW BLOOD SUGAR AT HOME , BUT I FEEL NORMAL. ha1 06:00 Coronavirus screen: Vaccine status: Patient reports receiving the 1st dose of the Covid ha1 vaccine. Ebola Screen: No symptoms or risks identified at this time. Initial Sepsis Screen: Does the patient meet any 2 criteria? No. Patient's initial sepsis screen is negative. Does the patient have a suspected source of infection? No. Patient's initial sepsis screen is negative. Risk Assessment: Do you want to hurt yourself or someone else? Patient reports no desire to harm self or others. Onset of symptoms was June 15, 2024. 06:00 Method Of Arrival: Ambulatory ha1 06:00 Acuity: JARAD 3 ha1 Triage Assessment: 06:00 General: Appears comfortable, Behavior is calm, cooperative. Pain: Denies pain. Neuro: ha1 Level of Consciousness is awake, alert, obeys commands, Oriented to person, place, time, situation. Cardiovascular: Capillary refill < 3 seconds Patient's skin is warm and dry. Respiratory: Airway is patent Respiratory effort is even, unlabored, Respiratory pattern is regular, symmetrical. GI: Reports LOW SUGAR LEVEL. Musculoskeletal: Circulation, motion, and sensation intact. Range of motion: intact in all extremities. Historical: - Allergies: 06:00 No Known Allergies; ha1 - Home Meds: 06:00 midodrine 5 mg oral tablet [Active]; ha1 - PMHx: 06:00 diabetes mellitus; High Cholesterol; LOW BLOOD PRESSURE (2023); ha1 - Immunization history:: Adult Immunizations up to date. - Infectious Disease History:: Denies. - Social history:: Smoking status: Patient denies any tobacco usage or history of. - Family history:: not pertinent. Screenin:00 [facility] ED Fall Risk Assessment (Adult) History of falling in the last 3 months, ha1 including since admission No falls in past 3 months (0 pts) Confusion or Disorientation No (0 pts) Intoxicated or Sedated No (0 pts) Impaired Gait No (0 pts) Mobility Assist Device Used No (0 pt) Altered Elimination No (0 pt) Score/Fall Risk Level 0 - 2 = Low Risk Oriented to surroundings, Maintained a safe environment, Educated pt \T\ family on fall prevention, incl call for assistance when getting out of bed, Hourly rounding (assess needs \T\ fall precautionary measures) done. Abuse screen: Denies threats or abuse. Denies injuries from another. Nutritional screening: No deficits noted. Tuberculosis screening: No symptoms or risk factors identified. Assessment: 06:15 Reassessment: Patient and/or family updated on plan of care and expected duration. Pain br2 level reassessed. Patient is alert, oriented x 3, equal unlabored respirations, skin warm/dry/pink. General: Appears in no apparent distress. comfortable, Behavior is calm, cooperative. Pain: Denies pain. Neuro: [place] Agitation-Sedation Scale (RASS): 0 - Alert and Calm Level of Consciousness is awake, alert, obeys commands, Oriented to person, place, time, situation. Cardiovascular: Capillary refill < 3 seconds. Respiratory: Airway is patent Respiratory effort is even, unlabored, Respiratory pattern is regular, symmetrical. GI: GI: No signs and/or symptoms were reported involving the gastrointestinal system. : No signs and/or symptoms were reported regarding the genitourinary system. EENT: No signs and/or symptoms were reported regarding the EENT system. Derm: No signs and/or symptoms reported regarding the dermatologic system. Musculoskeletal: Capillary refill < 3 seconds, Range of motion: intact in all extremities. Vital Signs: 06:00 BP 99 / 73; Pulse 90; Resp 18 S; Temp 97.2(T); Pulse Ox 99% on R/A; Weight 77.11 kg; ha1 Height 5 ft. 10 in. ; 07:00 BP 80 / 61; Pulse 89; Resp 16; Pulse Ox 97% ; ko1 07:29 BP 93 / 73; Pulse 85; Resp 16; Pulse Ox 98% ; ko1 08:02 BP 97 / 70; Pulse 74; Resp 16; Pulse Ox 98% ; ko1 06:00 Body Mass Index 24.39 (77.11 kg, 177.8 cm) [facility] ED Course: 05:58 Patient arrived in ED. gm2 06:00 Patient has correct armband on for positive identification. Placed in gown. Bed in low ha1 position. Call light in reach. Side rails up X 1. 06:08 Donald Parra MD is Attending Physician. sp4 06:15 Inserted saline lock: 20 gauge in right forearm, using aseptic technique. Blood br2 collected. Flushed with 10 mL NS. 06:22 EKG done, by signal technician. af3 06:26 Triage completed. ha1 06:29 XRAY Chest (1 view) In Process Unspecified. EDMS 06:46 Elina Wesley, RN is Primary Nurse. br2 07:00 Pt visited by . ko1 07:05 Patient requests rest room assistance. ko1 07:05 Assisted with urinal. ko1 07:20 Patient requests food. ko1 07:50 ED physician to see patient. ko1 07:59 Patient requests rest room assistance. ko1 07:59 No provider procedures requiring assistance completed. ko1 07:59 Provided Education on: blood sugar and blood pressure. Client placed on continuous ko1 cardiac and pulse oximetry monitoring. NIBP monitoring applied. information technology administrator on. Door closed. Noise minimized. Lights dimmed. 07:59 Assisted with urinal. ko1 08:09 June Zavala MD is Hospitalizing Provider. sp4 Administered Medications: 06:53 Drug: NS 0.9% IV 1000 ml IV at 1 bolus Per protocol; to be given as a bolus over 60 br2 minutes Route: IV; Rate: 1 bolus; Site: right antecubital; 14:30 Follow up: IV Status: Completed infusion bp 06:53 Drug: NS 0.9% IV 1000 ml IV at 1000 ml once; to be given as a bolus over 60 minutes br2 Route: IV; Rate: 1000 ml; Site: right antecubital; 14:31 Follow up: IV Status: Completed infusion bp 07:22 Drug: D10 in Water IVP 250 ml IVP once Route: IVP; Site: left antecubital; bp 14:31 Follow up: Response: No adverse reaction bp 08:28 Drug: Heparin ([place]-Bolus No thrombolytic) - HEParin IVP 60 units/kg IVP once; Max 5000 bp units {Co-Signature: ko1 (Ayla Meraz RN).} Route: IVP; Site: right antecubital; 14:31 Follow up: Response: No adverse reaction bp 08:28 Drug: Heparin ([place] Drip) 12 units/kg/[place] - ([place] [address] units, D5W IV 500 ml) IV at bp calculated rate Per protocol; Max initial rate 1000 units/hr {Co-Signature: ko1 (Ayla Meraz RN).} Route: IV; Rate: calculated rate; Site: right antecubital; 14:30 Follow up: IV Status: Order to discontinue infusion bp Medication: 06:30 VIS not applicable for this client. ha1 Point of Care Testing: Blood Glucose: 06:00 Blood Glucose: 82 mg/dL; ha1 Ranges: Outcome: 08:10 Decision to Hospitalize by Provider. sp4 14:30 Patient left the ED. bp Signatures: Dispatcher [employer] EDMS Frakn Atkinson, LEELEE RN bp Alana Vazquez RN RN ha1 Ayla Meraz, LEELEE RN ko1 Donald Parra MD MD sp4 Danae Stack 2 Elina Wesley RN RN br2 Starla Trujillo 3 Ayla Meraz RN ko1
--- NOTE | 2024-06-15 08:33 | P.HP ---
Certification for Inpatient Patient admitted to: Observation Practitioner: I am a practitioner with admitting privileges, knowledge of patient current condition, hospital course, and medical plan of care. Services: Services provided to patient in accordance with Admission requirements found in Title 42 Section 412.3 of the Code of Federal Regulations Patient History Date of Service: 06/15/24 Reason for admission: Hypoglycemia History of Present Illness: 68-year-old -[place] male with a past medical history of heart failure,Diabetes, hyperlipidemia, hypertension, presents to the emergency room with hypoglycemia. He reports recently starting insulin, reports hypoglycemia overnight. Blood sugar was 58. He reports seeing Dr. Coleman for heart failure, on Entresto, he denies chest pain, shortness of breath, abdominal pain, dizziness, edema. Plan to admit to obs for hypoglycemia, NSTEMI, elevated troponin. With Dr. Coleman to consult Allergies No Known Allergies Allergy (Verified 10/30/20 16:37) Home Medications: Atorvastatin Calcium [Lipitor*] 20 mg PO DAILY 06/16/23 Empagliflozin [Jardiance] 25 mg PO DAILY 06/16/23 Sitagliptin Phosphate [Januvia] 100 mg PO DAILY 06/16/23 Aspirin 81 mg PO DAILY #30 tab.chew 06/18/23 Aspirin [Aspirin EC 81 MG] 81 mg PO DAILY #30 tab 06/18/23 Furosemide [Lasix] 20 mg PO BIDL #60 tab 06/18/23 Midodrine HCl [Proamatine*] 5 mg PO TID #90 tab 06/18/23 Potassium Chloride 10 meq PO DAILY #30 tab 06/18/23 Sacubitril/Valsartan [Entresto 24 mg-26 mg Tablet] 0.5 tab PO BID #30 tab Review of Systems 10-point ROS is otherwise unremarkable General: As per HPI Physical Examination - Physical Exam General: Alert, In no apparent distress, Oriented x3 HEENT: Atraumatic, Normocephalic Neck: Supple, 2+ carotid pulse no bruit Respiratory: Clear to auscultation bilaterally, Normal air movement Cardiovascular: Normal pulses, Regular rate/rhythm, Normal S1 S2 Capillary refill: <2 Seconds Gastrointestinal: Normal bowel sounds, Soft and benign Musculoskeletal: No clubbing, No swelling Integumentary: No breakdown, No significant lesion Neurological: Normal speech, Normal strength at 5/5 x4 extr, Cranial nerves 3-12 intact - Studies Laboratory Data (last 24 hrs) 06/15/24 06/15/24 06/15/24 06:18 06:18 06:18 WBC 3.20 L Hgb 14.0 Hct 42.7 Plt Count 210 PT 10.3 INR 0.92 Sodium 139 Potassium 4.2 BUN 38 H Creatinine 1.72 H Glucose 92 Magnesium 2.4 Total Bilirubin 0.3 AST 43 H ALT 52 Alkaline Phosphatase 131 H Assessment and Plan - Problems (Diagnosis) (1) Hypoglycemia Current Visit: Yes Status: Acute (2) Diabetes mellitus type 2, insulin dependent Current Visit: Yes Status: Acute (3) NSTEMI (non-ST elevated myocardial infarction) Current Visit: Yes Status: Acute (4) Elevated brain natriuretic peptide (BNP) level Current Visit: Yes Status: Acute - Plan Admit to MedSur, Cardiology to consult, telemetry, Trend troponins, BNP, Instructed to stop insulin, Can resume p.o. metformin, p.o. oral hypoglycemics. Follow-up with PCP, endocrinology after discharge-information given to patient for [facility] and endocrinology prior to Accu-Cheks ACHS, hypoglycemia protocol EKG normal sinus rhythm, nonspecific ST elevation Full code DVT heparin drip Diet cardiac Disposition Home independent prior Discharge Plan: Home - Advance Directives Does patient have a Living Will: No Does patient have a Durable POA for Healthcare: No - Code Status/Comfort Care Code Status: Full Code Critical Care: No Time Spent Managing Pts Care (In Minutes): 55
[2024-06-15 09:36] VITALS: BMI 24.3
--- NOTE | 2024-06-15 10:15 | P.DS ---
Admission Date: 06/15/24 Discharge Date: 06/15/24 Discharge Condition: GOOD Brief History of Present Illness: 68-year-old -[place] male with a past medical history of heart failure,Diabetes, hyperlipidemia, hypertension, presents to the emergency room with hypoglycemia. He reports recently starting insulin, reports hypoglycemia overnight. Blood sugar was 58. He reports seeing Dr. Coleman for heart failure, on Entresto, he denies chest pain, shortness of breath, abdominal pain, dizziness, edema. Plan to admit to obs for hypoglycemia, NSTEMI, elevated troponin. With Dr. Coleman to consult. - Physical Exam General: Alert, In no apparent distress, Oriented x3 HEENT: Atraumatic, Normocephalic Neck: Supple, 2+ carotid pulse no bruit Respiratory: Clear to auscultation bilaterally, Normal air movement Cardiovascular: Normal pulses, Regular rate/rhythm, Normal S1 S2 Capillary refill: <2 Seconds Gastrointestinal: Normal bowel sounds, Soft and benign Musculoskeletal: No clubbing, No swelling Integumentary: No breakdown, No significant lesion Neurological: Normal speech, Normal strength at 5/5 x4 extr, Cranial nerves 3-12 intact Hospital Course: 68-year-old -[place]ian male with a past medical history of heart failure,Diabetes, hyperlipidemia, hypertension, presents to the emergency room with hypoglycemia. He reports recently starting insulin, reports hypoglycemia overnight. Blood sugar was 58. He reports seeing Dr. Coleman for heart failure, on Entresto, he denies chest pain, shortness of breath, abdominal pain, dizziness, edema. Plan to admit to obs for hypoglycemia, NSTEMI, elevated troponin. With Dr. Coleman to consult. Dr. Coleman saw patient in the emergency room, instructed to stop heparin drip, resume home meds can follow-up with him outpatient. Patient instructed to stop insulin, follow-up with [facility] for endocrinology after discharge, verbalized understanding. Discharge medication Instructed resume home meds, however to stop insulin, follow-up with [facility] endocrinology after Assessment NSTEMI, started on heparin drip, Dr. Coleman evaluated patient in the emergency room, discontinued heparin drip resume home medicines after discharge Elevated BNP, resume home medicines after discharge per Dr. Bazan Hypoglycemia, on insulin, instructed to DC insulin after discharge follow-up with endocrinology after discharge Continue home medicines as previously prescribed GOAL: Clear understanding of disease process INSTRUCTIONS: Physician Discharge Instructions: -Follow-up with cardiology -Follow-up with PCP in 1 to 2 weeks -Please call Dr. Zavlaa at [phone] if any questions regarding hospital stay -Please call nursing station at [phone] if any nursing or medication questions -Return to the emergency room if symptoms worsen Diet: ADA, low sodium Activity: Fall precautions Laboratory Data at Discharge: WBC 3.20 thou/uL (4.3-10.9) L 06/15/24 06:18 Hgb 14.0 g/dL (13.6-17.9) 06/15/24 06:18 Hct 42.7 % (39.6-49.0) 06/15/24 06:18 Plt Count 210 thou/uL (152-406) 06/15/24 06:18 PT 10.3 SECONDS (9.4-12.5) 06/15/24 06:18 INR 0.92 06/15/24 06:18 Sodium 139 mEq/L (136-145) 06/15/24 06:18 Potassium 4.2 mEq/L (3.5-5.1) 06/15/24 06:18 BUN 38 mg/dL (7-18) H 06/15/24 06:18 Creatinine 1.72 mg/dL (0.70-1.30) H 06/15/24 06:18 Glucose 92 mg/dL (74-106) 06/15/24 06:18 Magnesium 2.4 mg/dL (1.6-2.4) 06/15/24 06:18 Total Bilirubin 0.3 mg/dL (0.2-1.0) 06/15/24 06:18 AST 43 U/L (15-37) H 06/15/24 06:18 ALT 52 U/L (16-61) 06/15/24 06:18 Alkaline Phosphatase 131 U/L (45-117) H 06/15/24 06:18 Home Medications: Atorvastatin Calcium [Lipitor*] 20 mg PO DAILY 06/16/23 Empagliflozin [Jardiance] 25 mg PO DAILY 06/16/23 Sitagliptin Phosphate [Januvia] 100 mg PO DAILY 06/16/23 Aspirin 81 mg PO DAILY #30 tab.chew 06/18/23 Aspirin [Aspirin EC 81 MG] 81 mg PO DAILY #30 tab 06/18/23 Furosemide [Lasix] 20 mg PO BIDL #60 tab 06/18/23 Midodrine HCl [Proamatine*] 5 mg PO TID #90 tab 06/18/23 Potassium Chloride 10 meq PO DAILY #30 tab 06/18/23 Sacubitril/Valsartan [Entresto 24 mg-26 mg Tablet] 0.5 tab PO BID #30 tab 06/18/23 Physician Discharge Instructions: 68-year-old -E[place]ian male with a past medical history of heart failure,Diabetes, hyperlipidemia, hypertension, presents to the emergency room with hypoglycemia. He reports recently starting insulin, reports hypoglycemia overnight. Blood sugar was 58. He reports seeing Dr. Coleman for heart failure, on Entresto, he denies chest pain, shortness of breath, abdominal pain, dizziness, edema. Plan to admit to obs for hypoglycemia, NSTEMI, elevated troponin. With Dr. Coleman to consult. Dr. Coleman saw patient in the emergency room, instructed to stop heparin drip, resume home meds can follow-up with him outpatient. Patient instructed to stop insulin, follow-up with [facility] for endocrinology after discharge, verbalized understanding. Discharge medication Instructed resume home meds, however to stop insulin, follow-up with [facility] endocrinology after Assessment NSTEMI, started on heparin drip, Elevated BNP, Hypoglycemia, on insulin, Continue home medicines as previously prescribed GOAL: Clear understanding of disease process INSTRUCTIONS: Physician Discharge Instructions: -Follow-up with cardiology -Follow-up with PCP in 1 to 2 weeks -Please call Dr. Zavala at [phone] if any questions regarding hospital stay -Please call nursing station at [phone] if any nursing or medication questions -Return to the emergency room if symptoms worsen Diet: ADA, low sodium Activity: Fall precautions Diet: Low sodium Activity: Fall precautions Followup: OOT,OOT [Primary Care Provider] - Leon Coleman MD [ACTIVE - CAN ADMIT] - Chance Wynn MD [OUTSIDE PHYSICIAN] - Time spent managing pt's care (in minutes): 45
--- NOTE | 2024-06-15 10:35 | CON ---
Date of Consultation: 06/15/2024 Reason For Consultation: Elevated troponin. History Of Present Illness: This is a 68-year-old male very well known to me. He has significant sy stolic heart failure that is nonischemic, status post coronary angiogram a year ago with mild coronar y artery disease, presented because of hypoglycemia episodes. His sugar has been running low ___ insulin was started recently. Denies having any chest pain or shortness of breath. The blood wo rk was done in the emergency room with troponin was 91, so I was called in for consultation. Saw him by bedside. He has no cardiac symptoms. He feels very well after the hypoglycemia episode was lilian ected. Past Medical History: 1.CHF. 2.Mild coronary artery disease. 3.Diabetes. 4.Chronic kidney disease. 5.Hypertension. Medications: Refer to reconciliation sheet for detailed list. Allergies: NO KNOWN DRUG ALLERGIES. Family History: No premature coronary artery disease or cancer. Social History: He does not smoke or drink. Does not use any drugs. Review of Systems: All systems reviewed and they were negative except what was mentioned in the HPI. Laboratory Data: BUN 38, creatinine 1.72. Troponin is 91. NT-proBNP is 8762. Assessment And Recommendations: 1.Elevated troponin. This is demand. He has very mild coronary artery disease. No need for IV hep dipak, to discontinue it, and no need for further troponin checks. From Cardiology standpoint, earl gu can be released and follow up as an outpatient. 2.Congestive heart failure, systolic. Appears to be euvolemic. Low-salt diet, and continue home me dications. 3.Hypoglycemia. Recommend to stop insulin. 4.Chronic kidney disease, and creatinine is stable. Case was discussed with the primary hospitalist. /GEREMIAS Voice ID: [id number] Report ID: [id number]
[2024-06-15] MEDS: INSULIN REGULAR (HUMAN) 100 UNIT/ML SQ SCH (11:30)
[2024-06-15 15:25] VITALS: TEMP 97.2
[2024-06-15 15:27] VITALS: O2SAT 98
[2024-06-15 15:28] VITALS: BP 97/70
--- NOTE | 2024-06-18 10:21 | EKG ---
Test Date: 2024-06-15 Test Time: 06:14:22 Supervisor Painting: AF MEASUREMENT RESULTS: Intervals: Rate: 90 IL: 174 QRSD: 82 QT: 402 QTc: 491 [place]: P: 66 IL: 174 QRS: 48 T: 102 INTERPRETIVE STATEMENTS: Normal sinus rhythm Nonspecific T wave abnormality Prolonged QT Abnormal ECG Compared to ECG 06/15/2023 18:31:59 T-wave abnormality now present Prolonged QT interval now present Right-axis deviation no longer present ST (T wave) deviation no longer present Electronically Signed On 06-18-24 10:20:09 [id number] ANALYST by Werner Flores
== END | disposition home or self-care (01) ==
LOC: ER 05:51 → ERHOLD 08:34 → UNDOADMOB 08:34 → INTOOBSV 08:34
DX: I21.4 Non-ST elevation (NSTEMI) myocardial infarction (principal); I50.20 Unspecified systolic (congestive) heart failure; E11.649 Type 2 diabetes mellitus with hypoglycemia without coma; E78.00 Pure hypercholesterolemia, unspecified; I10 Essential (primary) hypertension; N18.9 Chronic kidney disease, unspecified; Z79.82 Long term (current) use of aspirin; Z79.4 Long term (current) use of insulin
CPT/HCPCS: 93005; 85025; 80048; 36415; 83735; 85610; 82947 ×4; 80076; 84484 ×2; 83880; 71045; J1644; J7030; 96361; 96365; 96366; 99285

== ENCOUNTER 2025-04-07 14:35 | Emergency (ER) | payer OTHER ==
[2025-04-07 15:31] LABS: Absolute Lymphocytes (CBC) 0.6 K/uL (0.7-4.9); Hematocrit 38.6 % (39.6-49.0); Hemoglobin 12.4 g/dL (13.6-17.9); MCH 28.3 pg (27.0-35.0); MCHC 32.2 g/dL (32.0-36.0); MCV 88.0 fL (80-100); MPV 8.5 fL (7.6-11.3); Nucleated RBC Absolute Count 0.0 (0-0); Nucleated Red Blood Cells % 0.1 % (0-0); RBC Red Blood Cell Count 4.38 M/uL (4.33-5.43); White Blood Count 4.00 thou/uL (4.3-10.9)
[2025-04-07 15:45] LABS: ALT/SGPT 35.0 U/L (16-61); AST/SGOT 24.0 U/L (15-37); Albumin 2.5 g/dL (3.4-5.0); Albumin/Globulin Ratio 1.0 (1.1-1.8); Alkaline Phosphatase 119.0 U/L (45-117); Anion Gap 10.6 mEq/L (5.0-15.0); BUN Blood Urea Nitrogen 51.0 mg/dL (7-18); Globulin 2.6 g/dL (2.3-3.5); Glucose Level 303.0 mg/dL (74-106); Lipase 82.0 U/L (13-75); Potassium 4.6 mEq/L (3.5-5.1)
[2025-04-07] MEDS ORDERED: KETOROLAC 30 MG/ML INJ ONE (16:03)
[2025-04-07] MEDS ORDERED: INSULIN REGULAR (HUMAN) 100 UNIT/ML ONE (16:04)
[2025-04-07 16:24] LABS: Sqamous Epithelial <5 /HPF (None Seen); Urine Culture Reflex Order REFLEXED; Urine Microscopic Reflex YN ORDER UMIC
--- NOTE | 2025-04-07 17:10 | RAD REPORT ---
EXAMINATION: Abdomen Pelvis W Contrast CLINICAL INDICATION: Male, 69 years old.right inguinal pain TECHNIQUE: CT abdomen and pelvis was performed, after the administration of IV contrast, as per [facility] protocol. Axial, sagittal and coronal reconstructions were obtained. One or more of the following dose reduction techniques were used: Automated exposure control, adjustment of the mA and/o r kV according to patient size, and/or iterative reconstruction. Unless otherwise specified, incidental findings do not require dedicated imaging follow-up. [id number]. COMPARISON: No prior exams FINDINGS: LOWER CHEST: Bilateral pleural effusions and associated atelectasis.Moderate cardiomegaly. Mild circu mferential thickening of the distal esophagus which could reflect esophagitis. UPPER GI: No significant abnormality. LIVER: No significant focal abnormality. GALLBLADDER/BILE DUCTS: No biliary ductal dilatation.? PANCREAS: No mass, ductal dilation, or truman-pancreatic fluid. SPLEEN: Unremarkable. ADRENALS: No adrenal masses. KIDNEYS AND URETERS: No hydronephrosis.No suspicious renal mass.Nonobstructing renal calculi.No urete ral calculi. ABDOMINAL AORTA AND OTHER VESSELS: Moderate atherosclerotic changes without aortic aneurysm. PERITONEUM: No abnormal free fluid. No free air. LYMPH NODES: No pathologic lymphadenopathy. ABDOMINAL WALL: Body wall edema. SMALL BOWEL/COLON: Small bowel has normal course and caliber. No colonic wall thickening or pericolon ic inflammatory changes.Normal appendix. Mild diverticulosis without diverticulitis. Moderate formed stool burden. URINARY BLADDER: Nonspecific circumferential bladder wall thickening. REPRODUCTIVE ORGANS: No pathologic process. MUSCULOSKELETAL: No acute or suspicious osseous abnormality. Left hip arthroplasty. ADDITIONAL FINDINGS: None. IMPRESSION: No acute findings within the abdomen or pelvis. Anasarca including small bilateral effusions and poss ible pulmonary edema.
[2025-04-07] MEDS ORDERED: CEFTRIAXONE 1000 MG/VIAL ONE (17:43)
[2025-04-07] MEDS ORDERED: NA CHLORIDE 0.9% 100 ML ONE (17:44)
--- NOTE | 2025-04-07 18:28 | EDPHYS ---
Physician Documentation [facility] Name: Willy Yoo Age: 69 yrs Sex: Male : 1955 Arrival Date: 04/07/2025 Time: 14:35 Bed 18 Private MD: ED Physician Nicolas Jarquin HPI: 04/07 15:05 This 69 yrs old Black Male presents to ER via Ambulatory with complaints of Pelvic cp Problem. 15:05 The patient presents with tenderness, of the right suprapubic area, intermittent cp swelling, pain. 15:05 Onset: The symptoms/episode began/occurred 4 day(s) ago. cp 15:05 Modifying factors: the symptoms are aggravated by heavy lifting and pulling. Associated cp signs and symptoms: Pertinent negatives: abdominal pain, constipation, diarrhea, fever, hematuria, vomiting, chest pain, shortness of breath. Severity of symptoms: in the emergency department the symptoms have improved, markedly. Historical: - Allergies: 14:59 No Known Allergies; hb - Home Meds: 14:59 Lasix 40 mg oral tablet daily [Active]; atorvastatin 80 mg oral tablet daily [Active]; hb Jardiance 25 mg oral tablet daily [Active]; sacubitril-valsartan 24-26 mg oral tablet 2 times per day [Active]; Ozempic subcutaneous every week [Active]; midodrine 5 mg Oral tablet [Active]; Verquvo 5 mg oral tablet daily [Active]; - PMHx: 14:59 diabetes mellitus; High Cholesterol; low blood pressure (2023); hb - Immunization history:: Adult Immunizations up to date. - Infectious Disease History:: Denies. - Social history:: Smoking status: Patient denies any tobacco usage or history of. ROS: 15:10 Constitutional: Negative for body aches, chills, fever, poor PO intake, cp 15:10 Abdomen/GI: Negative for abdominal pain, nausea, vomiting, and diarrhea, cp 15:10 : Positive for of the right suprapubic area, pain, tenderness, intermittent swelling, Negative for urinary symptoms, hematuria, flank pain, difficulty urinating, penile pain, testicular pain 15:10 Eyes: Negative for injury, pain, redness, and discharge, cp 15:10 ENT: Negative for drainage from ear(s), ear pain, sore throat, difficulty swallowing, cp difficulty handling secretions, 15:10 Cardiovascular: Negative for chest pain, palpitations, 15:10 Respiratory: Negative for cough, shortness of breath, wheezing, 15:10 Back: Negative for pain at rest, pain with movement, 15:10 Neuro: Negative for altered mental status, headache, numbness, weakness, 15:10 All other systems are negative, Exam: 15:15 Constitutional: The patient appears in no acute distress, alert, awake, cp non-diaphoretic, non-toxic, well developed, well nourished, 15:15 Head/Face: Normocephalic, atraumatic. cp 15:15 Eyes: Periorbital structures: appear normal, Conjunctiva: normal, no exudate, no injection, Sclera: no appreciated abnormality, Lids and lashes: appear normal, bilaterally, 15:15 ENT: External ear(s): are unremarkable, Nose: is normal, Mouth: Lips: moist, Oral mucosa: moist, Posterior pharynx: Airway: no evidence of obstruction, patent, 15:15 Chest/axilla: Inspection: normal, 15:15 Cardiovascular: Rate: normal, Rhythm: regular, Edema: ankle edema, that is mild, JVD: is not appreciated, 15:15 Respiratory: the patient does not display signs of respiratory distress, Respirations: normal, no use of accessory muscles, no retractions, labored breathing, is not present, Breath sounds: are clear throughout, no decreased breath sounds, no stridor, no wheezing, 15:15 Abdomen/GI: Inspection: abdomen appears normal, exam of right suprapubic area is negative for swelling, protruding hernia. mild tenderness to area, 15:15 Back: pain, is absent, ROM is normal, Vital Signs: 14:58 BP 114 / 58; Pulse 88; Resp 15; Temp 97.7; Pulse Ox 99% on R/A; hb 15:00 BP 98 / 69; Pulse 87; Resp 16; Pulse Ox 98% ; me1 16:00 BP 98 / 68; Pulse 89; Resp 15; Pulse Ox 100% ; me1 17:00 BP 98 / 69; Pulse 86; Resp 16; Pulse Ox 100% ; me1 18:00 BP 93 / 67; Pulse 79; Resp 16; Temp 98.3; Pulse Ox 100% ; me1 MDM: 14:53 Medical Screening Exam initiated 15:45 Differential diagnosis: nonspecific abdominal pain, appendicitis, UTI, urinary cp retention, Ken catheter problem, prostatitis, urethritis, incarcerated hernia. 18:28 Data reviewed: vital signs, nurses notes, lab test result(s), radiologic studies, CT cp scan, and as a result, I will discharge patient. 18:28 I considered the following discharge prescriptions or medication management in the emergency department Medications were administered in the Emergency Department. See MAR. Care significantly affected by the following chronic conditions: Diabetes, Congestive Heart Failure. Counseling: I had a detailed discussion with the patient and/or guardian regarding the historical points, exam findings, and any diagnostic results supporting the discharge/admit diagnosis, lab results, radiology results, the need for outpatient follow up, for definitive care, a family practitioner, a general surgeon, to return to the emergency department if symptoms worsen or persist or if there are any questions or concerns that arise at home. Response to treatment: the patient's symptoms have mildly improved after treatment, and as a result, I will discharge patient. 04/07 15:02 Order name: CBC with Diff; Complete Time: 15:46 cp 04/07 15:02 Order name: CMP; Complete Time: 15:46 cp 04/07 15:46 Interpretation: Normal except: CL 108; GLUC 303; BUN 51; CRE 1.36; GFR 56; ALK 119; TP cp 5.1; ALB 2.5; A/G 1.0. 04/07 15:02 Order name: Lipase; Complete Time: 15:46 cp 04/07 15:02 Order name: UA Rfx Beto Cult if indicated; Complete Time: 17:29 04/07 17:29 Interpretation: Normal except: [facility] Extremely Turbid; UGLUC 4+ (Over); UESTR 500; UWBC cp >50; URBC 21-50. 04/07 16:29 Order name: Urine Culture EDMS 04/07 15:02 Order name: CT Abd/Pelvis - IV Contrast Only; Complete Time: 17:29 cp 04/07 15:02 Order name: IV Saline Lock; Complete Time: 15:19 cp 04/07 15:02 Order name: Labs collected and sent; Complete Time: 15:19 cp Administered Medications: 16:13 Drug: Insulin Regular Human Sub-Q 5 units Sub-Q once {Co-Signature: me1 (jose Ceron RN).} Route: Sub-Q; Site: abdomen; 17:43 Follow up: Response: No adverse reaction me1 16:13 Drug: Ketorolac IVP 10 mg 10 mg IVP once Route: IVP; Site: right antecubital; me1 17:42 Follow up: Response: No adverse reaction; Pain is decreased me1 17:50 Drug: Rocephin IV 1 grams IV at calculated rate once; Given slow IV push per pharmacy me1 instructions Route: IV; Rate: calculated rate; Site: right forearm; 18:16 Follow up: Response: No adverse reaction; IV Status: Completed infusion me1 Disposition: 18:44 Co-signature as Attending Physician, Nicolas Jarqiun MD I reviewed the patient's care rn provided by the Advanced Practice Provider and agree with the diagnosis and treatment plan. Disposition Summary: 04/07/25 18:28 Discharge Ordered Notes: Location: Home cp Problem: new cp Symptoms: have improved cp Condition: Stable cp Diagnosis - UTI/ Urinary tract infection, site not specified cp - Unilateral inguinal hernia, without obstruction or gangrene cp Followup: cp - With: Jairo Vanessa MD - When: 2 - 3 days - Reason: evaluation of hernia Discharge Instructions: - Discharge Summary Sheet cp - Urinary Tract Infection, Adult cp - Inguinal Hernia, Adult cp - Laparoscopic Inguinal Hernia Repair, Adult cp Forms: - Medication Reconciliation Form cp - Antibiotic Education cp - Prescription Opioid Use cp - Patient Portal Instructions cp - Leadership Thank You Letter cp - Work release form me1 Prescriptions: - cefpodoxime 200 mg Oral tablet - take 1 tablet ORAL route every 12 hours for 7 days with food; 14 tablet; cp Refills: 0, Product Selection Permitted Signatures: Dispatcher [employer] EDNicolas Levine MD MD rn Page, Corey, PA-C PA-C cp Anaya Whitfield RN RN Libby Ceron RN RN me1 Libby Ceron RN me1 Corrections: (The following items were deleted from the chart) 15:02 15:02 CBC+H.LAB.BRZ ordered. EDMS EDMS 15:02 15:02 COMPREHENSIVE METABOLIC PANEL+C.LAB.BRZ ordered. EDMS EDMS 15:02 15:02 LIPASE+C.LAB.BRZ ordered. EDMS EDMS 15:02 15:02 UA Rfx Beto Cult if indicated+U.LAB.BRZ ordered. EDMS EDMS 15:02 15:02 Abdomen Pelvis W Con+CT.RAD.BRZ ordered. EDMS EDMS
--- NOTE | 2025-04-07 18:28 | ER ---
Nurse's Notes [facility] Name: Willy Yoo Age: 69 yrs Sex: Male : 1955 Arrival Date: 04/07/2025 Time: 14:35 Bed 18 Private MD: Diagnosis: UTI/ Urinary tract infection, site not specified;Unilateral inguinal hernia, without obstruction or gangrene Presentation: 04/07 14:58 Chief complaint: Intermittent lower abdominal pain and swelling x 4 days. Coronavirus hb screen: At this time, the client does not indicate any symptoms associated with coronavirus-19. Ebola Screen: No symptoms or risks identified at this time. Onset of symptoms was April 03, 2025. 14:58 Method Of Arrival: Ambulatory hb 14:58 Acuity: JARAD 3 hb 15:00 Initial Sepsis Screen: Does the patient meet any 2 criteria? No. Patient's initial me1 sepsis screen is negative. Does the patient have a suspected source of infection? No. Patient's initial sepsis screen is negative. Risk Assessment: Do you want to hurt yourself or someone else? Patient reports no desire to harm self or others. Triage Assessment: 15:00 General: Appears uncomfortable, well groomed, well developed, well nourished, Behavior me1 is calm, cooperative, appropriate for age, Reports Intermittent lower abdominal pain and swelling x 4 days. Pain: Complains of pain in right femoral area Pain does not radiate. Pain currently is 6 out of 10 on a pain scale. Quality of pain is described as sharp, Pain began gradually, Is intermittent. EENT: No signs and/or symptoms were reported regarding the EENT system. Neuro: Level of Consciousness is awake, alert, obeys commands, Oriented to person, place, time, situation, Appropriate for age. Cardiovascular: Patient's skin is warm and dry. Respiratory: Airway is patent Respiratory effort is even, unlabored, Respiratory pattern is regular, symmetrical. GI: Abdomen is non-distended, Reports lower abdominal pain. : No signs and/or symptoms were reported regarding the genitourinary system. Derm: Skin is intact, is healthy with good turgor, Skin is normal. Musculoskeletal: Circulation, motion, and sensation intact. Range of motion: intact in all extremities. Historical: - Allergies: 14:59 No Known Allergies; hb - Home Meds: 14:59 Lasix 40 mg oral tablet daily [Active]; atorvastatin 80 mg oral tablet daily [Active]; hb Jardiance 25 mg oral tablet daily [Active]; sacubitril-valsartan 24-26 mg oral tablet 2 times per day [Active]; Ozempic subcutaneous every week [Active]; midodrine 5 mg Oral tablet [Active]; Verquvo 5 mg oral tablet daily [Active]; - PMHx: 14:59 diabetes mellitus; High Cholesterol; low blood pressure (2023); hb - Immunization history:: Adult Immunizations up to date. - Infectious Disease History:: Denies. - Social history:: Smoking status: Patient denies any tobacco usage or history of. Screenin:00 [facility] ED Fall Risk Assessment (Adult) History of falling in the last 3 months, me1 including since admission No falls in past 3 months (0 pts) Confusion or Disorientation No (0 pts) Intoxicated or Sedated No (0 pts) Impaired Gait No (0 pts) Mobility Assist Device Used No (0 pt) Altered Elimination No (0 pt) Score/Fall Risk Level 0 - 2 = Low Risk Maintained a safe environment, Provided non-skid footwear, Hourly rounding (assess needs \T\ fall precautionary measures) done. Abuse screen: Denies threats or abuse. Nutritional screening: No deficits noted. Tuberculosis screening: No symptoms or risk factors identified. Assessment: 15:00 General: See triage assessment. me1 Vital Signs: 14:58 BP 114 / 58; Pulse 88; Resp 15; Temp 97.7; Pulse Ox 99% on R/A; hb 15:00 BP 98 / 69; Pulse 87; Resp 16; Pulse Ox 98% ; me1 16:00 BP 98 / 68; Pulse 89; Resp 15; Pulse Ox 100% ; me1 17:00 BP 98 / 69; Pulse 86; Resp 16; Pulse Ox 100% ; me1 18:00 BP 93 / 67; Pulse 79; Resp 16; Temp 98.3; Pulse Ox 100% ; me1 ED Course: 14:42 Patient arrived in ED. mr 14:47 Ugo Duque PA-C is PHCP. cp 14:47 Nicolas Jarquin MD is Attending Physician. cp 14:59 Triage completed. hb 15:00 No provider procedures requiring assistance completed. me1 15:00 Arm band placed on Patient placed in an exam room. me1 15:00 Patient has correct armband on for positive identification. Bed in low position. Call me1 light in reach. Side rails up X2. Provided Education on: POC. Verbalized understanding.. Client placed on continuous cardiac and pulse oximetry monitoring. NIBP monitoring applied. Pulse ox on. NIBP on. 15:11 Libby Ceron, RN is Primary Nurse. me1 15:19 Initial lab(s) drawn, by me, sent to lab. Inserted saline lock: 20 gauge in right wy1 antecubital area, using aseptic technique. 15:19 CBC with Diff Sent. me1 15:19 CMP Sent. me1 15:19 Lipase Sent. me1 16:51 CT Abd/Pelvis - IV Contrast Only In Process Unspecified. [facility] 18:25 Jairo Vanessa MD is Referral Physician. cp 18:40 IV discontinued, intact, bleeding controlled, No redness/swelling at site. Pressure me1 dressing applied. Administered Medications: 16:13 Drug: Insulin Regular Human Sub-Q 5 units Sub-Q once {Co-Signature: me1 (jose Ceron RN).} Route: Sub-Q; Site: abdomen; 17:43 Follow up: Response: No adverse reaction me1 16:13 Drug: Ketorolac IVP 10 mg 10 mg IVP once Route: IVP; Site: right antecubital; me1 17:42 Follow up: Response: No adverse reaction; Pain is decreased me1 17:50 Drug: Rocephin IV 1 grams IV at calculated rate once; Given slow IV push per pharmacy me1 instructions Route: IV; Rate: calculated rate; Site: right forearm; 18:16 Follow up: Response: No adverse reaction; IV Status: Completed infusion me1 Medication: 15:00 VIS not applicable for this client. me1 Outcome: 18:28 Discharge ordered by MD. cp 18:40 Discharged to home ambulatory, me1 18:40 Condition: stable 18:40 Discharge instructions given to patient, Instructed on discharge instructions, follow up and referral plans. medication usage, Demonstrated understanding of instructions, follow-up care, medications, Prescriptions given X 1, 18:41 Patient left the ED. me1 Signatures: Dispatcher [employer] EDPA Aimee Buck, Reg Reg mr Page, ANA M Arizmendi PA-C, cp, Heather, RN RN Libby Ceron RN RN wy1 Libby Ceron RN me1 Corrections: (The following items were deleted from the chart) 16:36 14:58 Chief complaint: Intermittent lower abdominal pain and swelling x 4 days. [facility] 18:31 18:00 BP 93 / 67; Pulse 79bpm; Resp 16bpm; Pulse Ox 100%; me1 me1
[2025-04-07 19:31] VITALS: O2SAT 100
[2025-04-07 19:33] VITALS: BP 93/67; TEMP 98.3
== END 2025-04-07 18:41 | disposition home or self-care (01) ==
LOC: ER 14:35
DX: N39.0 Urinary tract infection, site not specified (principal); K40.90 Unilateral inguinal hernia, without obstruction or gangrene, not specified as recurrent
CPT/HCPCS: 96365; 87088; 85025; 81001; 87086; 36415; 83690; 80053; 74177; 96375; 96372; 99284; Q9967; J1815; J0696

== ENCOUNTER 2025-04-16 11:44 | Inpatient (IN) | payer OTHER ==
[2025-04-16] MEDS ORDERED: FUROSEMIDE 20 MG/ 2ML VIAL ONE (12:14)
[2025-04-16] MEDS ORDERED: NA CHLORIDE 0.9% 250 ML ONE ×2 (13:07→13:20)
[2025-04-16 13:18] LABS: Anion Gap 7.7 mEq/L (5.0-15.0); BUN Blood Urea Nitrogen 51.0 mg/dL (7-18); Glucose Level 203.0 mg/dL (74-106); Potassium 4.7 mEq/L (3.5-5.1)
[2025-04-16 13:30] LABS: Absolute Lymphocytes (CBC) 0.7 K/uL (0.7-4.9); Hematocrit 41.5 % (39.6-49.0); Hemoglobin 13.4 g/dL (13.6-17.9); MCH 28.6 pg (27.0-35.0); MCHC 32.3 g/dL (32.0-36.0); MCV 88.6 fL (80-100); MPV 9.5 fL (7.6-11.3); Nucleated RBC Absolute Count 0.0 (0-0); Nucleated Red Blood Cells % 0.1 % (0-0); RBC Red Blood Cell Count 4.68 M/uL (4.33-5.43); White Blood Count 3.80 thou/uL (4.3-10.9)
--- NOTE | 2025-04-16 13:42 | ER ---
Nurse's Notes [facility] Name: Willy Yoo Age: 69 yrs Sex: Male : 1955 Arrival Date: 04/16/2025 Time: 11:44 Bed 7 Private MD: Diagnosis: Heart failure, unspecified;Pedal Edema Presentation: 04/16 11:57 Chief complaint: Patient states: they are prepping me for hernia surgery and they sent iw me here for cardiac clearance. Coronavirus screen: At this time, the client does not indicate any symptoms associated with coronavirus-19. Ebola Screen: No symptoms or risks identified at this time. Initial Sepsis Screen: Does the patient meet any 2 criteria? No. Patient's initial sepsis screen is negative. Does the patient have a suspected source of infection? No. Patient's initial sepsis screen is negative. Risk Assessment: Do you want to hurt yourself or someone else? Patient reports no desire to harm self or others. Onset of symptoms was April 16, 2025. 11:57 Method Of Arrival: Ambulatory iw 11:59 Acuity: JARAD 3 iw Triage Assessment: 12:00 General: Appears in no apparent distress. comfortable, Behavior is calm, cooperative, bp appropriate for age. Pain: Denies pain. EENT: No deficits noted. Neuro: No deficits noted. Cardiovascular: Rhythm is sinus rhythm. Respiratory: No deficits noted. GI: No signs and/or symptoms were reported involving the gastrointestinal system. : No signs and/or symptoms were reported regarding the genitourinary system. Derm: No deficits noted. Musculoskeletal: Swelling present in right foot and left foot. Historical: - Allergies: 12:00 No Known Allergies; iw - PMHx: 12:00 diabetes mellitus; High Cholesterol; low blood pressure (2023); iw - PSHx: 12:00 left hip; iw - Immunization history:: Adult Immunizations up to date. - Infectious Disease History:: Denies. - Social history:: Smoking status: Patient denies any tobacco usage or history of. Screenin:00 [facility] ED Fall Risk Assessment (Adult) History of falling in the last 3 months, bp including since admission No falls in past 3 months (0 pts) Confusion or Disorientation No (0 pts) Intoxicated or Sedated No (0 pts) Impaired Gait No (0 pts) Mobility Assist Device Used No (0 pt) Altered Elimination No (0 pt) Score/Fall Risk Level 0 - 2 = Low Risk Oriented to surroundings. 12:00 Abuse screen: Denies threats or abuse. Denies injuries from another. Nutritional bp screening: No deficits noted. Tuberculosis screening: No symptoms or risk factors identified. Assessment: 14:58 Reassessment: REPORT SENT TO 2ND FLOOR. bp 15:15 Reassessment: Patient appears in no apparent distress at this time. Patient and/or jb4 family updated on plan of care and expected duration. Pain level reassessed. Patient is alert, oriented x 3, equal unlabored respirations, skin warm/dry/pink. 16:02 Reassessment: Patient appears in no apparent distress at this time. Patient and/or jb4 family updated on plan of care and expected duration. Pain level reassessed. Patient is alert, oriented x 3, equal unlabored respirations, skin warm/dry/pink. Vital Signs: 09:00 BP 136 / 83; Pulse 60; Resp 18; Pulse Ox 96% on R/A; ab3 10:00 BP 169 / 101; Pulse 88; Resp 20; Pulse Ox 95% on R/A; ab3 11:59 BP 92 / 69; Pulse 80; Resp 16; Temp 97; Pulse Ox 100% on R/A; Weight 83.91 kg; Height 5 iw ft. 10 in. ; Pain 5/10; 12:45 BP 100 / 74; Pulse 79; Resp 16; Pulse Ox 100% on R/A; ab3 13:00 BP 85 / 41; Pulse 79; Resp 18; Pulse Ox 100% on R/A; ab3 13:03 BP 86 / 56; Pulse 74; Resp 18; Pulse Ox 98% ; ab3 13:29 BP 92 / 65; Pulse 85; Resp 18; Pulse Ox 97% on R/A; ab3 14:59 BP 88 / 67; Pulse 72; Resp 16; Pulse Ox 100% ; bp 11:59 Body Mass Index 26.54 (83.91 kg, 177.8 cm) iw 11:59 Pain Scale: Adult iw 13:00 HOB lowered; RN to adjust cuff, retake BP and notify MD if remains hypotensive ab3 13:03 Dr. Gooden Notified; to order IV bolus ab3 ED Course: 11:49 Patient arrived in ED. al6 11:59 Triage completed. iw 12:00 Patient has correct armband on for positive identification. bp 12:01 Arm band placed on. iw 12:04 Leonardo Choi DO is Attending Physician. ms3 12:08 Frank Atkinson, RN is Primary Nurse. bp 12:22 Initial lab(s) drawn, by me, sent to lab. Inserted saline lock: 22 gauge in right bp forearm, using aseptic technique. Blood collected. Flushed with 10 mL NS. 13:41 June Zavala MD is Hospitalizing Provider. ms3 16:02 Provided Education on: plan of care. jb4 16:02 No provider procedures requiring assistance completed. Patient admitted, IV remains in jb4 place. Administered Medications: 12:21 Drug: Furosemide IVP 20 mg IVP once; give over 2 minutes Route: IVP; Site: right bp forearm; 15:02 Follow up: Response: No adverse reaction bp 13:07 Drug: NS 0.9% IV 250 ml IV at bolus once; to be given as a bolus over 30 minutes Route: ab3 IV; Rate: bolus; Infused Over: 30 mins; Site: right forearm; Delivery: Primary tubing; 15:49 Drug: midodrine 5 mg PO once Route: PO; jb4 Medication: 14:59 VIS not applicable for this client. bp Outcome: 13:42 Decision to Hospitalize by Provider. ms3 16:02 Admitted to Med/surg accompanied by tech, via stretcher, room 219, with chart, jb4 16:02 Condition: stable 16:02 Discharge instructions given to patient, Instructed on the need for admit, Demonstrated understanding of instructions, 16:03 Patient left the ED. jb4 Signatures: Joann Delaney, RN LEELEE Cyrus Wright, RN RN jb4 Frank Atkinson, RN RN bp Leonardo Choi DO DO ms3 Bella Hodges, RN RN ab3 Renee Montenegro al6 Corrections: (The following items were deleted from the chart) 12:00 11:59 Pulse 80bpm; Resp 16bpm; Pulse Ox 100% RA; Temp 97F; iw iw 12:00 12:00 PSHx: None; iw iw
--- NOTE | 2025-04-16 13:42 | EDPHYS ---
Physician Documentation [facility] Name: Willy Yoo Age: 69 yrs Sex: Male : 1955 Arrival Date: 04/16/2025 Time: 11:44 Bed 7 Private MD: ED Physician Leonardo Choi HPI: 04/16 18:12 This 69 yrs old Black Male presents to ER via Ambulatory with complaints of sent by ms3 raslan. 18:12 69-year-old male with past medical history of diabetes, hyperlipidemia, low blood ms3 pressure, heart failure presents to the emergency department from Dr. Oh's office for edema. Patient denies pain, shortness of breath, nausea, vomiting. Historical: - Allergies: 12:00 No Known Allergies; iw - PMHx: 12:00 diabetes mellitus; High Cholesterol; low blood pressure (2023); iw - PSHx: 12:00 left hip; iw - Immunization history:: Adult Immunizations up to date. - Infectious Disease History:: Denies. - Social history:: Smoking status: Patient denies any tobacco usage or history of. ROS: 18:12 Constitutional: Negative for fever, and chills. Cardiovascular: Negative for chest ms3 pain, and palpitations. Respiratory: Negative for shortness of breath, cough, wheezing, and pleuritic chest pain, Abdomen/GI: Negative for abdominal pain, nausea, vomiting, diarrhea, and constipation, Skin: Negative for injury, rash, and discoloration, 18:12 MS/extremity: Positive for Bilateral lower extremity edema, Exam: 18:12 Constitutional: This is a well developed, well nourished patient who is awake, alert, ms3 and in no acute distress. Cardiovascular: Regular rate and rhythm with a normal S1 and S2. No gallops, murmurs, or rubs. Normal PMI, no JVD. No pulse deficits. Respiratory: Lungs have equal breath sounds bilaterally, clear to auscultation and percussion. No rales, rhonchi or wheezes noted. No increased work of breathing, no retractions or nasal flaring. Abdomen/GI: Soft, non-tender, with normal bowel sounds. No distension or tympany. No guarding or rebound. No evidence of tenderness throughout. Skin: Warm, dry with normal turgor. Normal color with no rashes, no lesions, and no evidence of cellulitis. 18:12 Cardiovascular: Edema: 4+ edema to level of left foot and right foot, 18:12 Musculoskeletal/extremity: Extremities: Vital Signs: 09:00 BP 136 / 83; Pulse 60; Resp 18; Pulse Ox 96% on R/A; ab3 10:00 BP 169 / 101; Pulse 88; Resp 20; Pulse Ox 95% on R/A; ab3 11:59 BP 92 / 69; Pulse 80; Resp 16; Temp 97; Pulse Ox 100% on R/A; Weight 83.91 kg; Height 5 iw ft. 10 in. ; Pain 5/10; 12:45 BP 100 / 74; Pulse 79; Resp 16; Pulse Ox 100% on R/A; ab3 13:00 BP 85 / 41; Pulse 79; Resp 18; Pulse Ox 100% on R/A; ab3 13:03 BP 86 / 56; Pulse 74; Resp 18; Pulse Ox 98% ; ab3 13:29 BP 92 / 65; Pulse 85; Resp 18; Pulse Ox 97% on R/A; ab3 14:59 BP 88 / 67; Pulse 72; Resp 16; Pulse Ox 100% ; bp 11:59 Body Mass Index 26.54 (83.91 kg, 177.8 cm) iw 11:59 Pain Scale: Adult iw 13:00 HOB lowered; RN to adjust cuff, retake BP and notify MD if remains hypotensive ab3 13:03 Dr. Gooden Notified; to order IV bolus ab3 MDM: 12:11 Medical Screening Exam initiated ms3 18:12 Differential diagnosis: Heart failure versus pedal edema versus electrolyte abnormality ms3 versus hypotension. Data reviewed: vital signs, nurses notes, lab test result(s), and as a result, I will admit patient. Consideration of Admission/Observation Patient was admitted/placed on observation. Management of patient was discussed with the following: Hospitalist: Julian on behalf of Dr Zavala. Management of patient was discussed with the following: Ict Security Specialist: Dr Coleman- Would like patient admitted, 20 mg IV Lasix BID. No need for troponin or EKG to be performed. . I considered the following discharge prescriptions or medication management in the emergency department Medications were administered in the Emergency Department. See MAR. Counseling: I had a detailed discussion with the patient and/or guardian regarding the historical points, exam findings, and any diagnostic results supporting the discharge/admit diagnosis, lab results, the need for further work-up and treatment in the hospital. ED course: Discussed Dr. Coleman's plan for admission with patient. He understands agrees with plan. All questions were answered.. 04/16 12:05 Order name: CBC with Diff; Complete Time: 13:37 ms3 04/16 12:05 Order name: BMP; Complete Time: 13:37 ms3 04/16 14:45 Order name: CBC with Automated Diff EDMS 04/16 14:45 Order name: CBC with Automated Diff EDMS 04/16 14:45 Order name: CBC with Automated Diff EDMS 04/16 14:45 Order name: CBC with Automated Diff EDMS 04/16 14:45 Order name: Comprehensive Metabolic Panel EDMS 04/16 14:45 Order name: Comprehensive Metabolic Panel EDMS 04/16 14:45 Order name: Comprehensive Metabolic Panel EDMS 04/16 14:45 Order name: Comprehensive Metabolic Panel EDMS 04/16 14:45 Order name: Magnesium EDMS 04/16 14:45 Order name: Magnesium EDMS 04/16 14:45 Order name: Magnesium EDMS 04/16 14:45 Order name: Magnesium EDMS 04/16 12:38 Order name: Labs - recollect needed: recollect green and lavender top; Complete Time: bd 12:52 Administered Medications: 12:21 Drug: Furosemide IVP 20 mg IVP once; give over 2 minutes Route: IVP; Site: right bp forearm; 15:02 Follow up: Response: No adverse reaction bp 13:07 Drug: NS 0.9% IV 250 ml IV at bolus once; to be given as a bolus over 30 minutes Route: ab3 IV; Rate: bolus; Infused Over: 30 mins; Site: right forearm; Delivery: Primary tubing; 15:49 Drug: midodrine 5 mg PO once Route: PO; jb4 Disposition Summary: 04/16/25 13:42 Hospitalization Ordered Notes: Hospitalization Status: Inpatient Admission ms3 Provider: June Zavala ms3 Location: Telemetry/MedSurg (Inpatient) ms3 Condition: Stable ms3 Problem: new ms3 Symptoms: are unchanged ms3 Bed/Room Type: Standard ms3 Room Assignment: 219(04/16/25 14:44) bd Diagnosis - Heart failure, unspecified ms3 - Pedal Edema ms3 Forms: - Medication Reconciliation Form ms3 - SBAR form ms3 - Leadership Thank You Letter ms3 Signatures: Dispatcher [employer] EDMS Rossana Rodgers Joann Carl, RN RN iw Julian Peraza, OFFSHORING MANAGER-C OFFSHORING MANAGER-Cla1 Cyrus Wright, RN RN jb4 Frank Atkinson, RN Leonardo Mcnulty, DO ms3 Bella Hodges RN RN ab3 Corrections: (The following items were deleted from the chart) 12:00 12:00 PSHx: None; iw iw 12:05 12:05 CBC+H.LAB.BRZ ordered. EDMS EDMS 12:05 12:05 BASIC METABOLIC PANEL+C.LAB.BRZ ordered. EDMS EDMS 14:44 13:42 ms3 bd
[2025-04-16] MEDS ORDERED: ACETAMINOPHEN 325 MG TABLET PO PRN (14:42)
--- NOTE | 2025-04-16 14:51 | P.HP ---
Certification for Inpatient Patient admitted to: Inpatient With expected LOS: >2 Midnights Patient will require the following post-hospital care: None Practitioner: I am a practitioner with admitting privileges, knowledge of patient current condition, hospital course, and medical plan of care. Services: Services provided to patient in accordance with Admission requirements found in Title 42 Section 412.3 of the Code of Federal Regulations <Julian Peraza - Last Filed: 04/16/25 14:48> Patient History Date of Service: 04/16/25 Reason for admission: CHF exacerbation History of Present Illness: 69-year-old male with history of chronic systolic congestive heart failure, chronic hypotension, hypertension, [id number] diabetes presents to the emergency department with chief complaint of lower extremity edema. He reported to an outpatient cardiology visit was found to be grossly volume overloaded and referred to the emergency department for diuresis and admission. Patient is in the process of trying to get his right inguinal hernia repaired and was seeking cardiac clearance but is currently overloaded and will need further evaluation from cardiology prior to proceeding. Patient was evaluated here in the emergency department his labs were significant for a creatinine of 1.58 GFR 47. He had an echo at our facility and 2022 which showed reduced LVEF of 25 to 30% with severe global hypokinesis, left atrial enlargement, mild mitral regurgitation, diastolic dysfunction and mild tricuspid regurgitation. He also had a coronary angiogram performed on 06/17/23 which showed mild nonobstructive CAD with elevated LVEDP. Patient readmitted for further evaluation and management of acute on chronic systolic congestive heart failure, volume overload. - Past Medical/Surgical History Diabetic: Yes -: Chronic systolic CHF -: Mild CAD -: Chronic hypotension -: Diabetes mellitus type [id number] Psychosocial/ Personal History: Lives at home with family - Social History Alcohol use: No CD- Drugs: No Caffeine use: Yes Place of Residence: Home <Julian Peraza - Last Filed: 04/16/25 14:48> Date of Service: 04/16/25 - Social History Smoking Status: Current every day smoker <June Zavala - Last Filed: 04/22/25 01:01> Allergies No Known Allergies Allergy (Verified 10/30/20 16:37) Home Medications: Atorvastatin Calcium [Lipitor*] 80 mg PO DAILY 06/16/23 Empagliflozin [Jardiance] 25 mg PO DAILY 06/16/23 Aspirin 81 mg PO DAILY #30 tab.chew 06/18/23 Midodrine HCl [Proamatine*] 5 mg PO TID #90 tab 06/18/23 Potassium Chloride 10 meq PO DAILY #30 tab 06/18/23 Sacubitril/Valsartan [Entresto 24 mg-26 mg Tablet] 0.5 tab PO BID #30 tab 06/18/23 Furosemide [Lasix*] 40 mg PO BIDL 04/16/25 Vericiguat [Verquvo] 5 mg PO DAILY 04/16/25 Apixaban [Eliquis] 5 mg PO BID #60 tab 04/19/25 Metformin ER [Glucophage ER*] 1,000 mg PO DAILY 04/19/25 Midodrine HCl [Proamatine*] 5 mg PO TID #90 tab 04/19/25 Sitagliptin Phosphate [Januvia] 25 mg PO DAILY 04/19/25 Review of Systems 10-point ROS is otherwise unremarkable Cardiovascular: Edema <Julian Peraza - Last Filed: 04/16/25 14:48> Physical Examination - Physical Exam General: Alert, In no apparent distress, Oriented x3 HEENT: Atraumatic, PERRLA, EOMI Neck: Supple, 2+ carotid pulse no bruit, No LAD Respiratory: Clear to auscultation bilaterally, Normal air movement Cardiovascular: Regular rate/rhythm, Normal S1 S2, Edema (3+ pitting edema bilateral lower extremities) Gastrointestinal: Normal bowel sounds, No tenderness Musculoskeletal: No tenderness Integumentary: No rashes Neurological: Normal gait, Normal speech, Normal strength at 5/5 x4 extr, Normal affect - Studies Laboratory Data (last 24 hrs) 04/16/25 04/16/25 12:50 12:50 WBC 3.80 L Hgb 13.4 L Hct 41.5 Plt Count 153 Sodium 139 Potassium 4.7 BUN 51 H Creatinine 1.58 H Glucose 203 H <Julian Peraza - Last Filed: 04/16/25 14:48> Assessment and Plan - Plan Assessment: Acute on chronic systolic congestive heart failure Chronic hypotension Hyperlipidemia Right inguinal hernia Diabetes mellitus type 2 has [id number] Plan: Acute on chronic systolic congestive heart failure Chronic hypotension Noted to have 7 beats of VT in ED on telemetry Continue diuresis with IV Lasix cardiology consultation Continue midodrine Coronary angiogram 06/09 showed mild CAD Hyperlipidemia Continue statin Right inguinal hernia Recurrent wires requires cardiology clearance prior to surgical invention Diabetes mellitus type 2 has [id number]-tfafwsnth ACHS Accu-Chek, sign scale insulin DVT PPX: Lovenox Code status: Full code Discharge Plan: Home Plan to discharge in: 72 Hours - Advance Directives Does patient have a Living Will: No Does patient have a Durable POA for Healthcare: No - Code Status/Comfort Care Code Status Assessed: Yes (Full code) Critical Care: No Time Spent Managing Pts Care (In Minutes): 70 <Julian Peraza - Last Filed: 04/16/25 14:48> Date of Service: 04/16/25 Patient was seen and examined. Events of the last 24 hours have been noted. Spoke with with EVELYN regarding patient's clinical picture after evaluating and examining the patient independently. I performed a substantial part of the MDM during this patient's care today. I personally made or approved the documented management plan and acknowledge its risk of complications. I agree with the findings and documentation provided in the EVELYN's notes. <June Zavala - Last Filed: 04/22/25 01:01>
[2025-04-16] MEDS ORDERED: MIDODRINE HCL 5 MG TABLET ONE (15:47)
[2025-04-16 16:17] VITALS: O2SAT 100
[2025-04-16] MEDS: INSULIN REGULAR (HUMAN) 100 UNIT/ML SQ SCH (16:30)
[2025-04-16 16:39] VITALS: BMI 25.7
[2025-04-16] MEDS: FUROSEMIDE 20 MG/ 2ML VIAL IV SCH (16:47)
[2025-04-16] MEDS: MIDODRINE HCL 5 MG TABLET PO SCH (21:00)
[2025-04-16] MEDS: SACUBITRIL/VALSARTAN 24/26 MG TAB PO SCH (21:00)
[2025-04-16] MEDS: ATORVASTATIN 80 MG TAB PO SCH (21:01)
[2025-04-17 04:46] LABS: Absolute Lymphocytes (CBC) 0.9 K/uL (0.7-4.9); Hematocrit 36.5 % (39.6-49.0); Hemoglobin 12.1 g/dL (13.6-17.9); MCH 29.0 pg (27.0-35.0); MCHC 33.2 g/dL (32.0-36.0); MCV 87.2 fL (80-100); MPV 9.0 fL (7.6-11.3); Nucleated RBC Absolute Count 0.0 (0-0); Nucleated Red Blood Cells % 0.2 % (0-0); RBC Red Blood Cell Count 4.19 M/uL (4.33-5.43); White Blood Count 3.00 thou/uL (4.3-10.9)
[2025-04-17 05:00] LABS: ALT/SGPT 30.0 U/L (16-61); AST/SGOT 21.0 U/L (15-37); Albumin 2.5 g/dL (3.4-5.0); Albumin/Globulin Ratio 1.0 (1.1-1.8); Alkaline Phosphatase 111.0 U/L (45-117); Anion Gap 8.0 mEq/L (5.0-15.0); BUN Blood Urea Nitrogen 48.0 mg/dL (7-18); Globulin 2.5 g/dL (2.3-3.5); Glucose Level 95.0 mg/dL (74-106); Magnesium 2.0 mg/dL (1.6-2.4); Potassium 4.0 mEq/L (3.5-5.1)
[2025-04-17] MEDS ORDERED: ATORVASTATIN 20 MG TAB PO SCH (09:00)
[2025-04-17] MEDS: SACUBITRIL/VALSARTAN 24/26 MG TAB PO SCH (09:00)
[2025-04-17] MEDS ORDERED: SACUBITRIL/VALSARTAN 24/26 MG TAB PO SCH (09:00)
[2025-04-17] MEDS: ASPIRIN 81 MG CHEWABLE TABLET PO SCH (09:00)
[2025-04-17] MEDS: POTASSIUM CL SA 10 MEQ TAB PO SCH (09:19)
[2025-04-17] MEDS: ENOXAPARIN 40 MG/0.4 ML SQ SCH (09:22)
[2025-04-17] MEDS: EMPAGLIFLOZIN 25 MG TABLET PO SCH (09:47)
--- NOTE | 2025-04-17 11:56 | P.CNS ---
Date of Consult: 04/17/25 Chief Complaint: CHF exacerbation History of Present Illness: Patient with PMH of heart failure, systolic, non ischemic in nature,, presented with worsening bilateral lower extremities swelling, denies chest pain, no palpitations, no syncope. Allergies No Known Allergies Allergy (Verified 10/30/20 16:37) Home medications list reviewed: Yes Home Medications: Atorvastatin Calcium [Lipitor*] 80 mg PO DAILY 06/16/23 Empagliflozin [Jardiance] 25 mg PO DAILY 06/16/23 Aspirin 81 mg PO DAILY #30 tab.chew 06/18/23 Midodrine HCl [Proamatine*] 5 mg PO TID #90 tab 06/18/23 Potassium Chloride 10 meq PO DAILY #30 tab 06/18/23 Sacubitril/Valsartan [Entresto 24 mg-26 mg Tablet] 0.5 tab PO BID #30 tab 06/18/23 Furosemide [Lasix] 40 mg PO BIDL 04/16/25 Vericiguat [Verquvo] 5 mg PO DAILY 04/16/25 - Past Medical/Surgical History Diabetic: Yes -: Chronic systolic CHF -: Mild CAD -: Chronic hypotension -: Diabetes mellitus type [id number] -: Lt hip sx Psychosocial/ Personal History: Lives at home with family - Social History Alcohol use: No CD- Drugs: No Caffeine use: No Place of Residence: Home Review of Systems 10-point ROS is otherwise unremarkable Physical Examination Temp Pulse Resp BP Pulse Ox 97.8 F 72 13 88/57 L 98 04/17/25 08:00 04/17/25 08:00 04/17/25 08:00 04/17/25 08:00 04/17/25 08:00 General: Alert, In no apparent distress HEENT: Atraumatic, PERRLA, Mucous membr. moist/pink, EOMI, Sclerae nonicteric Neck: Supple, 2+ carotid pulse no bruit, No LAD, Without JVD or thyroid abnormality Respiratory: Clear to auscultation bilaterally, Normal air movement Cardiovascular: Regular rate/rhythm, Normal S1 S2, Edema (+3 to bilateral lower extremities) Gastrointestinal: Normal bowel sounds, No tenderness Musculoskeletal: No tenderness Integumentary: No rashes Neurological: Normal gait, Normal speech, Normal tone, Normal affect Lymphatics: No axilla or inguinal lymphadenopathy Laboratory Data (last 24 hrs) 04/16/25 04/16/25 12:50 12:50 WBC 3.80 L Hgb 13.4 L Hct 41.5 Plt Count 153 Sodium 139 Potassium 4.7 BUN 51 H Creatinine 1.58 H Glucose 203 H - Problems (1) Acute on chronic combined systolic and diastolic CHF (congestive heart failure) Current Visit: Yes Status: Acute Plan: Patient with significant swelling of bilateral lower extremities advise to place patient on lasix drip at 2.5 mg/hr monitor input and output and electrolytes continue Midodrine for BP support will decide about GDMT for heart failure depending on his BP. (2) CAD (coronary artery disease) Current Visit: Yes Status: Acute Plan: Mild, had cath done in 2022 that shown mild CAD Continue ASA 81 mg daily
[2025-04-17] MEDS: ALBUMIN HUMAN 25% 12.5 GM, FUROSEMIDE 100 MG in NA CHLORIDE 0.9% 40 ML IV SCH (16:00)
[2025-04-17] MEDS: ALBUMIN HUMAN 25% 200 ML IV ONE ×2 (16:41→20:17)
[2025-04-18 04:55] LABS: Absolute Lymphocytes (CBC) 0.8 K/uL (0.7-4.9); Hematocrit 34.9 % (39.6-49.0); Hemoglobin 12.0 g/dL (13.6-17.9); MCH 29.9 pg (27.0-35.0); MCHC 34.5 g/dL (32.0-36.0); MCV 86.6 fL (80-100); MPV 8.9 fL (7.6-11.3); Nucleated RBC Absolute Count 0.0 (0-0); Nucleated Red Blood Cells % 0.1 % (0-0); RBC Red Blood Cell Count 4.02 M/uL (4.33-5.43); White Blood Count 3.00 thou/uL (4.3-10.9)
[2025-04-18 05:14] LABS: ALT/SGPT 34.0 U/L (16-61); AST/SGOT 23.0 U/L (15-37); Albumin 2.8 g/dL (3.4-5.0); Albumin/Globulin Ratio 1.1 (1.1-1.8); Alkaline Phosphatase 108.0 U/L (45-117); Anion Gap 7.2 mEq/L (5.0-15.0); BUN Blood Urea Nitrogen 45.0 mg/dL (7-18); Globulin 2.5 g/dL (2.3-3.5); Glucose Level 188.0 mg/dL (74-106); Magnesium 2.1 mg/dL (1.6-2.4); NT PRO-BNP 12599.0 pg/mL (<125); Potassium 4.2 mEq/L (3.5-5.1)
[2025-04-18] MEDS: FUROSEMIDE 20 MG/ 2ML VIAL IV ONE (12:00)
[2025-04-18] MEDS: FUROSEMIDE 100 MG in NA CHLORIDE 0.9% 90 ML IV SCH (13:22)
--- NOTE | 2025-04-18 17:07 | RAD REPORT ---
EXAMINATION: US BILATERAL LOWER EXTREMITY VENOUS DOPPLER CLINICAL INDICATION: CHF TECHNIQUE: Complete bilateral duplex sonography of the BILATERAL lower extremity veins was performed. The examination included compression for vein patency, color Doppler imaging and flow augmentation in response to distal compression of the distal external iliac, common femoral, femoral, popliteal, t ibial, and great and small saphenous veins. COMPARISON: No prior exam. FINDINGS: Duplex sonography testing of the veins of the BILATERAL lower extremity was performed. Thrombus is se en in the right femoral vein mid aspect. Thrombus also seen in the left femoral vein to the popliteal vein. Bilateral Ha cysts seen. IMPRESSION: Positive for bilateral DVT.
[2025-04-19 05:29] LABS: Absolute Lymphocytes (CBC) 0.9 K/uL (0.7-4.9); Hematocrit 36.4 % (39.6-49.0); Hemoglobin 12.3 g/dL (13.6-17.9); MCH 29.4 pg (27.0-35.0); MCHC 33.8 g/dL (32.0-36.0); MCV 86.9 fL (80-100); MPV 8.8 fL (7.6-11.3); Nucleated RBC Absolute Count 0.0 (0-0); Nucleated Red Blood Cells % 0.2 % (0-0); RBC Red Blood Cell Count 4.19 M/uL (4.33-5.43); White Blood Count 2.80 thou/uL (4.3-10.9)
[2025-04-19 05:48] LABS: ALT/SGPT 33.0 U/L (16-61); AST/SGOT 17.0 U/L (15-37); Albumin 2.7 g/dL (3.4-5.0); Albumin/Globulin Ratio 1.0 (1.1-1.8); Alkaline Phosphatase 109.0 U/L (45-117); Anion Gap 8.9 mEq/L (5.0-15.0); BUN Blood Urea Nitrogen 50.0 mg/dL (7-18); Globulin 2.7 g/dL (2.3-3.5); Glucose Level 114.0 mg/dL (74-106); Magnesium 2.1 mg/dL (1.6-2.4); Potassium 3.9 mEq/L (3.5-5.1)
[2025-04-19] MEDS: POTASSIUM CL SA 10 MEQ TAB PO ONE (09:00)
[2025-04-19] MEDS: APIXABAN 2.5 MG TABLET PO ONE (09:49)
[2025-04-19] MEDS: APIXABAN 5 MG TABLET PO SCH (12:00)
[2025-04-19 12:51] VITALS: BP 88/59; TEMP 97.9
--- NOTE | 2025-04-19 14:48 | P.PN ---
Subjective Date of Service: 04/19/25 Chief Complaint: CHF exacerbation Subjective: No new changes, No C/O voiced, Tolerating diet, Other (Patient really want to go home) Review of Systems 10-point ROS is otherwise unremarkable Physical Examination - Vital Signs Temperature: 97.9 F Blood Pressure: 88/59 Pulse: 78 Respirations: 18 Pulse Ox (%): 99 - Physical Exam General: Alert, In no apparent distress HEENT: Atraumatic, PERRLA, EOMI Neck: Supple, JVD not distended Respiratory: Clear to auscultation bilaterally, Normal air movement Cardiovascular: Regular rate/rhythm, Normal S1 S2 Gastrointestinal: Normal bowel sounds, No tenderness Musculoskeletal: No tenderness Integumentary: No rashes Neurological: Normal speech, Normal tone, Normal affect Lymphatics: No axilla or inguinal lymphadenopathy - Studies Medications List Reviewed: Yes Assessment And Plan - Current Problems (Diagnosis) (1) Acute on chronic combined systolic and diastolic CHF (congestive heart failure) Current Visit: Yes Status: Acute Plan: Patient with significant swelling of bilateral lower extremities, US venous shown bilateral SFV clots, this can be venous stasis patient diursed well with lasix drip but he really want to be dsicharged lasix 20 mg po daily monitor input and output and electrolytes continue Midodrine for BP support (2) CAD (coronary artery disease) Current Visit: Yes Status: Acute Plan: Mild, had cath done in 2022 that shown mild CAD Continue ASA 81 mg daily (3) DVT (deep venous thrombosis) Current Visit: Yes Status: Acute Plan: Venous duplex shown bilateral SFV clots Eliquis 10 mg po BID for 7 days then switch to 5 mg po BID
== END 2025-04-19 16:41 | disposition home or self-care (01) | DRG 291 ==
LOC: ER 11:44 → ERHOLD 14:38 → 2ND 15:00
PROVIDERS: ADMIT Hospitalist; ATTEND Hospitalist
DX: I11.0 Hypertensive heart disease with heart failure (principal); I50.43 Acute on chronic combined systolic (congestive) and diastolic (congestive) heart failure; N17.9 Acute kidney failure, unspecified; I95.89 Other hypotension; E78.5 Hyperlipidemia, unspecified; E11.9 Type 2 diabetes mellitus without complications; K40.90 Unilateral inguinal hernia, without obstruction or gangrene, not specified as recurrent; I25.10 Atherosclerotic heart disease of native coronary artery without angina pectoris; F17.200 Nicotine dependence, unspecified, uncomplicated; Z79.82 Long term (current) use of aspirin; Z79.02 Long term (current) use of antithrombotics/antiplatelets; Z79.84 Long term (current) use of oral hypoglycemic drugs; Z79.899 Other long term (current) drug therapy
CPT/HCPCS: 36415; 80048; 80053; 82533; 82947; 83735; 83880; 85025; 93970; 96374; 99285; J1650; J1815; J1938; J7050; P9047